=== PATIENT | female | born 1965 | race Hispanic/Latino ===

== ENCOUNTER 2019-09-24 08:25 | Observation (INO) | payer MEDICAID, SELFPAY ==
--- NOTE | ~2019-09-24 | US_ITS ---
US right upper quadrant INDICATION: Pancreatitis PROCEDURE: Realtime right upper abdominal ultrasound. COMPARISON: CT dated 09/24/2019 FINDINGS: The pancreas is normal without focal mass or pancreatic ductal dilation. There is hepatic steatosis. There is normal directional flow in the portal vein. The gallbladder is normal without stones, gallbladder wall thickening or pericholecystic fluid. Comm on bile duct measures 7.6 mm. Positive sonographic Bowser's sign. Spleen is normal. IMPRESSION: 1: Mildly dilated common bile duct with positive sonographic Bowser's sign. No evidence for cholelith iasis. Consider acalculous cholecystitis in the appropriate clinical setting. 2: Hepatic steatosis. Reviewed, dictated and finalized at location A. IMPRESSION: 1: Mildly dilated common bile duct with positive sonographic Bowser's sign. No evidence for cholelithiasis. Consider acalculous cholecystitis in the appropria te clinical setting. 2: Hepatic steatosis.
--- NOTE | ~2019-09-24 | CT_ITS ---
EXAMINATION: CT abdomen pelvis w con DATE: 09/24/2019 09:40 INDICATION: Left abdominal pain. Nausea. TECHNIQUE: Computed tomography (CT) of the abdomen and pelvis was performed with 100 mL Omnipaque 350 intravenous contrast. Automated exposure control and iterative reconstruction technique were employe d. The dose-length product was 573.58 mGy-cm. COMPARISON: CT abdomen and pelvis 08/06/2018 FINDINGS: The visualized portions of the lung bases demonstrate minimal atelectasis. No pleural effus ion. The heart size is normal. No pericardial effusion. The liver, gallbladder, spleen, pancreas, adr enal glands, and kidneys are normal. There are no dilated loops of bowel. The appendix is normal. The re are no pathologically enlarged lymph nodes. There is no free intraperitoneal fluid. There is mild thoracolumbar spondylosis. IMPRESSION: 1. No etiology for the patient's symptoms. Reviewed, dictated and finalized at location A.
--- NOTE | 2019-09-24 08:28 | ED.ABDPAIN ---
HPI - Abdominal Pain General Chief Complaint: Abdominal Pain Stated Complaint: ABD PAIN Time Seen by Provider: 09/24/19 08:28 Source: patient Mode of arrival: ambulatory Limitations: no limitations History of Present Illness HPI narrative: Patient is a 54-year-old female with a history of type 2 diabetes and hyperlipidemia who presents to the emergency department for evaluation of abdominal pain. Patient reports a four-day history of left upper quadrant abdominal pain with radiation to the back. Patient denies any fever, cough or shortness of breath. She reports nausea. Pain is been constant in nature since Saturday. No pelvic pain, no ripping or tearing sensation to the pain. No diarrhea or constipation. No dysuria or hematuria. No abdominal distention. Patient denies any chest pain or diaphoresis. Related Data Home Medications Medication Instructions Recorded Confirmed empagliflozin [Jardiance] 25 mg PO QAM 09/24/19 glimepiride mg BID 09/24/19 metformin 1,000 mg PO BID 09/24/19 simvastatin 10 mg PO HS 09/24/19 sitagliptin [Januvia] mg 09/24/19 Allergies Allergy/AdvReac Type Severity Reaction Status Date / Time No Known Allergies Allergy Unverified 06/18/19 08:55 Review of Systems Review of Systems: Narrative: CONSTITUTIONAL: Denies fever, chills, or sweats. EYES: Denies visual changes, redness, or discharge. ENT: Denies rhinorrhea, congestion, sore throat, or otalgia. CARDIOVASCULAR: Denies chest pain, palpitations, or edema. RESPIRATORY: Denies cough or dyspnea. GASTROINTESTINAL: Reports abdominal pain and nausea GENITOURINARY: Denies dysuria or hematuria. SKIN: Denies rash or itching. MUSCULOSKELETAL: Denies back pain, joint pain, or myalgia. NEUROLOGIC: Denies headache, numbness, or weakness. [facility] Past Medical History Medical History (Updated 09/24/19 @ 10:08 by Delicia Mederos MD) Diabetes Hyperlipidemia Surgical History Surgical History (Updated 09/24/19 @ 08:40 by Delicia Mederos MD) H/O dilation and curettage Social History Social History (Updated 09/24/19 @ 08:40 by Delicia Mederos MD) Smoking status: Never smoker Alcohol intake: never Substance use: never Living arrangements: with family Gender identity (if verbalized by the patient): Female Exam Narrative: Exam Narrative: GENERAL: Awake, alert, conversant HEAD: Normocephalic, atraumatic. EYES: PERRLA and EOMI. ENT: Nares clear, no rhinorrhea or epistaxis. Mucous membranes moist. NECK: Supple. CHEST: No respiratory distress, breathing even and non labored HEART: Regular rate, sinus rhythm ABDOMEN:Non distended, tender in the left upper quadrant, no guarding, no rebound, positive left flank tenderness EXTREMITIES: Normal range of motion. No edema. SKIN: Warm, dry, no rash. NEURO:No focal deficits. Alert and oriented x3 Course Vital Signs Vital signs: Vital Signs Temperature 36.9 C 09/24/19 08:31 Pulse Rate 76 09/24/19 08:31 Respiratory Rate 18 09/24/19 08:31 Blood Pressure 169/69 H 09/24/19 08:31 Pulse Oximetry 98 09/24/19 08:31 Temperature 36.9 C 09/24/19 08:31 Pulse Rate 71 09/24/19 09:48 Respiratory Rate 14 09/24/19 09:48 Blood Pressure 130/63 09/24/19 09:48 Pulse Oximetry 96 09/24/19 09:48 MDM - Abdominal Pain MDM Narrative Medical decision making narrative: Patient presenting for evaluation of abdominal pain, found to have no leukocytosis, no severe electrolyte derangement, very minimal transaminitis, and elevation in lipase is most consistent with pancreatitis. CT scan shows no evidence of infection or necrosis. No sign of obstructive process. No elevation in alkaline phosphatase or hyperbilirubinemia. Patient will be admitted for elevated lipase in setting of abdominal pain which is most likely consistent with pancreatitis. Patient was admitted in stable condition after speaking with hospitalist. Differential Diagnosis Differential diagnosis: Likely
[2019-09-24 08:31] VITALS: BP 169/69; PULSE 76; RESP 18; TEMP 36.9; O2SAT 98
--- NOTE | 2019-09-24 08:37 | ECG_ITS ---
Measurements Intervals [place] Rate: 77 P: 4 [place]: 156 QRS: 3 QRSD: 90 T: 7 QT: 379 QTc: 431 Interpretive Statements SINUS RHYTHM LOW QRS VOLTAGE IN PRECORDIAL LEADS BORDERLINE R WAVE PROGRESSION, ANTERIOR LEADS BORDERLINE ECG Electronically Signed On 09-24-2019 10:09:34 CDT by Magdy Robles D.O.
[2019-09-24 08:56] LABS: Glucose Point of Care 101 (65-105)
[2019-09-24 09:05] LABS: Basophils Percent Auto 0.5 % (0.2-1.2); Eosinophils Absolute Auto 0.1 K/mm3 (0-0.3); Eosinophils Percent Auto 1.9 % (0-4.4); Hematocrit 43.4 % (37.0-47.0); Hemoglobin 14.8 g/dL (12.0-15.0); Immature Granulocyte Absolute 0.02 K/mm3 (0.00-0.031); Immature Granulocyte Percent A 0.3 % (0-0.5); Lymphocytes Absolute Auto 1.67 K/mm3 (0.9-3.2); Lymphocytes Percent Auto 26.6 % (18.3-44.2); Mean Corpuscular HGB Conc 34.1 g/dl (32-36); Mean Corpuscular Hemoglobin 29.8 pg (26-34); Mean Corpuscular Volume 87.3 fl (80-100); Mean Platelet Volume 9.9 fl (7.4-10.4); Monocytes Absolute Auto 0.6 K/mm3 (0.1-0.6); Monocytes Percent Auto 9.6 % (2.6-8.5); Neutrophils Absolute Auto 3.8 K/mm3 (1.3-6.7); Neutrophils Percent Auto 61.1 % (45.5-73.1); Platelet Count Result 240 k/mm3 (150-375); Red Blood Count 4.97 M/mm3 (4.2-5.4); Red Cell Distribution Width 12.3 % (11.5-14.5); White Blood Count 6.3 K/mm3 (4.5-10.0)
[2019-09-24] MEDS: SODIUM CHLORIDE 0.9% IV 1,000 ML 999 ML IV CONT (09:07)
[2019-09-24] MEDS: MORPHINE SULFATE 4 MG/ML INJ IV PUSH ×3 (09:08→20:48)
[2019-09-24] MEDS: ONDANSETRON INJ 4 MG/2 ML VIAL IV PUSH ×2 (09:08→12:57)
[2019-09-24 09:16] LABS: Alanine Aminotransferase 43 U/L (4-35); Albumin Level 4.5 g/dL (3.5-5.1); Alkaline Phosphatase 84 U/L (38-126); Aspartate Amino Transferase 39 U/L (14-36); Bilirubin,Total 0.4 mg/dL (0.2-1.3); Blood Urea Nitrogen 9 mg/dL (7-17); Calcium 9.1 mg/dL (8.4-10.2); Carbon Dioxide 23 mmol/L (22-30); Chloride 108 mmol/L (98-107); Estimated CRCL calculation 97 ml/min; Estimated Glomerular Filt Rate > 60; Glucose 104 mg/dL (65-105); INR 0.9; Lipase 1040 U/L (23-300); Potassium 3.9 mmol/L (3.4-5.0); Prothrombin Time 12.1 Seconds (11.1-14.7); Sodium 139 mmol/L (137-145)
[2019-09-24 09:17] LABS: Add Urine Microscopic? YES; Appearance Urine Clear (Clear); Bacteria Urine 2+ /hpf; Bilirubin Urine Negative (Negative); Blood Urine Negative (Negative); Color Urine Straw (Yellow); Glucose Urine UA 2+ mg/dL (Negative); Ketones Urine Negative (Negative); Leukocyte Esterase Ur Negative LEU/UL (Negative); Mucus Urine Rare /lpf; Nitrate Urine Negative (Negative); Protein Urine Negative (Negative); RBC Urine 0-2 /hpf (0-2); Squamous Epithelial Cell Urine Occasional /hpf (Few); Urobilinogen Urine Negative mg/dL (<2.0)
[2019-09-24 09:17] LABS: Partial Thromboplastin Time 27.8 SECONDS (22.3-36.8)
[2019-09-24 09:28] LABS: Troponin I < 0.012 ng/mL (0.000-0.034)
[2019-09-24 09:33] LABS: D Dimer 0.27 ug/mL (<0.48)
[2019-09-24 09:48] VITALS: BP 130/63; PULSE 71; RESP 14; O2SAT 96
[2019-09-24 11:36] VITALS: BP 118/65; PULSE 67; RESP 18; O2SAT 98
--- NOTE | 2019-09-24 11:53 | ADMGEN ---
This patient, Maylin Lau, was admitted to Medical Room 348-01. Patient/family oriented to hospital policies and general routines including ID bracelet, bed and alarms, visiting hours, pain management, procedures, bathroom and other care routines, personal items, smoking policy, room service/diet, and visiting hours. Valuables list has been completed. Information on how to activate the Rapid Response Team has been discussed. Patient/Family are encouraged to report perceived risks to care and to ask questions if they do not understand what they are told or what they should do.
[2019-09-24] MEDS: SODIUM CHLORIDE 0.9% IV 1,000 ML 125 ML IV CONT ×2 (12:54→20:51)
[2019-09-24 13:15] VITALS: BMI 31.6
--- NOTE | 2019-09-24 13:49 | PC.NURSE ---
During admission questioning I asked patient if she had any thoughts of harming herself or others. I was using assistance with our [employer] machine. Patient had a long and detailed statement about how and why she wanted/would kill herself. However, when asked if she felt that if she had the means to do so right now would she and she stated NO. I do not feel that this patient is a threat to herself, just feeling depressed about her current medical health situation. Suicide risk evaluation done, and I have notified provider.
[2019-09-24 14:00] VITALS: BP 118/62; PULSE 62; RESP 16; TEMP 36.5; O2SAT 99
--- NOTE | 2019-09-24 16:28 | PM.IMHP ---
H&P: HPI History of Present Illness Chief complaint: pancreatitis Narrative: Maylin Lau is a 54 year old female patient is a 54-year-old female with history of diabetes hypertension patient states the last 4 days is having left upper abdominal pain with nausea but no vomit no fever or chills no radiation of the pain, denies any rash along the left upper quadrant and the back, patient bowel movements are fine she has a good appetite, she denies any history of alcohol abuse, patient had a CT scan of the abdomen there was no significant pathology, her lipase are elevated to 1000 there is slight increase in her AST and ALT, bridge engineer system was used to communicate with the patient Review of Systems Review of Systems: All systems reviewed & are unremarkable except as noted in HPI and below PMFSH Past Medical History Medical History (Updated 09/24/19 @ 16:38 by Claudio Ovalle MD) Diabetes Hyperlipidemia Surgical History Surgical History (Updated 09/24/19 @ 08:40 by Delicia Mederos MD) H/O dilation and curettage Family History Family History (Updated 09/24/19 @ 13:28 by Ada Fung RN) Mother Cancer Social History Social History (Updated 09/24/19 @ 08:40 by Delicia Mederos MD) Smoking status: Never smoker Alcohol intake: never Substance use: never Living arrangements: with family Gender identity (if verbalized by the patient): Female Spiritual care concerns: Yes Meds Home Medications and Allergies Home Medications Medication Instructions Recorded Confirmed Type empagliflozin [Jardiance] 25 mg PO QAM 09/24/19 09/24/19 History glimepiride 4 mg PO BID 09/24/19 09/24/19 History metformin 1,000 mg PO BID 09/24/19 09/24/19 History simvastatin 10 mg PO DAILY 09/24/19 09/24/19 History sitagliptin [Januvia] 100 mg PO DAILY 09/24/19 09/24/19 History Allergies Allergy/AdvReac Type Severity Reaction Status Date / Time No Known Allergies Allergy Verified 09/24/19 11:56 Vital Signs Vital Signs - 24 hr 09/24/19 08:31 09/24/19 09:48 09/24/19 11:36 Temperature 98.4 F Pulse Rate 76 71 67 Respiratory Rate 18 14 18 Blood Pressure 169/69 H 130/63 118/65 Pulse Oximetry 98 96 98 09/24/19 14:00 Temperature 97.7 F Pulse Rate 62 Respiratory Rate 16 Blood Pressure 118/62 Pulse Oximetry 99 Exam Narrative: Exam Narrative: Moderately obese Const: General: no acute distress and uncomfortable HENMT: General nose exam: Normal nares present Mouth: Yes moist mucous membranes Eyes: General: appearance normal, both eyes and all related structures Sclera: sclerae normal Neck: Neck: supple Resp: Effort & Inspection: normal respiratory effort Auscultation: clear to auscultation bilaterally Cardio: Rate: regular rate Rhythm: regular rhythm GI: GI Palp: Yes Soft to palpation Other: Patient is tender epigastric as well as left upper quadrant Skin: General skin exam: normal color Neuro: Speech: normal speech Sensory Exam: normal sensation Extrem: General: normal to inspection Psych: Affect: Anxious affect present H&P: Results Labs Labs: Short CBC 09/24/19 Range/Units 08:57 WBC 6.3 (4.5-10.0) K/mm3 Hgb 14.8 (12.0-15.0) g/dL Hct 43.4 (37.0-47.0) % Plt Count 240 (150-375) k/mm3 BMP 09/24/19 08:57 Sodium 139 Potassium 3.9 Chloride 108 H Carbon Dioxide 23 BUN 9 Creatinine 0.50 L Glucose 104 Calcium 9.1 Cardiac Enzymes 09/24/19 Range/Units 08:57 Troponin I < 0.012 (0.000-0.034) ng/mL Liver Function 09/24/19 Range/Units 08:57 Total Bilirubin 0.4 (0.2-1.3) mg/dL AST 39 H (14-36) U/L ALT 43 H (4-35) U/L Alkaline Phosphatase 84 (38-126) U/L Albumin 4.5 (3.5-5.1) g/dL Urine 09/24/19 Range/Units 09:00 Urine Color Straw (Yellow) Urine Appearance Clear (Clear) Urine pH 6.0 (5.0-9.0) Ur Specific [place] 1.010 (1.001-1.035) Urine Protein Negat
[2019-09-24 17:34] LABS: Hemoglobin A1C 7.2 % (<5.7)
[2019-09-24 21:47] VITALS: BP 120/65; PULSE 70; RESP 16; TEMP 36.4; O2SAT 95
[2019-09-25] MEDS: MORPHINE SULFATE 4 MG/ML INJ IV PUSH ×3 (00:49→09:30)
[2019-09-25 00:54] LABS: Glucose Point of Care 102 (65-105)
[2019-09-25] MEDS: SODIUM CHLORIDE 0.9% IV 1,000 ML 125 ML IV CONT ×3 (04:56→21:52)
[2019-09-25 05:05] VITALS: BP 120/60; PULSE 68; RESP 15; TEMP 36.2; O2SAT 95
[2019-09-25 05:09] LABS: Glucose Point of Care 105 (65-105)
[2019-09-25 05:27] LABS: Hematocrit 39.5 % (37.0-47.0); Hemoglobin 13.3 g/dL (12.0-15.0); Mean Corpuscular HGB Conc 33.7 g/dl (32-36); Mean Platelet Volume 9.8 fl (7.4-10.4); Platelet Count Result 212 k/mm3 (150-375); Red Blood Count 4.44 M/mm3 (4.2-5.4); Red Cell Distribution Width 12.6 % (11.5-14.5); White Blood Count 4.7 K/mm3 (4.5-10.0)
[2019-09-25 05:42] LABS: Alanine Aminotransferase 41 U/L (4-35); Albumin Level 3.7 g/dL (3.5-5.1); Alkaline Phosphatase 68 U/L (38-126); Aspartate Amino Transferase 39 U/L (14-36); Bilirubin,Total 0.5 mg/dL (0.2-1.3); Blood Urea Nitrogen 9 mg/dL (7-17); Calcium 8.6 mg/dL (8.4-10.2); Carbon Dioxide 24 mmol/L (22-30); Chloride 107 mmol/L (98-107); Cholesterol 149 mg/dL (0-200); Estimated CRCL calculation 97 ml/min; Estimated Glomerular Filt Rate > 60; Glucose 105 mg/dL (65-105); HDL Direct 34 mg/dL; Lipase 151 U/L (23-300); Potassium 3.9 mmol/L (3.4-5.0); Sodium 136 mmol/L (137-145); Triglycerides 176 mg/dL (<150)
[2019-09-25 05:46] LABS: Hemoglobin A1C 7.3 % (<5.7)
[2019-09-25 05:53] LABS: LDL Cholesterol Direct 89 mg/dL
[2019-09-25 06:48] LABS: Hepatitis B Surface Antigen Negative (Negative)
[2019-09-25 06:54] LABS: HAV RESULT Negative (Negative); Hepatitis B Core IgM Result Negative (Negative)
[2019-09-25 07:06] LABS: Hepatitis C Virus Antibody Negative (Negative)
[2019-09-25 11:33] LABS: Glucose Point of Care 145 (65-105)
[2019-09-25] MEDS: ONDANSETRON INJ 4 MG/2 ML VIAL IV PUSH (12:35)
[2019-09-25 14:00] VITALS: BP 115/59; PULSE 76; RESP 18; TEMP 36.4; O2SAT 97
--- NOTE | 2019-09-25 15:19 | PM.IMPN ---
Progress Note: A&P Assessment and Plan (1) Acute pancreatitis: Qualifiers: Acute pancreatitis complication: unspecified Pancreatitis type: other Qualified Code(s): K85.80 - Other acute pancreatitis without necrosis or infection Code(s): K85.90 - Acute pancreatitis without necrosis or infection, unspecified Status: Acute Assessment and Plan: 09/25/19 15:19 Maylin Lau is a 54 year old female patient is a 54-year-old female with history of diabetes hypertension patient states the last 4 days is having left upper abdominal pain with nausea but no vomit no fever or chills no radiation of the pain, denies any rash along the left upper quadrant and the back, patient bowel movements are fine she has a good appetite, she denies any history of alcohol abuse, patient had a CT scan of the abdomen there was no significant pathology, her lipase are elevated to 1000 there is slight increase in her AST and ALT, service plumber system was used to communicate with the patient will keep patient NPO will hydrate the patient monitor lipase, further evaluate will do abdominal ultrasound Today patient still complains of left upper quadrant pain, ultrasound abdomen essentially normal as well as CT scan of abdomen did not show any pathology patient lipase are now back to no AST and ALT slightly elevated however acute hepatitis panel is negative, patient is quite tender in left upper quadrant will continue monitor 1 more day and reassess tomorrow possibly discharge. (2) Elevated liver enzymes: Code(s): R74.8 - Abnormal levels of other serum enzymes Status: Acute Assessment and Plan: Most likely secondary to inflammation with hepatitis panel will follow-up on liver ultrasound, liver ultrasound essentially normal except fatty liver acute hepatitis panel is negative (3) Diabetes: Code(s): E11.9 - Type 2 diabetes mellitus without complications Status: Acute Assessment and Plan: Will continue home regimen and monitor, patient's hemoglobin A1c is 7.3 Subjective Date/time seen: 09/25/19 15:19 Maylin Lau is a 54 year old female patient is a 54-year-old female with history of diabetes hypertension patient states the last 4 days is having left upper abdominal pain with nausea but no vomit no fever or chills no radiation of the pain, denies any rash along the left upper quadrant and the back, patient bowel movements are fine she has a good appetite, she denies any history of alcohol abuse, patient had a CT scan of the abdomen there was no significant pathology, her lipase are elevated to 1000 there is slight increase in her AST and ALT, service plumber system was used to communicate with the patient will keep patient NPO will hydrate the patient monitor lipase, further evaluate will do abdominal ultrasound Today patient still complains of left upper quadrant pain, ultrasound abdomen essentially normal as well as CT scan of abdomen did not show any pathology patient lipase are now back to no AST and ALT slightly elevated however acute hepatitis panel is negative, patient is quite tender in left upper quadrant will continue monitor 1 more day and reassess tomorrow possibly discharge. Review of Systems Review of Systems: All systems reviewed & are unremarkable except as noted in HPI and below Exam Narrative: Exam Narrative: Moderately obese Const: General: no acute distress and uncomfortable HENMT: General nose exam: Normal nares present Mouth: Yes moist mucous membranes Eyes: General: appearance normal, both eyes and all related structures Sclera: sclerae normal Neck: Neck: supple Resp: Effort & Inspection: normal respiratory effort Auscultation: clear to auscultation bilaterally Cardio: Rate: regular rate Rhythm: regular rhythm GI: Other: Patient is tender epigastric as well as left upper quadrant Skin: General skin exam: normal color Neuro: Speech: n
[2019-09-25 16:39] LABS: Glucose Point of Care 152 (65-105)
[2019-09-25 20:34] VITALS: BP 133/63; PULSE 77; RESP 20; TEMP 37.6; O2SAT 96
[2019-09-25 21:50] VITALS: PULSE 77; RESP 20; O2SAT 96
[2019-09-26 00:30] LABS: Glucose Point of Care 139 (65-105)
[2019-09-26 05:53] VITALS: BP 120/65; PULSE 76; RESP 16; TEMP 36.5; O2SAT 95
[2019-09-26] MEDS: SODIUM CHLORIDE 0.9% IV 1,000 ML 125 ML IV CONT (06:05)
[2019-09-26 07:24] LABS: Alanine Aminotransferase 37 U/L (4-35); Albumin Level 3.8 g/dL (3.5-5.1); Alkaline Phosphatase 69 U/L (38-126); Aspartate Amino Transferase 32 U/L (14-36); Bilirubin,Total 0.5 mg/dL (0.2-1.3); Blood Urea Nitrogen 6 mg/dL (7-17); Calcium 8.8 mg/dL (8.4-10.2); Carbon Dioxide 28 mmol/L (22-30); Chloride 105 mmol/L (98-107); Estimated CRCL calculation 97 ml/min; Estimated Glomerular Filt Rate > 60; Glucose 116 mg/dL (65-105); Lipase 196 U/L (23-300); Potassium 3.4 mmol/L (3.4-5.0); Sodium 136 mmol/L (137-145)
[2019-09-26 07:43] LABS: Hematocrit 40.3 % (37.0-47.0); Hemoglobin 13.7 g/dL (12.0-15.0); Mean Corpuscular Hemoglobin 29.7 pg (26-34); Mean Corpuscular Volume 87.4 fl (80-100); Platelet Count Result 210 k/mm3 (150-375); Red Blood Count 4.61 M/mm3 (4.2-5.4); Red Cell Distribution Width 12.2 % (11.5-14.5); White Blood Count 3.7 K/mm3 (4.5-10.0)
[2019-09-26 07:58] LABS: Glucose Point of Care 122 (65-105)
[2019-09-26 08:36] VITALS: PULSE 76; RESP 16; O2SAT 94
[2019-09-26 11:47] LABS: Glucose Point of Care 133 (65-105)
[2019-09-26 14:00] VITALS: BP 126/62; PULSE 94; RESP 16; TEMP 36.7; O2SAT 97
--- NOTE | 2019-09-26 14:49 | PM.DS ---
DS: Admitting Diagnosis Admitting Diagnosis Admitting Diagnosis: Other acute pancreatitis without necrosis or infection DS: Discharge Diagnosis Discharge Diagnosis (1) Acute pancreatitis: Qualifiers: Acute pancreatitis complication: unspecified Pancreatitis type: other Qualified Code(s): K85.80 - Other acute pancreatitis without necrosis or infection Code(s): K85.90 - Acute pancreatitis without necrosis or infection, unspecified Status: Acute Assessment and Plan: 09/25/19 15:19 Maylin Lau is a 54 year old female patient is a 54-year-old female with history of diabetes hypertension patient states the last 4 days is having left upper abdominal pain with nausea but no vomit no fever or chills no radiation of the pain, denies any rash along the left upper quadrant and the back, patient bowel movements are fine she has a good appetite, she denies any history of alcohol abuse, patient had a CT scan of the abdomen there was no significant pathology, her lipase are elevated to 1000 there is slight increase in her AST and ALT, transcription system was used to communicate with the patient will keep patient NPO will hydrate the patient monitor lipase, further evaluate will do abdominal ultrasound Today patient still complains of left upper quadrant pain, ultrasound abdomen essentially normal as well as CT scan of abdomen did not show any pathology patient lipase are now back to no AST and ALT slightly elevated however acute hepatitis panel is negative, patient is quite tender in left upper quadrant will continue monitor 1 more day and reassess tomorrow possibly discharge. (2) Elevated liver enzymes: Code(s): R74.8 - Abnormal levels of other serum enzymes Status: Acute Assessment and Plan: Most likely secondary to inflammation with hepatitis panel will follow-up on liver ultrasound, liver ultrasound essentially normal except fatty liver acute hepatitis panel is negative (3) Diabetes: Code(s): E11.9 - Type 2 diabetes mellitus without complications Status: Acute Assessment and Plan: Will continue home regimen and monitor, patient's hemoglobin A1c is 7.3 DS: Summary Hospital Course Reason for hospitalization: Maylin Lau is a 54 year old female patient is a 54-year-old female with history of diabetes hypertension patient states the last 4 days is having left upper abdominal pain with nausea but no vomit no fever or chills no radiation of the pain, denies any rash along the left upper quadrant and the back, patient bowel movements are fine she has a good appetite, she denies any history of alcohol abuse, patient had a CT scan of the abdomen there was no significant pathology, her lipase are elevated to 1000 there is slight increase in her AST and ALT, transcription system was used to communicate with the patient Hospital Course: 09/25/19 15:19 Maylin Lau is a 54 year old female patient is a 54-year-old female with history of diabetes hypertension patient states the last 4 days is having left upper abdominal pain with nausea but no vomit no fever or chills no radiation of the pain, denies any rash along the left upper quadrant and the back, patient bowel movements are fine she has a good appetite, she denies any history of alcohol abuse, patient had a CT scan of the abdomen there was no significant pathology, her lipase are elevated to 1000 there is slight increase in her AST and ALT, transcription system was used to communicate with the patient will keep patient NPO will hydrate the patient monitor lipase, further evaluate will do abdominal ultrasound Today patient still complains of left upper quadrant pain, ultrasound abdomen essentially normal as well as CT scan of abdomen did not show any pathology patient lipase are now back to normal, AST and ALT slightly elevated however acute hepatitis panel is negative, patient is quite tende
== END 2019-09-26 16:00 | disposition home or self-care (01) ==
LOC: ANHED 10:39 → ANH3MED 10:53
PROVIDERS: Admitting Provider Family Medicine; Emergency Provider Emergency Medicine; Visit Provider Family Medicine
DX: K85.80 Other acute pancreatitis without necrosis or infection (principal); R74.8 Abnormal levels of other serum enzymes; E11.9 Type 2 diabetes mellitus without complications; I10 Essential (primary) hypertension; E78.5 Hyperlipidemia, unspecified; Z79.84 Long term (current) use of oral hypoglycemic drugs; Z79.899 Other long term (current) drug therapy
CPT/HCPCS: 36415; 74177; 76705; 80053; 80061; 80074; 81001; 82948; 83036; 83690; 84484; 85025; 85027; 85380; 85610; 85730; 93005; 96360; 96361; 96365; 96374; 96375; 96376; 99285; A9270; G0378; G0379; J0131; J2270; J2405; J7030; Q9967

== ENCOUNTER → 2020-08-23 06:49 | Outpatient (CLI) | payer OTHER, SELFPAY ==
[2020-08-23 20:46] LABS: SARS-CoV-2 RNA PCR Negative
== END ==
PROVIDERS: Visit Provider Obstetrics & Gynecology
DX: Z01.812 Encounter for preprocedural laboratory examination (principal); Z20.822 Contact with and (suspected) exposure to COVID-19
CPT/HCPCS: C9803; U0003; U0005

== ENCOUNTER 2020-08-23 08:27 | Outpatient (CLI) | payer OTHER, SELFPAY ==
--- NOTE | 2020-08-23 12:34 | ECG_ITS ---
Measurements Intervals [place] Rate: 73 P: 55 [place]: 159 QRS: -23 QRSD: 87 T: 39 QT: 358 QTc: 396 Interpretive Statements SINUS RHYTHM BORDERLINE R WAVE PROGRESSION, ANTERIOR LEADS BASELINE ARTIFACT- III, AVF BORDERLINE ECG Electronically Signed On 08-23-2020 14:53:32 CDT by Magdy Robles D.O.
[2020-08-23 13:09] LABS: Anion Gap 8 mmol/L (8-16); Blood Urea Nitrogen 11 mg/dL (7-17); Calcium 9.2 mg/dL (8.4-10.2); Carbon Dioxide 26 mmol/L (22-30); Chloride 102 mmol/L (98-107); Estimated Glomerular Filt Rate > 60; Glucose 341 mg/dL (65-105); Potassium 4.1 mmol/L (3.4-5.0); Sodium 136 mmol/L (137-145)
== END 2020-08-23 08:28 | disposition home or self-care (01) ==
PROVIDERS: Anesthesiology; Visit Provider Obstetrics & Gynecology
DX: E11.9 Type 2 diabetes mellitus without complications (principal); Z01.818 Encounter for other preprocedural examination; R94.31 Abnormal electrocardiogram [ECG] [EKG]
CPT/HCPCS: 36415; 80048; 93005; C9803; U0003; U0005

== ENCOUNTER 2020-08-26 01:09 | Day surgery (SDC) | payer OTHER, SELFPAY ==
[2020-08-23 12:00] VITALS: BP 120/64; PULSE 88; RESP 18; TEMP 36.3; O2SAT 97; BMI 31.4
--- NOTE | 2020-08-25 12:09 | WPDANESEPPF ---
Anes - Initial Pre Proc Eval Procedure: Operation Date: 08/26/20 10:30 Proposed Procedures p Loop Electrical Excision Procedure - Shade Garcia MD Date/Time: 08/25/20 12:09 Surgeon: Shade Garcia MD Pre Op Diagnosis: carcinoma of the cervix D06.9 Patient Data Age: 54 Gender: F Height: 1.57 m Weight: 78 kg Last Vital Signs Temp 36.3 C L 08/23/20 12:00 Pulse 88 08/23/20 12:00 Resp 18 08/23/20 12:00 BP 120/64 08/23/20 12:00 Pulse Ox 97 08/23/20 12:00 Allergies Allergy/AdvReac Type Severity Reaction Status Date / Time No Known Allergies Allergy Verified 08/26/20 09:28 Home Medications Medication Instructions Recorded Confirmed Type Januvia 100 mg PO DAILY 09/24/19 08/23/20 History Jardiance 25 mg PO QAM 09/24/19 08/23/20 History metformin 1,000 mg PO BID 09/24/19 08/23/20 History simvastatin 10 mg PO DAILY 09/24/19 08/23/20 History albuterol sulfate 2 puff INHALATION PRN PRN 08/23/20 08/23/20 History multivitamin [Multi-Vitamin] 1 tablet PO DAILY 08/23/20 08/23/20 History phenazopyridine [Pyridium] See Rx Instructions .ROUTE .COMPLEX 08/23/20 08/23/20 History Patient hx anesthesia problems: none Family hx anesthesia problems: none PMFSH Past Medical History Medical History (Updated 08/26/20 @ 06:31 by Shade Garcia MD) Asthma Cervical cancer cin3 EVAN III with severe dysplasia Diabetes Fibromyalgia KARLY (generalized anxiety disorder) History of female sterilization Hyperlipidemia Menopausal disorder Surgical History Surgical History (Updated 08/26/20 @ 06:31 by Shade Garcia MD) Delivery by section H/O dilation and curettage Tubal ligation status Family History Family History Mother Cancer Social History Social History (Updated 08/26/20 @ 06:40 by Shade Garcia MD) Smoking status: Never smoker Second hand tobacco smoke exposure: No Alcohol intake: never Substance use: never Substance use type: does not use Living arrangements: alone Occupation/Education: unemployed Gender identity (if verbalized by the patient): Female Sexual Orientation (if Verbalized by the Patient): Straight or Heterosexual Spiritual care concerns: No Agree to blood products: Yes Anes - Eval Final PreProcedure Day of Procedure 08/25/20 12:09 Patient weight: obese Heart: regular rate and rhythm Lungs: clear to auscultation and normal air movement Airway: Mallampati scale class III Neurological: alert and oriented Last oral intake: >/= 8 hours ASA classification: III Emergent: no Anesthetic plan: proceed Anesthesia type and monitoring: general GIVS and standard monitoring Informed Consent: The patient's anesthetic plan and its attendant risks and benefits were discussed with the patient/family/POA. Questions were solicited and answers provided to the satisfaction of the patient/family/POA.
--- NOTE | 2020-08-26 06:10 | PM.IMHP ---
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 She confirmed history of vaginal bleeding after intercourse approximately 2 months prior. She denied fevers, abdominal pain, new sexual partners. colposcopy performed with cx bx and ecc on 07/26/20 revealed--- Cervical intraepithelial neoplasia grade III with severe dysplasia - Colposcopy biopsy results: A. CERVIX BIOPSY: HIGH-GRADE (SEVERE) SQUAMOUS DYSPLASIA (EVAN III). ACUTE AND CHRONIC CERVICITIS. B. ENDOCERVICAL BIOPSY: SMALL DETACHED FRAGMENTS OF HIGH-GRADE DYSPLASTIC SQUAMOUS MUCOSA. Discussed results with patient and need for LEEP. Will have at [facility] with Dr. Garcia I explained her condition procedure and risks including but not limited to bleeding infection injury to cervix risk of anesthesia she understands accepts and agrees to proceed Chief Complaint: EVAN 3 Review of Systems Review of Systems: All systems reviewed & are unremarkable except as noted in HPI and below Constitutional: Constitutional: Reports no additional constitutional complaints Eyes: Eyes: Reports no additional eye complaints ENT: Reports system reviewed and no additional complaints, except as documented Cardiovascular: Cardiovascular: Reports no additional cardiovascular complaints Respiratory: Respiratory: Reports no additional respiratory complaints Gastrointestinal: Gastrointestinal: Reports no additional gastrointestinal complaints Genitourinary: Genitourinary: Reports no additional female genitourinary complaints Musculoskeletal: Musculoskeletal: Reports no additional musculoskeletal complaints Integumentary/Breasts: Skin/Breast: Reports system reviewed and no additional complaints, except as docu Neurologic: Reports system reviewed and no additional complaints, except as documented Psychiatric: Psychiatric: Reports no additional psychiatric complaints Endocrine: Endocrine: Reports no additional endocrine complaints Hematologic/Lymphatic: Hematologic/Lymphatic: Reports no additional hematologic/lymphatic complaints Allergic/Immunologic: Allergic/Immunologic: Reports no additional allergic/immunologic complaints FOR[facility]LY [facility], [facility] Past Medical History Medical History (Updated 08/26/20 @ 06:31 by Shade Garcia MD) Asthma Cervical cancer cin3 EVAN III with severe dysplasia Diabetes Fibromyalgia KARLY (generalized anxiety disorder) History of female sterilization Hyperlipidemia Menopausal disorder Surgical History Surgical History (Updated 08/26/20 @ 06:31 by Shade Garcia MD) Delivery by section H/O dilation and curettage Tubal ligation status Family History Family History Mother Cancer Social History Social History (Updated 08/26/20 @ 06:40 by Shade Garcia MD) Smoking status: Never smoker Second hand tobacco smoke exposure: No Alcohol intake: never Substance use: never Substance use type: does not use Living arrangements: alone Occupation/Education: unemployed Gender identity (if verbalized by the patient): Female Sexual Orientation (if Verbalized by the Patient): Straight or Heterosexual Spiritual care concerns: No Agree to blood products: Yes Meds Home Medications and Allergies Home Medications Medication Instructions Recorded Confirmed Type Januvia 100 mg PO DAILY 09/24/19 08/23/20 History Jardiance 25 mg PO QAM 09/24/19 08/23/20 History metformin 1,000 mg PO BID 09/24/19 08/23/20 History simvastatin 10 mg PO DAILY 09/24/19 08/23/20 History albuterol sulfate 2 puff INHALATION PRN PRN 08/23/20 08/23/20 History multivitamin [Multi-Vitamin] 1 tablet PO DAILY 08/23/20 08/23/20 History phenazopyridine [Pyridium] See Rx Instructions .ROUTE .COMPLEX 08/23/20 08/23/20 History Allergies Allergy/AdvReac Type Severity Re
--- NOTE | 2020-08-26 06:23 | P.HPUP_ITS ---
History and Physical Update Update Date/Time: 08/26/20 06:23 History and Physical has been reviewed, including an updated exam of the patient. There are NO changes in the patient's condition. Risks, benefits, and alternatives have been discussed and questions answered. Patient agrees to proceed with procedure. 08/26/20 06:10 56yo HF with SEVERE DYSPLASIA OF CERVIX CIN3; here for LEEP She had abnormal Pap 07/08/20 with HSIL and HPV. She confirmed history of vaginal bleeding after intercourse approximately 2 months prior. She denied fevers, abdominal pain, new sexual partners. colposcopy performed with cx bx and ecc on 07/26/20 revealed--- Cervical intraepithelial neoplasia grade III with severe dysplasia - Colposcopy biopsy results: A. CERVIX BIOPSY: HIGH-GRADE (SEVERE) SQUAMOUS DYSPLASIA (EVAN III). ACUTE AND CHRONIC CERVICITIS. B. ENDOCERVICAL BIOPSY: SMALL DETACHED FRAGMENTS OF HIGH-GRADE DYSPLASTIC SQUAMOUS MUCOSA. Discussed results with patient and need for LEEP. Will have at [facility] with Dr. Garcia I explained her condition procedure and risks including but not limited to bleeding infection injury to cervix risk of anesthesia she understands accepts and agrees to proceed
[2020-08-26] MEDS: ACETAMINOPHEN 500 MG TABLET 1000 MG PO (09:55)
[2020-08-26] MEDS: LACTATED RINGERS 1,000 ML 30 ML IV CONT (10:06)
[2020-08-26 10:09] VITALS: BP 103/56; PULSE 69; RESP 18; TEMP 36.3; O2SAT 97; BMI 31.1
--- NOTE | 2020-08-26 10:12 | SUR.PREOP ---
4148; USED [facility] FOR AMHARIC SPEAKING. FORMERLY [facility] #[id number]. ASKED ALL QUESTIONS FOR PREOP, COMFIRMED NPO STATUS, MEDICATIONS, PHARMACY, DR VALENCIA DISCUSSED ANESTHESIA USING [facility] ALSO. EXPLAINED PREOP PROCESS
[2020-08-26 10:19] LABS: Glucose Point of Care 218 (65-105)
[2020-08-26] MEDS: ceFAZolin SODIUM 1 GM VIAL 2 GM IV PUSH (11:55)
--- NOTE | 2020-08-26 12:25 | P.OP_ITS ---
Procedure Note - Detailed Date of procedure: 08/26/20 Pre-op diagnosis: carcinoma of the cervix D06.9 CIN3 Post-op diagnosis: same Procedure performed: LEEP Loop electrosurgical excision procedure ectocervical and endocervical Description of procedure: Informed consent obtained the patient was taken to the operating room given IV general anesthesia placed in the dorsal lithotomy position prepped and draped use sterile fashion a time-out was performed. Speculum was placed into the vagina vinegar wash of the cervix was followed by iodine staining of the cervix in the nonstaining areas weight lesions of the ectocervix was identified. Sutures were placed at 3 and 9:00 a.m. on the cervix. Using a medium loop the ectocervical disease was removed. Following this a small loop was used to remove the endocervical disease. Specimens were sent separately. A ball electrode was then used to and a coagulate the base of the cervix. And then Monsel's solution was applied to the cervix. Patient tolerated procedure well the speculum was removed patient was taken to the recovery stable condition Implants: None Anesthesia: GETA Surgeon: Shade Garcia MD Surveillance Technician: delivery driver assistant x1 Estimated blood loss (mL): 10 IV fluids (mL): 1,000 Urine output (mL): 100 Drains: No Packing: No Pathology: yes (LEEP-endocervical and ectocervical) Complications: None Condition: stable Disposition: same day Findings: Nonstaining areas of the ectocervix medium loop for the ectocervix small loop for the endocervix sutures at 3 and 9:00 a.m. Monsel's solution hemostasis Counts correct Complications none Antibiotic prophylaxis Ancef 2 g Taken to recovery room stable condition
[2020-08-26 12:26] VITALS: BP 108/65; PULSE 74; RESP 10; O2SAT 92
--- NOTE | 2020-08-26 12:27 | SUR.PREOP ---
1015; LATE NOTE, DR VALENCIA NOTIFIED OF ACCUCHECK OF 218. NO NEW ORDERS
[2020-08-26 12:55] VITALS: BP 109/66; PULSE 72; RESP 16; O2SAT 94
[2020-08-26 13:25] VITALS: BP 127/71; PULSE 70; RESP 16
[2020-08-26 13:37] LABS: Glucose Point of Care 221 (65-105)
[2020-08-26 13:37] LABS: Glucose Point of Care 168 (65-105)
== END 2020-08-26 13:30 | disposition home or self-care (01) ==
PROVIDERS: Visit Provider Obstetrics & Gynecology
PROC: 0UBC7ZZ Excision of Cervix, Via Natural or Artificial Opening (ICD-10-PCS; CPT 57522; principal; 2020-08-26 10:30)
DX: D06.9 Carcinoma in situ of cervix, unspecified (principal); Z79.84 Long term (current) use of oral hypoglycemic drugs; Z79.51 Long term (current) use of inhaled steroids; J45.909 Unspecified asthma, uncomplicated; E66.9 Obesity, unspecified; Z68.31 Body mass index [BMI] 31.0-31.9, adult
CPT/HCPCS: 57522; 82948; 88305; A9270; J0690; J2250; J2704; J3010; J7120

== ENCOUNTER 2020-12-30 13:00 | Emergency (ER) | payer OTHER, SELFPAY ==
[2020-12-30] VITALS (31 sets, daily range): BP systolic 106–129; BP diastolic 57–90; PULSE 74–108; RESP 13–31; TEMP 36.8–39; O2SAT 94–98
--- NOTE | ~2020-12-30 | CT_ITS ---
EXAMINATION: CT abdomen pelvis w con INDICATION: Left lower quadrant abdominal pain and fever TECHNIQUE: Computed tomographic images of the abdomen and pelvis were obtained after the administrati on of 100 cc of Omnipaque 350 intravenous contrast. The dose-length product (DLP) was 1100.54 mGy-cm. Automated exposure control and iterative reconstruction technique were employed. COMPARISON: None available FINDINGS: Minimal dependent atelectasis is present in the lung bases. The heart size is normal. The l iver, spleen, pancreas, gallbladder, and adrenal glands are normal. The kidneys are unremarkable. The re is mild urothelial enhancement of the ureters. No pathologically enlarged abdominal or pelvic lymp h nodes are identified. There is no free intraperitoneal gas or evidence of bowel obstruction. The ap pendix is normal. There is mild lumbar spondylosis. IMPRESSION: 1. Mild urothelial enhancement of the ureters which, when considered in conjunction with urinalysis, is consistent with urinary tract infection. Reviewed, dictated and finalized at location A. IMPRESSION: 1. Mild urothelial enhancement of the ureters which, when considered in conjunc tion with urinalysis, is consistent with urinary tract infection.
[2020-12-30 13:51] LABS: Basophils Percent Auto 0.3 % (0.2-1.2); Eosinophils Absolute Auto 0.1 K/mm3 (0-0.3); Eosinophils Percent Auto 0.9 % (0-4.4); Hematocrit 42.5 % (37.0-47.0); Hemoglobin 14.3 g/dL (12.0-15.0); Immature Granulocyte Absolute 0.03 K/mm3 (0.00-0.031); Immature Granulocyte Percent A 0.3 % (0-0.5); Lymphocytes Absolute Auto 2.03 K/mm3 (0.9-3.2); Lymphocytes Percent Auto 21.7 % (18.3-44.2); Mean Corpuscular HGB Conc 33.6 g/dl (32-36); Mean Corpuscular Hemoglobin 29.2 pg (26-34); Mean Corpuscular Volume 86.9 fl (80-100); Monocytes Percent Auto 10.3 % (2.6-8.5); Neutrophils Absolute Auto 6.2 K/mm3 (1.3-6.7); Neutrophils Percent Auto 66.5 % (45.5-73.1); Platelet Count Result 233 k/mm3 (150-375); Red Blood Count 4.89 M/mm3 (4.2-5.4); Red Cell Distribution Width 12.3 % (11.5-14.5); White Blood Count 9.4 K/mm3 (4.5-10.0)
[2020-12-30 14:09] LABS: Add Urine Microscopic? YES; Appearance Urine Clear (Clear); Bacteria Urine Trace /hpf; Bilirubin Urine Negative (Negative); Blood Urine Negative (Negative); Color Urine Straw (Yellow); Glucose Urine UA Negative (Negative); Ketones Urine Negative (Negative); Leukocyte Esterase Ur 2+ LEU/UL (Negative); Mucus Urine Rare /lpf; Nitrate Urine Negative (Negative); Protein Urine Negative (Negative); RBC Urine 0-2 /hpf (0-2); Urobilinogen Urine Negative mg/dL (<2.0); WBC Urine 31-50 /hpf
[2020-12-30 14:14] LABS: Anion Gap 11 mmol/L (8-16); Blood Urea Nitrogen 8 mg/dL (7-17); Calcium 9.6 mg/dL (8.4-10.2); Carbon Dioxide 22 mmol/L (22-30); Chloride 101 mmol/L (98-107); Estimated Glomerular Filt Rate > 60; Glucose 192 mg/dL (65-110); Potassium 4.1 mmol/L (3.4-5.0); Sodium 134 mmol/L (137-145)
[2020-12-30 14:23] LABS: Specific Grav Ur 1.002 (1.001-1.035)
[2020-12-30 14:48] LABS: Lactic Acid Reflex 1.7 mmol/L (0.7-2.1)
[2020-12-30 15:31] LABS: Alanine Aminotransferase 36 U/L (4-35); Albumin Level 4.5 g/dL (3.5-5.1); Alkaline Phosphatase 80 U/L (38-126); Aspartate Amino Transferase 42 U/L (14-36); Bilirubin,Total 0.5 mg/dL (0.2-1.3); Lipase 249 U/L (23-300)
[2020-12-30] MEDS: SODIUM CHLORIDE 0.9% IV 1,000 ML 999 ML IV CONT (16:58)
[2020-12-30] MEDS: MORPHINE SULFATE (*CRX) 2 MG/ML INJ IV PUSH (17:32)
[2020-12-30] MEDS: KETOROLAC 30 MG/ML VIAL (*BKC) IV PUSH (19:35)
--- NOTE | 2020-12-30 20:06 | PC.NURSE ---
Pelvic exam done with this RN as mineral wool insulation supervisor.
--- NOTE | 2020-12-30 20:48 | ED.FEVER ---
HPI - Fever General Chief Complaint: Fever Stated Complaint: Body Aches, Fever Time Seen by Provider: 12/30/20 13:30 Source: RN notes reviewed History of Present Illness HPI Narrative: Patient presents emergency department from home for fever. Patient states symptoms again 3 days ago states she has had a fever as well as pain in the bilateral lower back worse on the left and left lower quadrant abdominal pain pain is described as aching in nature she denies any chest pain shortness of breath cough nausea vomiting diarrhea or any other symptoms or concerns states she last took Tylenol at 7 AM this morning Related Data Allergies Allergy/AdvReac Type Severity Reaction Status Date / Time No Known Allergies Allergy Verified 12/30/20 13:24 Review of Systems Review of Systems: Gen.: Denies fevers or chills ENT: Denies congestion Respiratory: Denies shortness of breath or cough CV: Denies chest pain or palpitations GI: Reports lower abdominal pain denies nausea, emesis or diarrhea denies burning, urgency, frequency or hematuria Musculoskeletal: Reports bilateral lower back pain Neuro: Denies numbness, tingling, weakness or focal weakness Skin: Denies rash Except as documented, all other systems reviewed and negative [facility] Past Medical History Medical History (Updated 12/30/20 @ 20:52 by Jacob Brown DO) Patient denies significant medical history Social History Social History (Updated 12/30/20 @ 20:49 by Jacob Brown DO) Smoking status: Never smoker Exam Narrative: APPEARANCE: No acute distress, nontoxic, resting in bed EYES: EOMI HEENT: Normocephalic, atraumatic, OMM RESPIRATORY: No respiratory distress Clear to auscultation bilaterally with no rhonchi wheezing or rales. CARDIOVASCULAR: Regular rate and rhythm without murmurs rubs or gallops. ABDOMINAL: Soft, nondistended tender palpation left lower quadrant no tenderness left upper quadrant, right upper quadrant right lower quadrant no rebound or guarding : Normal external exam small amount of white discharge in cervical canal no vaginal bleeding cervix closed, left adnexal tenderness, no right adnexal tenderness no cervical motion tenderness MUSCULOSKELETAl: Moves all extremities. No clubbing, cyanosis or edema. NEURO: Awake and alert. Following commands, speech normal, no focal deficits SKIN:: Warm, dry. No rashes lesions or abrasions PSYCHIATRIC: Normal affect/mood, Course Course Emergency Course: Patient states that they are feeling much better at this time. States abdominal pain has resolved. Repeat abdominal exam shows the patient's abdomen to be soft and nontender. Discussed with patient results of workup and diagnosis. Discussed need for follow-up with primary care physician, reasons to return to the emergency department in proper use of medication. Patient understands and agrees to current treatment plan Vital Signs Vital signs: Vital Signs Temperature 100.1 F H 12/30/20 13:19 Pulse Rate 108 H 12/30/20 13:19 Respiratory Rate 18 12/30/20 13:19 Blood Pressure 129/86 12/30/20 13:19 Pulse Oximetry 98 12/30/20 13:19 Temperature 98.3 F 12/30/20 20:28 Pulse Rate 74 12/30/20 19:45 Respiratory Rate 16 12/30/20 19:45 Blood Pressure 113/58 L 12/30/20 19:31 Pulse Oximetry 96 12/30/20 19:45 MDM - Fever MDM Narrative Medical decision making narrative: Patient's abdomen is soft without significant pain or signs of surgical abdomen on serial exams. Lab and x-ray evaluations are reviewed and patient is felt to be a reasonable candidate for outpatient management. Patient was instructed as to limitations of x-ray and laboratory evaluation and encouraged to return to ED or primary physician for repeat exam in 12 hours if continued or worsening pain Lab Data Result diagrams: 12/30/20 13:29 12/30/20 13:29 Labs: Lab Results 12/30/20 12/30/20 12/30/20 Range/Units 13:29 13:29 13:29 WBC 9.4
== END 2020-12-30 21:24 | disposition home or self-care (01) ==
PROVIDERS: Emergency Medicine; Emergency Provider Emergency Medicine; PCP Physician Assistant
DX: N39.0 Urinary tract infection, site not specified (principal); R10.32 Left lower quadrant pain
CPT/HCPCS: 36415; 74177; 80048; 80076; 81001; 81025; 83605; 83690; 85025; 87040; 87070; 87077; 87086; 87088; 87186; 87491; 87591; 87808; 96361; 96365; 96375; 99284; J0131; J0696; J1885; J2270; J7030; Q9967

== ENCOUNTER 2021-01-05 05:33 | Inpatient (IN) | payer OTHER, SELFPAY ==
[2021-01-05] VITALS (14 sets, daily range): BP systolic 109–132; BP diastolic 49–110; PULSE 81–102; RESP 16–33; TEMP 36.4–39.6; O2SAT 93–100
--- NOTE | ~2021-01-05 | CT_ITS ---
EXAMINATION: CT abdomen pelvis w con DATE: 01/05/2021 07:20 INDICATION: Left lower quadrant abdominal pain. Vomiting. TECHNIQUE: Computed tomography (CT) of the abdomen and pelvis was performed with 100 mL Omnipaque 350 intravenous contrast. Automated exposure control and iterative reconstruction technique were employe d. The dose-length product was 517.13 mGy-cm. COMPARISON: CT abdomen and pelvis 12/30/2020 FINDINGS: The visualized portions of the lung bases demonstrate mild atelectasis. No pleural effusion . The heart size is normal. No pericardial effusion. The liver, gallbladder, spleen, pancreas, adrena l glands, and right kidney are normal. There are areas of hypoenhancement in left kidney, consistent with pyelonephritis. There is an 8 mm perihilar abscess in the kidney. There is urothelial hyperemia in the left kidney and ureter. There are no dilated loops of bowel. The appendix is normal. There are no pathologically enlarged lymph nodes. There is no free intraperitoneal fluid. There is mild thorac olumbar spondylosis. IMPRESSION: 1. Left-sided pyelonephritis with 8 mm perihilar renal abscess. Reviewed, dictated and finalized at location A.
--- NOTE | ~2021-01-05 | US_ITS ---
EXAMINATION: US venous doppler UE RT DATE: 01/12/2021 12:48 INDICATION: Right upper limb pain and erythema TECHNIQUE: Grayscale images without and with compression and Doppler images of the right upper extrem ity veins were obtained. COMPARISON: None. FINDINGS: The right internal jugular vein, subclavian vein, axillary vein, brachial vein, basilic vein, cephali c vein, radial vein, and ulnar vein are patent. IMPRESSION: 1. Patent bilateral upper extremity veins. No evidence of venous thrombosis. Reviewed, dictated and finalized at location A.
--- NOTE | ~2021-01-05 | CT_ITS ---
EXAMINATION: CT abdomen pelvis w con DATE: 01/06/2021 13:49 INDICATION: Renal abscess. Fever. TECHNIQUE: Computed tomography (CT) of the abdomen and pelvis was performed with 100 mm Omnipaque 350 intravenous contrast. Automated exposure control and iterative reconstruction technique were employe d. The dose-length product was 649.35 mGy-cm. COMPARISON: CT abdomen and pelvis 01/05/2021 FINDINGS: The visualized portions of the lung bases demonstrate mild atelectasis. There are trace ple ural effusions. The heart size is normal. No pericardial effusion. The liver, gallbladder, spleen, pa ncreas, adrenal glands, and right kidney are normal. There are areas of hypoenhancement in left kidne y with mildly worsened distribution, consistent with pyelonephritis. A 2.2 x 1.9 cm hypoattenuated ma ss in the perihilar region is consistent with phlegmon versus early abscess, but there is no signific ant drainable component. There are no dilated loops of bowel. The appendix is normal. There is trace pelvic ascites. There are no pathologically enlarged lymph nodes. There is mild thoracal lumbar spond ylosis. IMPRESSION: 1. Left-sided pyelonephritis with mildly worsened distribution, worst in the perihilar region where t here is a 2.2 x 1.9 cm phlegmon versus early abscess. No significant drainable fluid component. Reviewed, dictated and finalized at location A. IMPRESSION: 1. Left-sided pyelonephritis with mildly worsened distribution, worst in the pe rihilar region where there is a 2.2 x 1.9 cm phlegmon versus early abscess. No significant drainable fluid component.
--- NOTE | ~2021-01-05 | CT_ITS ---
EXAMINATION: CT abdomen pelvis w con INDICATION: Renal abscess TECHNIQUE: Computed tomographic images of the abdomen and pelvis were obtained after the administrati on of 100 cc of Omnipaque 350 intravenous contrast. The dose-length product (DLP) was 537.30 mGy-cm. Automated exposure control and iterative reconstruction technique were employed. COMPARISON: 01/06/2021 FINDINGS: The lung bases are clear. The heart size is normal. A 10 mm enhancing lesion liver segment VIII is consistent with hemangioma versus focal nodular hyperplasia. The spleen, pancreas, gallbladde r, and adrenal glands are normal. The right kidney is unremarkable. There is an approximately 1.8 x 1 .7 cm abscess in the left kidney lower pole which has slightly decreased in size. Pyelonephritis in t he upper pole of the left kidney and surrounding the abscess has also slightly improved. No pathologi harsh enlarged abdominal or pelvic lymph nodes are identified. There is no free intraperitoneal gas o r evidence of bowel obstruction. There is mild thoracolumbar spondylosis. IMPRESSION: 1. Left pyelonephritis and left kidney abscess both with slight interval improvement. Reviewed, dictated and finalized at location A. IMPRESSION: 1. Left pyelonephritis and left kidney abscess both with slight interval improv ement.
[2021-01-05] MEDS: SODIUM CHLORIDE 0.9% IV 1,000 ML 999 ML IV CONT ×2 (06:10→07:03)
[2021-01-05] MEDS: ERTAPENEM 1 GM/NS 50 ML 1 GM/50 ML BAG IVPB (06:10)
--- NOTE | 2021-01-05 06:26 | ED.ABDPAIN ---
HPI - Abdominal Pain General Chief Complaint: Abdominal Pain Stated Complaint: abd pain Time Seen by Provider: 01/05/21 05:53 Source: patient History of Present Illness HPI narrative: Patient presents with left flank pain and back pain. Patient ports she seen about a week ago diagnosed with a UTI for which she has been taking antibiotics however symptoms are worsening. Her pain is achy, constant, worse with moving around, radiates to her back. She also reports fevers nausea and vomiting reports continued pain with urination increased urinary frequency. Related Data Allergies Allergy/AdvReac Type Severity Reaction Status Date / Time No Known Allergies Allergy Verified 01/05/21 05:59 Review of Systems Review of Systems: CONSTITUTIONAL: Denies fever, chills, or sweats. EYES: Denies visual changes, redness, or discharge. ENT: Denies rhinorrhea, congestion, sore throat, or otalgia. CARDIOVASCULAR: Denies chest pain, palpitations, or edema. RESPIRATORY: Denies cough or dyspnea. GASTROINTESTINAL: Reports abdominal pain nausea and vomiting GENITOURINARY: Denies dysuria or hematuria. SKIN: Denies rash or itching. MUSCULOSKELETAL: Denies joint pain, or myalgia. NEUROLOGIC: Denies headache, numbness, dizziness, or weakness. PSYCHIATRIC: Denies anxiety or depression. All systems reviewed & are unremarkable except as noted in HPI and below PMFSH Past Medical History Medical History Patient denies significant medical history Social History Social History Smoking status: Never smoker Exam Narrative: GENERAL: Well-appearing, well-nourished, and in no acute distress. HEAD: Normocephalic, atraumatic. EYES: PERRLA and EOMI. ENT: Nares clear, no rhinorrhea or epistaxis. Mucous membranes moist. NECK: Supple. No masses. No JVD ABDOMEN: Moderate tenderness on the left abdomen soft, nondistended, normal active bowel sounds. BACK: CVA tenderness on the left EXTREMITIES: Normal range of motion. No edema. SKIN: Warm, dry, no rash. NEURO: No focal deficits. Alert and oriented x3. PSYCH: Normal mood and affect. Course Vital Signs Vital signs: Vital Signs Temperature 36.6 C 01/05/21 05:50 Pulse Rate 97 01/05/21 05:50 Respiratory Rate 18 01/05/21 05:50 Blood Pressure 132/110 H 01/05/21 05:50 Pulse Oximetry 97 01/05/21 05:50 Temperature 36.6 C 01/05/21 05:50 Pulse Rate 97 01/05/21 05:50 Respiratory Rate 18 01/05/21 05:50 Blood Pressure 132/110 H 01/05/21 05:50 Pulse Oximetry 97 01/05/21 05:50 MDM - Abdominal Pain MDM Narrative Medical decision making narrative: Patient presenting for worsening abdominal pain. Patient overall looks clinically well vital signs are reassuring labs notable for leukocytosis imaging showing small perihilar abscess. Prior culture result reviewed and patient is resistant to oral therapies that would treat pyelonephritis. Given culture results and imaging findings patient was admitted to the hospitalist team for IV antibiotics. Urology also consulted recommend trial of IV antibiotics likely reimage as abscess appears small may respond to antibiotics alone. Lab Data Result diagrams: 01/05/21 06:18 01/05/21 06:18 Labs: Lab Results 01/05/21 01/05/21 01/05/21 Range/Units 06:18 06:18 06:18 WBC 17.2 H (4.5-10.0) K/mm3 RBC 4.69 (4.2-5.4) M/mm3 Hgb 13.9 (12.0-15.0) g/dL Hct 40.7 (37.0-47.0) % MCV 86.8 (80-100) fl MCH 29.6 (26-34) pg MCHC 34.2 (32-36) g/dl RDW 12.2 (11.5-14.5) % Plt Count 288 (150-375) k/mm3 MPV 9.6 (7.4-10.4) fl Immature Gran % (Auto) Not Reportable Neut % (Auto) Not Reportable Lymph % (Auto) Not Reportable [place] % (Auto) Not Reportable Eos % (Auto) Not Reportable Baso % (Auto) Not Reportable Lymph # (Auto) Not Reportable [place] # (
[2021-01-05 06:31] LABS: Hematocrit 40.7 % (37.0-47.0); Hemoglobin 13.9 g/dL (12.0-15.0); Mean Corpuscular HGB Conc 34.2 g/dl (32-36); Mean Corpuscular Hemoglobin 29.6 pg (26-34); Mean Corpuscular Volume 86.8 fl (80-100); Mean Platelet Volume 9.6 fl (7.4-10.4); Platelet Count Result 288 k/mm3 (150-375); Red Blood Count 4.69 M/mm3 (4.2-5.4); Red Cell Distribution Width 12.2 % (11.5-14.5); White Blood Count 17.2 K/mm3 (4.5-10.0)
[2021-01-05] MEDS: ONDANSETRON INJ 4 MG/2 ML VIAL IV PUSH (06:33)
[2021-01-05 06:48] LABS: Alanine Aminotransferase 39 U/L (4-35); Albumin Level 4.3 g/dL (3.5-5.1); Alkaline Phosphatase 104 U/L (38-126); Anion Gap 9 mmol/L (8-16); Aspartate Amino Transferase 60 U/L (14-36); Bilirubin,Total 0.8 mg/dL (0.2-1.3); Blood Urea Nitrogen 11 mg/dL (7-17); Calcium 9.1 mg/dL (8.4-10.2); Carbon Dioxide 24 mmol/L (22-30); Chloride 101 mmol/L (98-107); Estimated CRCL calculation 97 ml/min; Estimated Glomerular Filt Rate > 60; Glucose 337 mg/dL (65-110); Lipase 95 U/L (23-300); Potassium 3.9 mmol/L (3.4-5.0); Sodium 134 mmol/L (137-145)
[2021-01-05 06:51] LABS: Add Urine Microscopic? YES; Appearance Urine Clear (Clear); Bilirubin Urine Negative (Negative); Blood Urine Negative (Negative); Color Urine Yellow (Yellow); Glucose Urine UA 3+ mg/dL (Negative); Ketones Urine Negative (Negative); Leukocyte Esterase Ur 1+ LEU/UL (Negative); Nitrate Urine Positive (Negative); Protein Urine 1+ mg/dL (Negative); Specific Grav Ur 1.021 (1.001-1.035); Squamous Epithelial Cell Urine Few /hpf (Few); Urobilinogen Urine Negative mg/dL (<2.0); WBC Urine 51-75 /hpf
[2021-01-05 06:59] LABS: Lactic Acid Reflex 1.3 mmol/L (0.7-2.1)
[2021-01-05 08:21] LABS: Atypical Lymphocytes Present; Band Neutrophils Percent 4 % (0-6); Lymphocytes Absolute Manual 0.34 K/mm3 (1.1-4.5); Monocytes Percent Manual 7 % (3-9); Neutrophils Absolute Manual 15.65 K/mm3 (1.7-7.2); Neutrophils Percent Manual 87 % (46-73); Platelet Estimate Adequate (Adequate); Total Cells Counted 100
--- NOTE | 2021-01-05 08:47 | WPDURCON ---
Assessment and Plan Assessment and plan (1) Pyelonephritis: Code(s): N12 - Tubulo-interstitial nephritis, not specified as acute or chronic Status: Acute Assessment and Plan: Continue culture sensitive Invanz, monitor WBC and fevers. (2) Abscess, renal/perirenal: Code(s): N15.1 - Renal and perinephric abscess Status: Acute Assessment and Plan: Dr. Brandt and I have discussed her imaging and we will plan to hold off on draining the abscess at this time as it is likely to small, continuing culture appropriate antibiotics and monitoring her WBC and fever for now will be in her best interest. If she worsens we can consider draining it, however we will just plan to re-image her in 1-2 days to see if the abscess is decreasing. Urology Consult Note HPI Date Seen: 01/05/21 Requesting Physician: Columba Mireles MD Primary Care Provider: Maylin Benavides, PA Consult Narrative Narrative: Maylin Lau is a 55 year old female who initially presented to the ER on 12/30/2020 for LLQ pain and fever, she was diagnosed with left pyelonephritis via CT scan which showed mild urothelial enhancement of the urters. She was discharged home with Bactrim. Her culture from 12/30/2020 grew E-Coli and was resistant to Bactrim. She is now back in the ER this morning with c/o worsening symptoms nausea, vomiting, LLQ pain, flank pain, fever, chikks and frequency of urination. Her repeat CT scan shows left pyelonephritis with an 8mm perihilar renal abscess. She was re-cultured for blood and urine and was started on culture sensitive Invanz. Her WBC is 17.2, creatinine is 0.50 and UA suggests continued infection. She is afebrile at this time. Review of Systems Cardiovascular: Cardiovascular: Denies chest pain Respiratory: Respiratory: Reports no additional respiratory complaints Gastrointestinal: Gastrointestinal: Reports abdominal pain, Reports nausea and Reports vomiting Genitourinary: Genitourinary: Denies hematuria, Reports nocturia, Reports dysuria, Reports flank pain, Denies urinary incontinence and Reports urinary urgency PMF Past Medical History Medical History Patient denies significant medical history Social History Social History Smoking status: Never smoker Second hand tobacco smoke exposure: No Alcohol intake: never Substance use: never Spiritual care concerns: No Meds Home Medications and Allergies Home Medications Medication Instructions Recorded Confirmed Type ibuprofen [IBU] 600 mg PO Q6H PRN #20 tablet 12/30/20 Rx sulfamethoxazole-trimethoprim 1 tablet PO Q12H #14 tablet 12/30/20 Rx [Bactrim DS] Allergies Allergy/AdvReac Type Severity Reaction Status Date / Time No Known Allergies Allergy Verified 01/05/21 05:59 Vital Signs Vital Signs - 24 hr 01/05/21 05:50 Temperature 97.8 F Pulse Rate 97 Respiratory Rate 18 Blood Pressure 132/110 H Pulse Oximetry 97 Exam Resp: Effort & Inspection: normal respiratory effort Cardio: Rate: regular rate GI: GI Palp: Yes Soft to palpation and Yes Tenderness to palpation present (GI) (LLQ) : General: Yes CVA tenderness on the left Extrem: General: no edema Results Labs CBC & Chem 7: 01/05/21 06:18 01/05/21 06:18 Labs: Short CBC 01/05/21 Range/Units 06:18 WBC 17.2 H (4.5-10.0) K/mm3 Hgb 13.9 (12.0-15.0) g/dL Hct 40.7 (37.0-47.0) % Plt Count 288 (150-375) k/mm3 BMP 01/05/21 06:18 Sodium 134 L Potassium 3.9 Chloride 101 Carbon Dioxide 24 BUN 11 Creatinine 0.50 L Glucose 337 H Calcium 9.1 Liver Function 01/05/21 Range/Units 06:18 Total Bilirubin 0.8 (0.2-1.3) mg/dL AST 60 H (14-36) U/L ALT 39 H (4-35) U/L Alkaline Phosphatase 104 (38-126) U/L Albumin 4.3 (3.5-5.1) g/dL Urine
[2021-01-05] MEDS: HYDROmorphone HCL INJ (*CRX) 1 MG/ML SYR 0.5 MG IV PUSH (09:14)
--- NOTE | 2021-01-05 09:52 | PM.IMHP ---
H&P: HPI History of Present Illness Date/Time: 01/05/21 11:50 55-year-old female with diabetes and morbid obesity and hyperlipidemia presents to the emergency room for the 2nd time this week with complaint of abdominal pain and left-sided flank pain. She was recently seen in the ER and discharged home with UTI on oral antibiotics. Today when she returns it is revealed that she has is be coli that was resistant to antibiotic with which she was discharged. History per patient is that she came to the ER with abdominal pain and sweating chills. She was given antibiotics discharged home upon returning home she began continued to feel unwell reporting worsening chills and diaphoresis and felt that her hands and feet were painful along with headache. Patient states that she had pain from her left shoulder to her left hip down the left side of her back. Pain began to intensify and was unbearable therefore she sought medical attention. Associated symptom of vomiting x2, generalized weakness and fatigue, decreased appetite. She denies any arthralgias shortness of breath palpitations sensory or motor deficits chest pain or other complaints Imaging in the ER she demonstrates small abscess collection within the kidney. Admission for further evaluation and workup recommended. Chief Complaint: Flank pain Review of Systems Review of Systems: All systems reviewed & are unremarkable except as noted in HPI and below PMFSH Past Medical History Medical History (Updated 01/05/21 @ 19:59 by Columba Mireles MD) History of miscarriage Family History Family History (Updated 01/05/21 @ 19:59 by Columba Mireles MD) Other Cancer Social History Social History Smoking status: Never smoker Second hand tobacco smoke exposure: No Alcohol intake: never Substance use: never Spiritual care concerns: No Meds Home Medications and Allergies Home Medications Medication Instructions Recorded Confirmed Type glimepiride 4 mg PO BID 01/05/21 01/05/21 History insulin detemir U-100 [Levemir 15 unit SUBCUT HS 01/05/21 01/05/21 History FlexTouch U-100 Insuln] metformin 1,000 mg PO BID 01/05/21 01/05/21 History simvastatin 20 mg PO DAILY 01/05/21 01/05/21 History sitagliptin [Januvia] 100 mg PO DAILY 01/05/21 01/05/21 History Allergies Allergy/AdvReac Type Severity Reaction Status Date / Time No Known Allergies Allergy Verified 01/05/21 10:42 Vital Signs Vital Signs - 24 hr 01/05/21 05:50 01/05/21 09:45 01/05/21 10:17 Temperature 97.8 F 99.0 F 99.1 F Pulse Rate 97 87 89 Respiratory Rate 18 16 33 H Blood Pressure 132/110 H 124/54 L 109/72 Pulse Oximetry 97 97 100 01/05/21 11:35 01/05/21 11:37 01/05/21 12:00 Temperature 103.1 F H 103.1 F H 103.2 F H Pulse Rate 102 H Respiratory Rate 27 H Blood Pressure 124/51 L Pulse Oximetry 96 01/05/21 13:00 01/05/21 14:22 01/05/21 14:26 Temperature 103 F H 99.1 F 99.1 F Pulse Rate Respiratory Rate Blood Pressure Pulse Oximetry 01/05/21 15:20 01/05/21 16:09 01/05/21 17:19 Temperature 98.8 F 100.9 F H Pulse Rate 94 Respiratory Rate 19 Blood Pressure 109/49 L Pulse Oximetry 93 96 01/05/21 19:40 Temperature 97.6 F Pulse Rate 81 Respiratory Rate 16 Blood Pressure 112/50 L Pulse Oximetry 98 Exam Const: General: no acute distress and uncomfortable HENMT: General nose exam: Normal nares present and no epistaxis Mouth: Yes moist mucous membranes Eyes: General: appearance normal, both eyes and all related structures Sclera: sclerae normal EOM: EOMs intact bilaterally Neck: Neck: supple and no JVD Lymphatic: lymphadenopathy not noted Resp: Effort & Inspection: normal respiratory effort Auscultation: clear to auscultation bilaterally, no crackles, no rales and no rhonchi Cardio: Rate: regular rate Rhythm: regular rhythm GI: Inspection: non-distended G
[2021-01-05] MEDS: SODIUM CHLORIDE 0.9% IV 1,000 ML 125 ML IV CONT ×2 (10:18→18:04)
--- NOTE | 2021-01-05 10:21 | ADMGEN ---
This patient, Maylin Lau, was admitted to Medical Room 341-01. Patient/family oriented to hospital policies and general routines including ID bracelet, bed and alarms, visiting hours, pain management, procedures, bathroom and other care routines, personal items, smoking policy, room service/diet, and visiting hours. Information on how to activate the Rapid Response Team has been discussed. Patient/Family are encouraged to report perceived risks to care and to ask questions if they do not understand what they are told or what they should do.
--- NOTE | 2021-01-05 11:30 | PC.NURSE ---
[employer] used for admission questions/assessment. [employer] #[id number], Hiral
[2021-01-05] MEDS: MORPHINE SULFATE (*CRX) 2 MG/ML INJ IV PUSH (11:33)
[2021-01-05] MEDS: ACETAMINOPHEN 325 MG TABLET 650 MG PO (11:37)
[2021-01-05 11:52] LABS: Glucose Point of Care 261 mg/dl (65-105)
--- NOTE | 2021-01-05 12:13 | PC.NURSE ---
Spoke to Dr. Mireles regarding order clarification. Per Dr. Mireles, she will call and speak to pharmacist.
[2021-01-05 12:16] LABS: Glucose Point of Care 248 mg/dl (65-105)
[2021-01-05 12:59] LABS: Hemoglobin A1C 9.3 % (<5.7)
--- NOTE | 2021-01-05 13:16 | PM.DS ---
DS: Summary Time Spent with Patient Time attestation: Total time spent providing and/or coordinating discharge services: DS: Data Data Completed and Pending Labs on day of discharge: Labs from last 24 hours 01/05/21 01/05/21 01/05/21 12:02 11:10 10:28 WBC RBC Hgb Hct MCV MCH MCHC RDW Plt Count MPV Immature Gran % (Auto) Neut % (Auto) Lymph % (Auto) Motley % (Auto) Eos % (Auto) Baso % (Auto) Lymph # (Auto) Motley # (Auto) Eos # (Auto) Baso # (Auto) Abs Immat Gran (auto) Absolute Neuts (auto) Absolute Nucleated RBC Total Counted Neutrophils % (Manual) Band Neutrophils % Lymphocytes % (Manual) Monocytes % (Manual) Nucleated RBC % Abs Neuts (Manual) Abs Lymphs (Manual) Abs Monocytes (Manual) Atypical Lymphocytes Platelet Estimate Sodium Potassium Chloride Carbon Dioxide Anion Gap BUN Creatinine Estim Creat Clear Calc Estimated GFR Glucose POC Capillary Glucose 248 H 261 H Hemoglobin A1c 9.3 H Lactic Acid Calcium Total Bilirubin AST ALT Alkaline Phosphatase Total Protein Albumin Lipase Urine Color Urine Appearance Urine pH Ur Specific [place] Urine Protein Urine Glucose (UA) Urine Ketones Ur Blood (Man) Urine Nitrate Urine Bilirubin Urine Urobilinogen Leukocyte Esterase Rfl Urine RBC Urine WBC Ur Squamous Epith Cells 01/05/21 01/05/21 01/05/21 06:18 06:18 06:18 WBC 17.2 H RBC 4.69 Hgb 13.9 Hct 40.7 MCV 86.8 MCH 29.6 MCHC 34.2 RDW 12.2 Plt Count 288 MPV 9.6 Immature Gran % (Auto) Not Reportable Neut % (Auto) Not Reportable Lymph % (Auto) Not Reportable Motley % (Auto) Not Reportable Eos % (Auto) Not Reportable Baso % (Auto) Not Reportable Lymph # (Auto) Not Reportable Motley # (Auto) Not Reportable Eos # (Auto) Not Reportable Baso # (Auto) Not Reportable Abs Immat Gran (auto) Not Reportable Absolute Neuts (auto) Not Reportable Absolute Nucleated RBC Not Reportable Total Counted 100 Neutrophils % (Manual) 87 H Band Neutrophils % 4 Lymphocytes % (Manual) 2.0 L Monocytes % (Manual) 7 Nucleated RBC % Not Reportable Abs Neuts (Manual) 15.65 H Abs Lymphs (Manual) 0.34 L Abs Monocytes (Manual) 1.20 H Atypical Lymphocytes Present Platelet Estimate Adequate Sodium 134 L Potassium 3.9 Chloride 101 Carbon Dioxide 24 Anion Gap 9 BUN 11 Creatinine 0.50 L Estim Creat Clear Calc 97 Estimated GFR > 60 Glucose 337 H POC Capillary Glucose Hemoglobin A1c Lactic Acid 1.3 Calcium 9.1 Total Bilirubin 0.8 AST 60 H ALT 39 H Alkaline Phosphatase 104 Total Protein 8.0 Albumin 4.3 Lipase 95 Urine Color Urine Appearance Urine pH Ur Specific [place] Urine Protein Urine Glucose (UA) Urine Ketones Ur Blood (Man) Urine Nitrate Urine Bilirubin Urine Urobilinogen Leukocyte Esterase Rfl Urine RBC Urine WBC Ur Squamous Epith Cells 01/05/21 06:18 WBC RBC Hgb Hct MCV MCH MCHC RDW Plt Count MPV Immature Gran % (Auto) Neut % (Auto) Lymph % (Auto) Motley % (Auto) Eos % (Auto) Baso % (Auto) Lymph # (Auto) Motley # (Auto) Eos # (Auto) Baso # (Auto) Abs Immat Gran (auto) Absolute Neuts (auto) Absolute Nucleated RBC Total Counted Neutrophils % (Manual) Band Neutrophils % Lymphocytes % (Manual) Monocytes % (Manual) Nucleated RBC % Abs Neuts (Manual) Abs Lymphs (Manual) Abs Monocytes (Manual) Atypical Lymphocytes Platelet Estimate Sodium Potassium Chloride Carbon Dioxide Anion Gap BUN Creatinine Estim Creat Clear Calc Estimated GFR Glucose POC Capillary Glucose Hemoglobin A1c Lactic Acid Calcium Total Bilirubin
[2021-01-05 14:11] LABS: Glucose Point of Care 268 mg/dl (65-105)
[2021-01-05] MEDS: INSULIN ASPART (*BKC) 100 UNITS/ML SUB-Q ×2 (14:14→17:03)
[2021-01-05] MEDS: IBUPROFEN 600 MG TABLET PO (14:22)
[2021-01-05 17:00] LABS: Glucose Point of Care 234 mg/dl (65-105)
[2021-01-05] MEDS: FAMOTIDINE 10 MG TABLET PO (20:45)
[2021-01-05] MEDS: INSULIN GLARGINE (*BKC) 100 UNITS/ML 10 UNITS SUB-Q (20:47)
[2021-01-05 21:11] LABS: Glucose Point of Care 234 mg/dl (65-105)
[2021-01-06] VITALS: BP 117/52; PULSE 93; RESP 16; TEMP 36.6; O2SAT 96
[2021-01-06] MEDS: oxyCODONE/ACETAMINOPHEN (*CRX) 5-325 MG TABLET 2 TABLET PO (01:33)
[2021-01-06 04:54] VITALS: BP 116/55; PULSE 86; RESP 17; TEMP 36.6; O2SAT 94
[2021-01-06] MEDS: ERTAPENEM 1 GM/NS 50 ML 1 GM/50 ML BAG IVPB (05:21)
[2021-01-06 06:10] LABS: Basophils Percent Auto 0.3 % (0.2-1.2); Hematocrit 33.6 % (37.0-47.0); Hemoglobin 11.2 g/dL (12.0-15.0); Immature Granulocyte Absolute 0.07 K/mm3 (0.00-0.031); Immature Granulocyte Percent A 0.7 % (0-0.5); Lymphocytes Absolute Auto 1.12 K/mm3 (0.9-3.2); Lymphocytes Percent Auto 11.5 % (18.3-44.2); Mean Corpuscular HGB Conc 33.3 g/dl (32-36); Mean Corpuscular Hemoglobin 29.9 pg (26-34); Mean Corpuscular Volume 89.6 fl (80-100); Mean Platelet Volume 9.5 fl (7.4-10.4); Monocytes Absolute Auto 0.8 K/mm3 (0.1-0.6); Monocytes Percent Auto 7.9 % (2.6-8.5); Neutrophils Absolute Auto 7.8 K/mm3 (1.3-6.7); Neutrophils Percent Auto 79.6 % (45.5-73.1); Platelet Count Result 209 k/mm3 (150-375); Red Blood Count 3.75 M/mm3 (4.2-5.4); Red Cell Distribution Width 12.6 % (11.5-14.5); White Blood Count 9.8 K/mm3 (4.5-10.0)
[2021-01-06 06:28] LABS: Alanine Aminotransferase 33 U/L (4-35); Albumin Level 3.3 g/dL (3.5-5.1); Alkaline Phosphatase 73 U/L (38-126); Anion Gap 5 mmol/L (8-16); Aspartate Amino Transferase 26 U/L (14-36); Bilirubin,Total 0.6 mg/dL (0.2-1.3); Blood Urea Nitrogen 6 mg/dL (7-17); Carbon Dioxide 24 mmol/L (22-30); Chloride 103 mmol/L (98-107); Cholesterol 134 mg/dL (0-200); Estimated CRCL calculation 97 ml/min; Estimated Glomerular Filt Rate > 60; Glucose 233 mg/dL (65-110); HDL Direct 29 mg/dL; Magnesium 1.8 mg/dL (1.6-2.3); Potassium 3.7 mmol/L (3.4-5.0); Sodium 132 mmol/L (137-145); Triglycerides 114 mg/dL (<150)
[2021-01-06 06:30] LABS: LDL Cholesterol Direct 66 mg/dL
[2021-01-06 06:33] LABS: CRP 21.4 mg/dL (<1.0)
[2021-01-06 07:36] LABS: Glucose Point of Care 193 mg/dl (65-105)
[2021-01-06] MEDS: ENOXAPARIN 40 MG/0.4 ML SYRINGE SUB-Q (08:18)
[2021-01-06] MEDS: FAMOTIDINE 10 MG TABLET PO ×2 (08:19→20:35)
[2021-01-06] MEDS: SIMVASTATIN 20 MG TABLET PO (08:19)
[2021-01-06] MEDS: INSULIN GLARGINE (*BKC) 100 UNITS/ML 10 UNITS SUB-Q ×2 (08:40→17:49)
--- NOTE | 2021-01-06 09:09 | PCPTNOTE ---
Attempted to see patient this AM for PT evaluation, not feeling well will try back later.
--- NOTE | 2021-01-06 09:31 | PCOTNOTE ---
Attempted OT evaluation, patient reports feeling to bad to participate with OT at this time, will follow and attempt at later time.
[2021-01-06] MEDS: MORPHINE SULFATE (*CRX) 2 MG/ML INJ IV PUSH (11:23)
[2021-01-06] MEDS: INSULIN ASPART (*BKC) 100 UNITS/ML SUB-Q ×2 (12:17→17:50)
[2021-01-06 12:25] LABS: Glucose Point of Care 204 mg/dl (65-105)
[2021-01-06 12:30] VITALS: BP 126/61; PULSE 105; RESP 18; TEMP 39.5; O2SAT 95
[2021-01-06] MEDS: ACETAMINOPHEN 325 MG TABLET 650 MG PO (12:51)
--- NOTE | 2021-01-06 13:16 | WPDUROPN2 ---
Progress Note: A&P Assessment and Plan (1) Pyelonephritis: Code(s): N12 - Tubulo-interstitial nephritis, not specified as acute or chronic Status: Acute Assessment and Plan: Continue IV antibiotics, blood cultures growing E-Coli, urine culture still pending. Polo was culture sensitive a week ago and appears to be helping, as her WBC is improved, but she is still febrile of 103. (2) Abscess, renal/perirenal: Code(s): N15.1 - Renal and perinephric abscess Status: Acute Assessment and Plan: Will plan to re-scan her to re-evaluate the abscess. (3) Leukocytosis: Qualifiers: Leukocytosis type: unspecified Qualified Code(s): D72.829 - Elevated white blood cell count, unspecified Code(s): D72.829 - Elevated white blood cell count, unspecified Status: Acute Assessment and Plan: Improved. Subjective Subjective Date/Time Seen: 01/06/21 13:16 Patient is slightly improved today as far as her WBC and pain. She continues to run fevers of 103 intermittently when Tylenol wares off. She is also tachycardic. She is sitting up in bed today and seems much more comfortable. Review of Systems Cardiovascular: Cardiovascular: Denies chest pain Respiratory: Respiratory: Reports no additional respiratory complaints Gastrointestinal: Gastrointestinal: Reports abdominal pain, Denies nausea and Denies vomiting Genitourinary: Genitourinary: Denies hematuria, Denies dysuria and Reports flank pain Exam Resp: Effort & Inspection: normal respiratory effort Cardio: Rate: tachycardic GI: GI Palp: Yes Soft to palpation and Yes Tenderness to palpation present (GI) (LLQ) : General: Yes CVA tenderness on the left Extrem: General: no edema Objective Data Vital Signs Vital Signs: Vital Signs - 24 hr 01/05/21 14:22 01/05/21 14:26 01/05/21 15:20 Temperature 99.1 F 99.1 F 98.8 F Pulse Rate Respiratory Rate Blood Pressure Pulse Oximetry 01/05/21 16:09 01/05/21 17:19 01/05/21 19:40 Temperature 100.9 F H 97.6 F Pulse Rate 94 81 Respiratory Rate 19 16 Blood Pressure 109/49 L 112/50 L Pulse Oximetry 93 96 98 01/05/21 20:00 01/06/21 00:00 01/06/21 04:54 Temperature 98 F 97.8 F Pulse Rate 81 93 86 Respiratory Rate 16 16 17 Blood Pressure 117/52 L 116/55 L Pulse Oximetry 98 96 94 01/06/21 12:30 Temperature 103.1 F H Pulse Rate 105 H Respiratory Rate 18 Blood Pressure 126/61 Pulse Oximetry 95 Intake/Output Intake/Output: Intake & Output 01/03/21 01/04/21 01/05/21 01/06/21 23:59 23:59 23:59 23:59 Intake Total 4870 1160 Output Total 800 1200 Balance 4070 -40 Meds/Results Medications: Active Medications Generic Name Dose Route Start Last Admin Trade Name Freq PRN Reason Stop Dose Admin Acetaminophen 650 mg 01/05/21 11:00 01/06/21 12:51 Acetaminophen 325 Mg Tablet PO 650 mg Q6H PRN Administration Mild Pain (1-3) or Fever Dextrose 12.5 gm 01/05/21 11:01 Dextrose 50% 25 Gm/50 Ml Syringe IV PUSH PRN PRN Hypoglycemia Protocol Enoxaparin Sodium 40 mg 01/06/21 09:00 01/06/21 08:18 Enoxaparin 40 Mg/0.4 Ml Syringe SUB-Q 40 mg DAILY MANASA Administration Famotidine 10 mg 01/05/21 21:00 01/06/21 08:19 Famotidine 10 Mg Tablet PO 10 mg Q12HR MANASA Administration Glucagon 1 mg 01/05/21 11:01 Glucagon For Inj 1 Mg Vial IM PRN PRN Hypoglycemia Protocol Glucose 15 gm 01/05/21 11:01 Glucose Oral Gel 15 Gm Of Glucse In 37.5 Gm Tube PO PRN PRN Hypoglycemia Protocol Hydromorphone HCl 0.5 mg 01/05/21 07:56 01/05/21 09:14 Hydromorphone Hcl Inj (*Crx) 1 Mg/Ml Syr IV PUSH 0.5 mg Q4H PRN Administration Pain Rated 7-10 Ertapenem 1 gm in 50 mls @ 100 mls/hr 01/06/21 06:00 01/06/21 06:08 Invanz 1 Gm/Ns 50 Ml IVPB Infused Q24H MANASA Infusion Dextrose 1,000 mls @ 100 mls/hr 01/05/21 11:01 Dextrose 5%
[2021-01-06 14:38] VITALS: TEMP 37.8
[2021-01-06 15:48] VITALS: BP 110/48; PULSE 88; RESP 16; TEMP 37.1; O2SAT 95
--- NOTE | 2021-01-06 16:08 | PM.IMPN ---
Progress Note: A&P Assessment and Plan (1) Diabetes mellitus: Code(s): E11.9 - Type 2 diabetes mellitus without complications Status: Acute (2) Abscess, renal/perirenal: Code(s): N15.1 - Renal and perinephric abscess Status: Acute (3) Obesity: Code(s): E66.9 - Obesity, unspecified Status: Acute (4) Pyelonephritis: Code(s): N12 - Tubulo-interstitial nephritis, not specified as acute or chronic Status: Acute (5) Hyperlipidemia: Code(s): E78.5 - Hyperlipidemia, unspecified Status: Acute (6) Leukocytosis: Qualifiers: Leukocytosis type: unspecified Qualified Code(s): D72.829 - Elevated white blood cell count, unspecified Code(s): D72.829 - Elevated white blood cell count, unspecified Status: Acute Additional Plan Acute pyelonephritis Sepsis UTI secondary to ESBL E coli Hyperglycemia with history of diabetes Admit to inpatient Ertapenem 1 g q.day Tylenol and Advil p.r.n. for fever Cooling measures with ice packs to axilla and inguinal areas Zofran Clear liquid diet advance as tolerated to Diabetic diet Insulin sliding scale Lantus 10 units q.h.s. Normal saline Pain medication regimen p.r.n. PT OT consult Urology consult in the ER and recommends conservative measures with IV antibiotic therapy at this time. Hemoglobin A1c and lipid panel ordered to assess chronic diseases VTEP heparin SCDs Anticipated length of stay greater than 48 hours should be admitted as inpatient High risk for decompensation high suspicion for Gram-negative bacteremia 01/06/21 WBCs down trending with ertapenem Continues to have intermittent fevers Continue supportive care Blood glucose Near goal Patient 1.5 L fluid balance IV fluids slow to 75 cc/hour Urology following recommendations appreciated Subjective Date/time seen: 01/06/21 12:08 Patient reports ongoing pain she is advised that she can ask for IV morphine if her 2 tablets of Percocet are not sufficient to help with the pain. Review medical records shows that she has been afebrile far most of the night however this afternoon she is with fever again. Exam Narrative: GEN: NAD, AAOx3, cooperative, obese HEENT: NCAT, MMM, EOMI Neck: no JVD Heart: S1S2 RRR Lungs: CTA B/l Abd: soft, mild tender to palpation, ND, bowel sounds normoactive Ext: moves all, no cyanosis, no clubbing, no edema Neuro: No focal neurological deficits, cranial nerves intact Psych: Mood and affect congruent, patient is anxious about her health Objective Data Vital Signs Vital Signs: Vital Signs - 24 hr 01/05/21 16:09 01/05/21 17:19 01/05/21 19:40 Temperature 100.9 F H 97.6 F Pulse Rate 94 81 Respiratory Rate 19 16 Blood Pressure 109/49 L 112/50 L Pulse Oximetry 93 96 98 01/05/21 20:00 01/06/21 00:00 01/06/21 04:54 Temperature 98 F 97.8 F Pulse Rate 81 93 86 Respiratory Rate 16 16 17 Blood Pressure 117/52 L 116/55 L Pulse Oximetry 98 96 94 01/06/21 12:30 01/06/21 14:38 01/06/21 15:48 Temperature 103.1 F H 100.1 F H 98.8 F Pulse Rate 105 H 88 Respiratory Rate 18 16 Blood Pressure 126/61 110/48 L Pulse Oximetry 95 95 Intake/Output Intake/Output: Intake & Output 01/03/21 01/04/21 01/05/21 01/06/21 23:59 23:59 23:59 23:59 Intake Total 4870 1160 Output Total 800 1200 Balance 4070 -40 Meds/Results Medications: Active Medications Generic Name Dose Route Start Last Admin Trade Name Freq PRN Reason Stop Dose Admin Acetaminophen 650 mg 01/05/21 11:00 01/06/21 12:51 Acetaminophen 325 Mg Tablet PO 650 mg Q6H PRN Administration Mild Pain (1-3) or Fever Dextrose 12.5 gm 01/05/21 11:01 Dextrose 50% 25 Gm/50 Ml Syringe IV PUSH PRN PRN Hypoglycemia Protocol Enoxaparin Sodium 40 mg 01/06/21 09:00 01/06/21 08:18 Enoxaparin 40 Mg/0.4 Ml Syringe SUB-Q 40 mg DAILY MANASA Administration Famotidine 10 mg 01/05/21 21:00
[2021-01-06 17:35] LABS: Glucose Point of Care 260 mg/dl (65-105)
[2021-01-06] MEDS: oxyCODONE/ACETAMINOPHEN (*CRX) 5-325 MG TABLET 1 TABLET PO (20:33)
[2021-01-06 20:53] VITALS: BP 114/51; PULSE 91; RESP 20; TEMP 36.6; O2SAT 94
[2021-01-06 23:52] LABS: Glucose Point of Care 213 mg/dl (65-105)
[2021-01-07] VITALS (8 sets, daily range): BP systolic 107–137; BP diastolic 59–74; PULSE 57–89; RESP 16–20; TEMP 35.6–39.2; O2SAT 94–98
[2021-01-07] MEDS: ERTAPENEM 1 GM/NS 50 ML 1 GM/50 ML BAG IVPB (05:06)
[2021-01-07] MEDS: oxyCODONE/ACETAMINOPHEN (*CRX) 5-325 MG TABLET 1 TABLET PO (05:13)
[2021-01-07 05:48] LABS: Basophils Percent Auto 0.3 % (0.2-1.2); Eosinophils Percent Auto 0.3 % (0-4.4); Hematocrit 35.2 % (37.0-47.0); Hemoglobin 11.9 g/dL (12.0-15.0); Immature Granulocyte Absolute 0.03 K/mm3 (0.00-0.031); Immature Granulocyte Percent A 0.4 % (0-0.5); Lymphocytes Percent Auto 14.2 % (18.3-44.2); Mean Corpuscular HGB Conc 33.8 g/dl (32-36); Mean Corpuscular Hemoglobin 29.2 pg (26-34); Mean Corpuscular Volume 86.3 fl (80-100); Mean Platelet Volume 9.6 fl (7.4-10.4); Monocytes Absolute Auto 0.7 K/mm3 (0.1-0.6); Monocytes Percent Auto 8.6 % (2.6-8.5); Neutrophils Absolute Auto 5.9 K/mm3 (1.3-6.7); Neutrophils Percent Auto 76.2 % (45.5-73.1); Platelet Count Result 248 k/mm3 (150-375); Red Blood Count 4.08 M/mm3 (4.2-5.4); Red Cell Distribution Width 12.3 % (11.5-14.5); White Blood Count 7.8 K/mm3 (4.5-10.0)
[2021-01-07] MEDS: IBUPROFEN 600 MG TABLET PO (06:06)
[2021-01-07 06:14] LABS: Alanine Aminotransferase 28 U/L (4-35); Albumin Level 3.7 g/dL (3.5-5.1); Alkaline Phosphatase 82 U/L (38-126); Anion Gap 10 mmol/L (8-16); Aspartate Amino Transferase 22 U/L (14-36); Bilirubin,Total 0.6 mg/dL (0.2-1.3); Blood Urea Nitrogen 9 mg/dL (7-17); Calcium 8.4 mg/dL (8.4-10.2); Carbon Dioxide 25 mmol/L (22-30); Chloride 100 mmol/L (98-107); Estimated CRCL calculation 82 ml/min; Estimated Glomerular Filt Rate > 60; Glucose 220 mg/dL (65-110); Magnesium 1.9 mg/dL (1.6-2.3); Potassium 3.6 mmol/L (3.4-5.0); Sodium 135 mmol/L (137-145)
[2021-01-07] MEDS: MORPHINE SULFATE (*CRX) 2 MG/ML INJ IV PUSH (08:24)
[2021-01-07] MEDS: ENOXAPARIN 40 MG/0.4 ML SYRINGE SUB-Q (08:24)
[2021-01-07] MEDS: SIMVASTATIN 20 MG TABLET PO (08:25)
[2021-01-07] MEDS: FAMOTIDINE 10 MG TABLET PO ×2 (08:25→20:47)
[2021-01-07] MEDS: INSULIN GLARGINE (*BKC) 100 UNITS/ML 10 UNITS SUB-Q ×2 (08:30→16:50)
[2021-01-07] MEDS: INSULIN ASPART (*BKC) 100 UNITS/ML SUB-Q ×3 (08:31→16:50)
[2021-01-07] MEDS: oxyCODONE/ACETAMINOPHEN (*CRX) 5-325 MG TABLET 2 TABLET PO ×2 (10:03→20:51)
--- NOTE | 2021-01-07 10:29 | PM.IMPN ---
Progress Note: A&P Assessment and Plan (1) Diabetes mellitus: Code(s): E11.9 - Type 2 diabetes mellitus without complications Status: Acute (2) Abscess, renal/perirenal: Code(s): N15.1 - Renal and perinephric abscess Status: Acute (3) Obesity: Code(s): E66.9 - Obesity, unspecified Status: Acute (4) Pyelonephritis: Code(s): N12 - Tubulo-interstitial nephritis, not specified as acute or chronic Status: Acute (5) Hyperlipidemia: Code(s): E78.5 - Hyperlipidemia, unspecified Status: Acute (6) Leukocytosis: Qualifiers: Leukocytosis type: unspecified Qualified Code(s): D72.829 - Elevated white blood cell count, unspecified Code(s): D72.829 - Elevated white blood cell count, unspecified Status: Acute Additional Plan Acute pyelonephritis Sepsis UTI secondary to ESBL E coli Hyperglycemia with history of diabetes Admit to inpatient Ertapenem 1 g q.day Tylenol and Advil p.r.n. for fever Cooling measures with ice packs to axilla and inguinal areas Zofran Clear liquid diet advance as tolerated to Diabetic diet Insulin sliding scale Lantus 10 units q.h.s. Normal saline Pain medication regimen p.r.n. PT OT consult Urology consult in the ER and recommends conservative measures with IV antibiotic therapy at this time. Hemoglobin A1c and lipid panel ordered to assess chronic diseases VTEP heparin SCDs Anticipated length of stay greater than 48 hours should be admitted as inpatient High risk for decompensation high suspicion for Gram-negative bacteremia 01/06/21 WBCs down trending with ertapenem Continues to have intermittent fevers Continue supportive care Blood glucose Near goal Patient 1.5 L fluid balance IV fluids slow to 75 cc/hour Urology following recommendations appreciated 01/07/21 Labs improving Patient continues to have intermittent fevers percocet tylenol and advil for fever /pain Discontinue IV fluid cont abx Subjective Date/time seen: 01/07/21 10:29 patient with an episode of fever this morning with shaking chills and ongoing left-sided flank pain. Plan of care reviewed with RN and initiation of Percocet for pain and fever control requested. Exam Narrative: GEN: NAD, AAOx3, cooperative, obese HEENT: NCAT, MMM, EOMI Neck: no JVD Heart: S1S2 RRR Lungs: CTA B/l Abd: soft, nontender to palpation, ND, bowel sounds normoactive Ext: moves all, no cyanosis, no clubbing, no edema Neuro: No focal neurological deficits, cranial nerves intact Psych: Mood and affect congruent, anxious that she is not getting better Objective Data Vital Signs Vital Signs: Vital Signs - 24 hr 01/06/21 20:53 01/07/21 01:05 01/07/21 05:52 Temperature 98 F 99 F 102.6 F H Pulse Rate 91 76 89 Respiratory Rate 20 16 17 Blood Pressure 114/51 L 127/62 137/61 Pulse Oximetry 94 97 94 01/07/21 06:06 01/07/21 10:05 01/07/21 11:48 Temperature 102.6 F H 97.9 F 97.9 F Pulse Rate Respiratory Rate Blood Pressure Pulse Oximetry 01/07/21 12:00 01/07/21 16:00 Temperature 97.9 F 96.0 F L Pulse Rate 70 57 L Respiratory Rate 20 20 Blood Pressure 107/59 L 116/64 Pulse Oximetry 98 98 Intake/Output Intake/Output: Intake & Output 01/04/21 01/05/21 01/06/21 01/07/21 23:59 23:59 23:59 23:59 Intake Total 4870 2400 1630 Output Total 800 2450 1250 Balance 4070 -50 380 Meds/Results Medications: Active Medications Generic Name Dose Route Start Last Admin Trade Name Freq PRN Reason Stop Dose Admin Acetaminophen 650 mg 01/05/21 11:00 01/06/21 12:51 Acetaminophen 325 Mg Tablet PO 650 mg Q6H PRN Administration Mild Pain (1-3) or Fever Dextrose 12.5 gm 01/05/21 11:01 Dextrose 50% 25 Gm/50 Ml Syringe IV PUSH PRN PRN Hypoglycemia Protocol Enoxaparin Sodium 40 mg 01/06/21 09:00 01/07/21 08:24 Enoxaparin 40 Mg/0.4 Ml Syringe SUB-Q 40 mg DAILY MANASA Administration Fam
[2021-01-07 11:48] LABS: Glucose Point of Care 233 mg/dl (65-105)
--- NOTE | 2021-01-07 14:45 | WPDUROPN2 ---
Progress Note: A&P Assessment and Plan (1) Pyelonephritis: Code(s): N12 - Tubulo-interstitial nephritis, not specified as acute or chronic Status: Acute Assessment and Plan: continue culture specific antbitiocs., wbc stable (2) Abscess, renal/perirenal: Code(s): N15.1 - Renal and perinephric abscess Status: Acute Assessment and Plan: non drainable at this time, continue IV abx, repeat imaging next week. Subjective Subjective Date/Time Seen: 01/07/21 14:45 pain improved, no N/V. urine clear. Review of Systems Constitutional: Constitutional: Reports no additional constitutional complaints, Denies fever(s), Denies snoring and Denies weakness Eyes: Eyes: Reports no additional eye complaints ENT: Reports system reviewed and no additional complaints, except as documented, Denies dysphagia, Denies dizziness, Denies dry mouth and Denies ear discharge Respiratory: Respiratory: Reports no additional respiratory complaints, Denies hemoptysis, Denies snoring and Denies wheezing Gastrointestinal: Gastrointestinal: Reports as per HPI, Reports no additional gastrointestinal complaints, Denies dysphagia, Denies loose stools and Denies nausea Genitourinary: Genitourinary: Reports no additional female genitourinary complaints and Reports as per HPI Musculoskeletal: Musculoskeletal: Reports no additional musculoskeletal complaints and Reports as per HPI Integumentary/Breasts: Skin/Breast: Reports system reviewed and no additional complaints, except as docu and Reports as per HPI Neurologic: Reports system reviewed and no additional complaints, except as documented, Reports as per HPI, Denies confusion, Denies dizziness, Denies memory loss and Denies weakness Psychiatric: Psychiatric: Reports no additional psychiatric complaints, Reports as per HPI, Denies confusion, Denies memory loss and Denies mood swings Endocrine: Endocrine: Reports no additional endocrine complaints Hematologic/Lymphatic: Hematologic/Lymphatic: Reports no additional hematologic/lymphatic complaints and Reports as per HPI Allergic/Immunologic: Allergic/Immunologic: Reports no additional allergic/immunologic complaints, Reports as per HPI and Denies wheezing Exam Const: General: cooperative, healthy appearing, comfortable and no acute distress Resp: Effort & Inspection: normal respiratory effort and no respiratory distress GI: Inspection: normal to inspection and non-distended GI Palp: No Tenderness to palpation present (GI) and No Guarding due to palpation present (GI) Back/Spine/Pelvis: Back: CVA tenderness (left) Neuro: General: oriented to person and oriented to place Extrem: General: normal to inspection Objective Data Vital Signs Vital Signs: Vital Signs - 24 hr 01/06/21 15:48 01/06/21 20:53 01/07/21 01:05 Temperature 37.1 C 36.6 C 37.2 C Pulse Rate 88 91 76 Respiratory Rate 16 20 16 Blood Pressure 110/48 L 114/51 L 127/62 Pulse Oximetry 95 94 97 01/07/21 05:52 01/07/21 06:06 01/07/21 10:05 Temperature 39.2 C H 39.2 C H 36.6 C Pulse Rate 89 Respiratory Rate 17 Blood Pressure 137/61 Pulse Oximetry 94 01/07/21 11:48 01/07/21 12:00 Temperature 36.6 C 36.6 C Pulse Rate 70 Respiratory Rate 20 Blood Pressure 107/59 L Pulse Oximetry 98 Intake/Output Intake/Output: Intake & Output 01/04/21 01/05/21 01/06/21 01/07/21 23:59 23:59 23:59 23:59 Intake Total 4870 2400 1080 Output Total 800 2450 850 Balance 4070 -50 230 Meds/Results Medications: Active Medications Generic Name Dose Route Start Last Admin Trade Name Freq PRN Reason Stop Dose Admin Acetaminophen 650 mg 01/05/21 11:00 01/06/21 12:51 Acetaminophen 325 Mg Tablet PO 650 mg Q6H PRN Administration Mild Pain (1-3) or Fever Dextrose 12.5 gm 01/05/21 11:01 Dextrose 50% 25 Gm/50 Ml Syringe IV PUSH PRN PRN Hypoglycemia Protocol Enoxaparin Sodium 40 mg 01/06/21 09:00 12/28
[2021-01-07 16:41] LABS: Glucose Point of Care 256 mg/dl (65-105)
[2021-01-07 22:25] LABS: Glucose Point of Care 225 mg/dl (65-105)
[2021-01-08] VITALS: BP 117/44; PULSE 82; RESP 16; TEMP 36.2; O2SAT 96
[2021-01-08] MEDS: oxyCODONE/ACETAMINOPHEN (*CRX) 5-325 MG TABLET 1 TABLET PO ×4 (00:57→16:54)
[2021-01-08 04:00] VITALS: BP 120/57; PULSE 70; RESP 18; TEMP 36.3; O2SAT 98
[2021-01-08] MEDS: ERTAPENEM 1 GM/NS 50 ML 1 GM/50 ML BAG IVPB (05:11)
[2021-01-08 06:25] LABS: Basophils Percent Auto 0.2 % (0.2-1.2); Eosinophils Absolute Auto 0.1 K/mm3 (0-0.3); Eosinophils Percent Auto 1.4 % (0-4.4); Hematocrit 33.6 % (37.0-47.0); Hemoglobin 11.2 g/dL (12.0-15.0); Immature Granulocyte Absolute 0.02 K/mm3 (0.00-0.031); Immature Granulocyte Percent A 0.4 % (0-0.5); Lymphocytes Absolute Auto 1.45 K/mm3 (0.9-3.2); Lymphocytes Percent Auto 28.7 % (18.3-44.2); Mean Corpuscular HGB Conc 33.3 g/dl (32-36); Mean Corpuscular Hemoglobin 28.9 pg (26-34); Mean Corpuscular Volume 86.8 fl (80-100); Mean Platelet Volume 9.8 fl (7.4-10.4); Monocytes Absolute Auto 0.6 K/mm3 (0.1-0.6); Monocytes Percent Auto 11.9 % (2.6-8.5); Neutrophils Absolute Auto 2.9 K/mm3 (1.3-6.7); Neutrophils Percent Auto 57.4 % (45.5-73.1); Platelet Count Result 259 k/mm3 (150-375); Red Blood Count 3.87 M/mm3 (4.2-5.4); Red Cell Distribution Width 12.2 % (11.5-14.5); White Blood Count 5.1 K/mm3 (4.5-10.0)
[2021-01-08 06:30] LABS: Anion Gap 7 mmol/L (8-16); Blood Urea Nitrogen 9 mg/dL (7-17); Calcium 8.5 mg/dL (8.4-10.2); Carbon Dioxide 28 mmol/L (22-30); Chloride 100 mmol/L (98-107); Estimated CRCL calculation 97 ml/min; Estimated Glomerular Filt Rate > 60; Glucose 158 mg/dL (65-110); Magnesium 1.9 mg/dL (1.6-2.3); Potassium 3.8 mmol/L (3.4-5.0); Sodium 135 mmol/L (137-145)
--- NOTE | 2021-01-08 07:57 | PM.IMPN ---
Progress Note: A&P Assessment and Plan (1) Diabetes mellitus: Code(s): E11.9 - Type 2 diabetes mellitus without complications Status: Acute (2) Abscess, renal/perirenal: Code(s): N15.1 - Renal and perinephric abscess Status: Acute (3) Obesity: Code(s): E66.9 - Obesity, unspecified Status: Acute (4) Pyelonephritis: Code(s): N12 - Tubulo-interstitial nephritis, not specified as acute or chronic Status: Acute (5) Hyperlipidemia: Code(s): E78.5 - Hyperlipidemia, unspecified Status: Acute (6) Leukocytosis: Qualifiers: Leukocytosis type: unspecified Qualified Code(s): D72.829 - Elevated white blood cell count, unspecified Code(s): D72.829 - Elevated white blood cell count, unspecified Status: Acute Additional Plan Acute pyelonephritis Sepsis UTI secondary to ESBL E coli Hyperglycemia with history of diabetes Admit to inpatient Ertapenem 1 g q.day Tylenol and Advil p.r.n. for fever Cooling measures with ice packs to axilla and inguinal areas Zofran Clear liquid diet advance as tolerated to Diabetic diet Insulin sliding scale Lantus 10 units q.h.s. Normal saline Pain medication regimen p.r.n. PT OT consult Urology consult in the ER and recommends conservative measures with IV antibiotic therapy at this time. Hemoglobin A1c and lipid panel ordered to assess chronic diseases VTEP heparin SCDs Anticipated length of stay greater than 48 hours should be admitted as inpatient High risk for decompensation high suspicion for Gram-negative bacteremia 01/06/21 WBCs down trending with ertapenem Continues to have intermittent fevers Continue supportive care Blood glucose Near goal Patient 1.5 L fluid balance IV fluids slow to 75 cc/hour Urology following recommendations appreciated 01/07/21 Labs improving Patient continues to have intermittent fevers percocet tylenol and advil for fever /pain Discontinue IV fluid cont abx 01/08/21 Uncontrolled diabetes mellitus hemoglobin A1c at 9.3 will need new diabetic regimen at discharge labs have normalized patient is afebrile for 24 hours continue current care will need repeat CT imaging to assess abscess perihilar region where there is a 2.2 x 1.9 cm prior to discharge urology following recommendations appreciated Subjective Date/time seen: 01/08/21 07:57 patient feeling better she is upset she states that overnight she was so thirsty in the night worker was not taking very adequate care of her and refused to let her have water. She did report this to the overnight tank house operator helper. She states that she felt bad doing it but this was the 2nd night that she had complaints and she needed to address that with someone. Overall, her left-sided flank pain is still present but controlled with 1 Percocet, and I have shared with her that her labs are normalizing. Exam Narrative: GEN: NAD, AAOx3, cooperative, obese HEENT: NCAT, MMM, EOMI Neck: no JVD Heart: S1S2 RRR Lungs: CTA B/l Abd: soft, nontender to palpation, ND, bowel sounds normoactive Ext: moves all, no cyanosis, no clubbing, no edema Neuro: No focal neurological deficits, cranial nerves intact Psych: Mood and affect congruent Objective Data Vital Signs Vital Signs: Vital Signs - 24 hr 01/07/21 10:05 01/07/21 11:48 01/07/21 12:00 Temperature 97.9 F 97.9 F 97.9 F Pulse Rate 70 Respiratory Rate 20 Blood Pressure 107/59 L Pulse Oximetry 98 01/07/21 16:00 01/07/21 20:00 01/08/21 00:00 Temperature 96.0 F L 96.6 F L 97.1 F L Pulse Rate 57 L 88 82 Respiratory Rate 20 16 16 Blood Pressure 116/64 130/74 117/44 L Pulse Oximetry 98 98 96 01/08/21 04:00 Temperature 97.3 F L Pulse Rate 70 Respiratory Rate 18 Blood Pressure 120/57 L Pulse Oximetry 98 Intake/Output Intake/Output: Intake & Output 01/05/21 01/06/21 01/07/21 01/08/21 23:59 23:59 23:59 23:59 Intake Total 4870 2400 1870 300 Output
[2021-01-08 08:00] VITALS: BP 124/60; PULSE 78; RESP 20; TEMP 36.7; O2SAT 96
[2021-01-08 08:04] LABS: Glucose Point of Care 141 mg/dl (65-105)
[2021-01-08] MEDS: SIMVASTATIN 20 MG TABLET PO (09:28)
[2021-01-08] MEDS: FAMOTIDINE 10 MG TABLET PO ×2 (09:28→20:07)
[2021-01-08] MEDS: ENOXAPARIN 40 MG/0.4 ML SYRINGE SUB-Q (09:28)
[2021-01-08] MEDS: INSULIN GLARGINE (*BKC) 100 UNITS/ML 10 UNITS SUB-Q ×2 (09:28→16:54)
[2021-01-08 12:00] VITALS: BP 131/59; PULSE 94; RESP 20; TEMP 36.9; O2SAT 94
[2021-01-08 12:13] LABS: Glucose Point of Care 198 mg/dl (65-105)
--- NOTE | 2021-01-08 12:26 | WPDUROPN2 ---
Progress Note: A&P Assessment and Plan (1) Pyelonephritis: Code(s): N12 - Tubulo-interstitial nephritis, not specified as acute or chronic Status: Acute Assessment and Plan: continue culture specific antbitiocs., wbc stable (2) Abscess, renal/perirenal: Code(s): N15.1 - Renal and perinephric abscess Status: Acute Assessment and Plan: non drainable at this time, continue IV abx, repeat imaging next week. Subjective Subjective Date/Time Seen: 01/08/21 12:26 No acute events, no complaints. no fevers or chills. Review of Systems Constitutional: Constitutional: Reports no additional constitutional complaints, Denies fever(s), Denies snoring and Denies weakness Eyes: Eyes: Reports no additional eye complaints ENT: Reports system reviewed and no additional complaints, except as documented, Denies dysphagia, Denies dizziness, Denies dry mouth and Denies ear discharge Cardiovascular: Cardiovascular: Denies chest pain Respiratory: Respiratory: Reports no additional respiratory complaints, Denies hemoptysis, Denies snoring and Denies wheezing Gastrointestinal: Gastrointestinal: Reports as per HPI, Reports no additional gastrointestinal complaints, Reports abdominal pain, Denies dysphagia, Denies loose stools, Denies nausea and Denies vomiting Genitourinary: Genitourinary: Reports no additional female genitourinary complaints, Reports as per HPI, Denies hematuria, Reports nocturia, Denies dysuria, Reports flank pain, Denies urinary incontinence and Reports urinary urgency Musculoskeletal: Musculoskeletal: Reports no additional musculoskeletal complaints and Reports as per HPI Integumentary/Breasts: Skin/Breast: Reports system reviewed and no additional complaints, except as docu and Reports as per HPI Neurologic: Reports system reviewed and no additional complaints, except as documented, Reports as per HPI, Denies confusion, Denies dizziness, Denies memory loss and Denies weakness Psychiatric: Psychiatric: Reports no additional psychiatric complaints, Reports as per HPI, Denies confusion, Denies memory loss and Denies mood swings Endocrine: Endocrine: Reports no additional endocrine complaints Hematologic/Lymphatic: Hematologic/Lymphatic: Reports no additional hematologic/lymphatic complaints and Reports as per HPI Allergic/Immunologic: Allergic/Immunologic: Reports no additional allergic/immunologic complaints, Reports as per HPI and Denies wheezing Exam Const: General: cooperative, healthy appearing, comfortable and no acute distress; No confusion Orientation/consciousness: oriented to person, oriented to place and No confusion Resp: Effort & Inspection: normal respiratory effort and no respiratory distress Cardio: Rate: regular rate and tachycardic GI: Inspection: normal to inspection and non-distended : General: Yes CVA tenderness (left) on the left Back/Spine/Pelvis: Back: CVA tenderness (left) Neuro: General: oriented to person, oriented to place and No confusion Extrem: General: normal to inspection and no edema Objective Data Vital Signs Vital Signs: Vital Signs - 24 hr 01/07/21 16:00 01/07/21 20:00 01/08/21 00:00 Temperature 35.6 C L 35.9 C L 36.2 C L Pulse Rate 57 L 88 82 Respiratory Rate 20 16 16 Blood Pressure 116/64 130/74 117/44 L Pulse Oximetry 98 98 96 01/08/21 04:00 01/08/21 08:00 01/08/21 12:00 Temperature 36.3 C L 36.7 C 36.9 C Pulse Rate 70 78 94 Respiratory Rate 18 20 20 Blood Pressure 120/57 L 124/60 131/59 L Pulse Oximetry 98 96 94 Intake/Output Intake/Output: Intake & Output 01/05/21 01/06/21 01/07/21 01/08/21 23:59 23:59 23:59 23:59 Intake Total 4870 2400 1870 420 Output Total 800 2450 1250 Balance 4070 -50 620 420 Meds/Results Medications: Active Medications Generic Name Dose Route Start Last Admin Trade Name Freq PRN Reason Stop Dose Admin Acetaminophen 650 mg 01/05/21 11:00 01/06/21 12:51 Acetaminophen 325
[2021-01-08 16:00] VITALS: BP 107/58; PULSE 74; RESP 20; TEMP 35.6; O2SAT 96
[2021-01-08 16:36] LABS: Glucose Point of Care 175 mg/dl (65-105)
[2021-01-08] MEDS: ONDANSETRON INJ 4 MG/2 ML VIAL IV PUSH (16:54)
[2021-01-08 20:00] VITALS: BP 102/57; PULSE 66; RESP 16; TEMP 36; O2SAT 95
[2021-01-08 20:16] LABS: Glucose Point of Care 219 mg/dl (65-105)
[2021-01-09] MEDS: oxyCODONE/ACETAMINOPHEN (*CRX) 5-325 MG TABLET 1 TABLET PO ×3 (05:24→21:04)
[2021-01-09 05:27] VITALS: BP 113/66; PULSE 86; RESP 16; TEMP 35.9; O2SAT 99
[2021-01-09] MEDS: ERTAPENEM 1 GM/NS 50 ML 1 GM/50 ML BAG IVPB (05:27)
[2021-01-09 08:18] LABS: Glucose Point of Care 158 mg/dl (65-105)
[2021-01-09] MEDS: INSULIN GLARGINE (*BKC) 100 UNITS/ML 10 UNITS SUB-Q ×2 (09:13→16:44)
[2021-01-09] MEDS: ENOXAPARIN 40 MG/0.4 ML SYRINGE SUB-Q (09:14)
[2021-01-09] MEDS: FAMOTIDINE 10 MG TABLET PO ×2 (09:14→21:05)
[2021-01-09] MEDS: SIMVASTATIN 20 MG TABLET PO (09:17)
[2021-01-09] MEDS: INSULIN ASPART (*BKC) 100 UNITS/ML SUB-Q ×2 (12:14→16:45)
[2021-01-09 12:22] LABS: Glucose Point of Care 215 mg/dl (65-105)
[2021-01-09 14:35] VITALS: BP 117/61; PULSE 63; RESP 16; TEMP 37.1; O2SAT 99
--- NOTE | 2021-01-09 16:39 | PM.IMPN ---
Progress Note: A&P Assessment and Plan (1) Abscess, renal/perirenal: Code(s): N15.1 - Renal and perinephric abscess Status: Acute Assessment and Plan: CT abdomen/pelvis showed left-sided pyelonephritis with perihilar renal abscess without significant drainable fluid component. Fevers resolved. Appreciate urology consultation Continue IV ertapenem; started on 01/05/21 She will need outpatient Urology follow-up for repeat imaging in 1 week Initial urine culture collected on 12/30 with ESBL. Subsequent urine culture negative. (2) Pyelonephritis: Code(s): N12 - Tubulo-interstitial nephritis, not specified as acute or chronic Status: Acute Assessment and Plan: Plan as above (3) Septicemia: Code(s): A41.9 - Sepsis, unspecified organism Status: Acute Assessment and Plan: Blood cultures collected 01/05/2021 with growth of ESBL in 2/2 bottles. Patient septic on admission with fever, tachycardia, tachypnea, and leukocytosis. Source of infection felt to be renal abscess/pyelonephritis. Sepsis has resolved. Continue with ertapenem. Consult to Infectious Disease for antibiotic recommendations. Consult is appreciated. (4) Diabetes mellitus: Code(s): E11.9 - Type 2 diabetes mellitus without complications Status: Acute Assessment and Plan: A1c is 9.3. Continue Accu-Cheks, sliding scale insulin, hypoglycemic protocol Continue Lantus 10 units daily while hospitalized Home glimepiride, sitagliptin, and metformin on hold (5) Hyperlipidemia: Code(s): E78.5 - Hyperlipidemia, unspecified Status: Acute Assessment and Plan: LFTs within normal limits. Continue simvastatin. Subjective Date/time seen: 01/09/21 16:39 Interval history: Date of service: 01/09/2021 Maylin Lau is a 55-year-old female with history of diabetes mellitus and hyperlipidemia who is seen in follow-up for renal abscess. She is doing okay today. She is complaining of left flank pain which she rates as 4/10. Pain improves with analgesics. She does note that analgesics are causing her to have a headache and she thinks she might be getting too much and would like to back this down. She endorses fevers and chills today. No nausea or vomiting. She has had poor appetite but has been finally starting to eat a little bit more today. She denies abdominal pain. Her last bowel movement was about 3 days ago. She feels constipated but denies abdominal cramping or bloating. No dysuria or hematuria. She has been able to ambulate to the restroom without difficulty and denies any urinary symptoms. No shortness breath, cough, chest pain, dizziness, lightheadedness. Patient speaks French only. Interview performed with assistance of per diem interpreter via video chat. Review of Systems Review of Systems: All systems reviewed & are unremarkable except as noted in HPI and below Exam Narrative: Ms. Lau is a well-nourished, well-appearing 55-year-old female who is lying semi recumbent in bed. She appears comfortable and is in NARD. Neuro: awake, alert and oriented x4, speech clear, no focal neuro deficits noted HEENMT: normocephalic, atraumatic, EOMI, sclerae anicteric Neck: supple, no lymphadenopathy Respiratory: clear to auscultation bilaterally, nonlabored breathing Cardio: regular rate, regular rhythm with S1-S2 Abdomen: nondistended, normoactive bowel sounds, soft, nontender to palpation : No CVA tenderness, left flank is tender to palpation Extremities: no edema, erythema, or tenderness to palpation, DP pulses 2+ bilaterally Skin: no rashes or lesions, warm and dry Psych: appropriate mood and affect, judgment and insight intact Objective Data Vital Signs Vital Signs: Vital Signs - 24 hr 01/08/21 20:00 01/09/21 05:27 01/09/21 14:35 Temperature 96.8 F L 96.7 F L 98.7 F Pulse Rate 66 86 63 Respiratory Rate 16 16 16 Blood Pressure 102/57 L
--- NOTE | 2021-01-09 16:52 | WPDUROPN2 ---
Progress Note: A&P Assessment and Plan (1) Abscess, renal/perirenal: Code(s): N15.1 - Renal and perinephric abscess Status: Acute Assessment and Plan: WBC is improved to baseline, creatiine is normal. Pain is also improved. Will repeat CT and re-assess her abscess. Blood and urine cultures growing E-Coli. Continue IV antibiotics. Subjective Subjective Date/Time Seen: 01/09/21 16:52 No acute events, no complaints. no fevers or chills. Review of Systems Cardiovascular: Cardiovascular: Denies chest pain Respiratory: Respiratory: Reports no additional respiratory complaints Gastrointestinal: Gastrointestinal: Reports abdominal pain, Denies nausea and Denies vomiting Genitourinary: Genitourinary: Denies hematuria, Denies dysuria, Reports flank pain, Denies urinary hesitancy and Reports urinary urgency Exam Resp: Effort & Inspection: normal respiratory effort Cardio: Rate: regular rate GI: GI Palp: Yes Soft to palpation and Yes Tenderness to palpation present (GI) (LLQ) : General: Yes CVA tenderness on the left Extrem: General: no edema Objective Data Vital Signs Vital Signs: Vital Signs - 24 hr 01/08/21 20:00 01/09/21 05:27 01/09/21 14:35 Temperature 96.8 F L 96.7 F L 98.7 F Pulse Rate 66 86 63 Respiratory Rate 16 16 16 Blood Pressure 102/57 L 113/66 117/61 Pulse Oximetry 95 99 99 Intake/Output Intake/Output: Intake & Output 01/06/21 01/07/21 01/08/21 01/09/21 23:59 23:59 23:59 23:59 Intake Total 2400 1870 1210 1030 Output Total 2450 1250 1100 Balance -50 620 1210 -70 Meds/Results Medications: Active Medications Generic Name Dose Route Start Last Admin Trade Name Freq PRN Reason Stop Dose Admin Acetaminophen 650 mg 01/05/21 11:00 01/06/21 12:51 Acetaminophen 325 Mg Tablet PO 650 mg Q6H PRN Administration Mild Pain (1-3) or Fever Dextrose 12.5 gm 01/05/21 11:01 Dextrose 50% 25 Gm/50 Ml Syringe IV PUSH PRN PRN Hypoglycemia Protocol Enoxaparin Sodium 40 mg 01/06/21 09:00 01/09/21 09:14 Enoxaparin 40 Mg/0.4 Ml Syringe SUB-Q 40 mg DAILY MANASA Administration Famotidine 10 mg 01/05/21 21:00 01/09/21 09:14 Famotidine 10 Mg Tablet PO 10 mg Q12HR MANASA Administration Glucagon 1 mg 01/05/21 11:01 Glucagon For Inj 1 Mg Vial IM PRN PRN Hypoglycemia Protocol Glucose 15 gm 01/05/21 11:01 Glucose Oral Gel 15 Gm Of Glucse In 37.5 Gm Tube PO PRN PRN Hypoglycemia Protocol Ertapenem 1 gm in 50 mls @ 100 mls/hr 01/06/21 06:00 01/09/21 05:57 Invanz 1 Gm/Ns 50 Ml IVPB Infused Q24H MANASA Infusion Dextrose 1,000 mls @ 100 mls/hr 01/05/21 11:01 Dextrose 5% 1,000 Ml IVPB PRN PRN Hypoglycemia Protocol Ibuprofen 600 mg 01/07/21 17:33 Ibuprofen 600 Mg Tablet PO Q6H PRN Fever Insulin Aspart 3 - 6 units 01/05/21 12:00 01/09/21 16:45 Insulin Aspart (*Bkc) 100 Units/Ml SUB-Q 3 units TIDWM MANASA Administration Protocol Insulin Glargine 10 units 01/06/21 09:00 01/09/21 16:44 Insulin Glargine (*Bkc) 100 Units/Ml 0.15 units/kg (10 units) 10 units SUB-Q Administration BID MANASA Morphine Sulfate 2 mg 01/07/21 17:33 Morphine Sulfate (*Crx) 2 Mg/Ml Inj IV PUSH Q4H PRN breakthrough after Percocet Ondansetron HCl 4 mg 01/05/21 11:00 01/08/21 16:54 Ondansetron Inj 4 Mg/2 Ml Vial IV PUSH 4 mg Q6H PRN Administration Nausea And Vomiting Oxycodone/Acetaminophen 2 tablet 01/05/21 10:58 01/07/21 20:51 Oxycodone/Acetaminophen (*Crx) 5-325 Mg Tablet PO 2 tablet Q4H PRN Administration Pain Rated 7-10 Oxycodone/Acetaminophen 1 tablet 01/05/21 10:59 01/09/21 14:13 Oxycodone/Acetaminophen (*Crx) 5-325 Mg Tablet PO 1 tablet Q4H PRN Administration Pain Rated 4-6 Simvastatin 20 mg 01/06/21 09:00 01/09/21 09:17 Simvastatin 20 Mg Tablet PO 20 mg DAILY MANASA Administ
[2021-01-09 16:54] LABS: Glucose Point of Care 226 mg/dl (65-105)
[2021-01-09 20:00] VITALS: PULSE 62; RESP 16; O2SAT 100
[2021-01-09 21:10] LABS: Glucose Point of Care 114 mg/dl (65-105)
[2021-01-09 21:53] VITALS: BP 126/61; PULSE 62; RESP 16; TEMP 37; O2SAT 100
[2021-01-10] MEDS: ERTAPENEM 1 GM/NS 50 ML 1 GM/50 ML BAG IVPB (05:09)
[2021-01-10 06:02] LABS: Hematocrit 39.5 % (37.0-47.0); Hemoglobin 13.4 g/dL (12.0-15.0); Mean Corpuscular HGB Conc 33.9 g/dl (32-36); Mean Corpuscular Hemoglobin 29.7 pg (26-34); Mean Corpuscular Volume 87.6 fl (80-100); Mean Platelet Volume 9.3 fl (7.4-10.4); Platelet Count Result 327 k/mm3 (150-375); Red Blood Count 4.51 M/mm3 (4.2-5.4); Red Cell Distribution Width 12.4 % (11.5-14.5); White Blood Count 4.2 K/mm3 (4.5-10.0)
[2021-01-10] MEDS: oxyCODONE/ACETAMINOPHEN (*CRX) 5-325 MG TABLET 1 TABLET PO (06:06)
[2021-01-10 06:18] LABS: Anion Gap 10 mmol/L (8-16); Blood Urea Nitrogen 10 mg/dL (7-17); CRP 6.9 mg/dL (<1.0); Calcium 9.1 mg/dL (8.4-10.2); Carbon Dioxide 27 mmol/L (22-30); Chloride 103 mmol/L (98-107); Estimated CRCL calculation 97 ml/min; Estimated Glomerular Filt Rate > 60; Glucose 159 mg/dL (65-110); Potassium 4.2 mmol/L (3.4-5.0); Sodium 140 mmol/L (137-145)
[2021-01-10 06:45] VITALS: BP 130/60; PULSE 64; RESP 18; TEMP 36.9; O2SAT 98
[2021-01-10 08:08] LABS: Glucose Point of Care 165 mg/dl (65-105)
[2021-01-10] MEDS: FAMOTIDINE 10 MG TABLET PO ×2 (10:03→20:51)
[2021-01-10] MEDS: ENOXAPARIN 40 MG/0.4 ML SYRINGE SUB-Q (10:04)
[2021-01-10] MEDS: SIMVASTATIN 20 MG TABLET PO (10:04)
[2021-01-10] MEDS: INSULIN GLARGINE (*BKC) 100 UNITS/ML 10 UNITS SUB-Q ×2 (10:06→17:33)
[2021-01-10] MEDS: INSULIN ASPART (*BKC) 100 UNITS/ML SUB-Q (11:50)
[2021-01-10 11:51] LABS: Glucose Point of Care 223 mg/dl (65-105)
--- NOTE | 2021-01-10 12:51 | WPDUROPN2 ---
Progress Note: A&P Assessment and Plan (1) Bacteremia: Code(s): R78.81 - Bacteremia Status: Acute (2) Abscess, renal/perirenal: Code(s): N15.1 - Renal and perinephric abscess Status: Acute Assessment and Plan: CT today shows improvement of renal abscess. Per discussion with Dr. Brandt, we will recommend she go home on 3 weeks of culture appropriate antibiotics She will then need a CT scan in one month to re-assess and f/u with Dr. Brandt. Subjective Subjective Date/Time Seen: 01/10/21 12:51 No acute events, no complaints. no fevers or chills. Patient sitting up in bed, eating lunch. Her pain level is well controlled. Review of Systems Respiratory: Respiratory: Reports no additional respiratory complaints Gastrointestinal: Gastrointestinal: Denies abdominal pain, Denies nausea and Denies vomiting Genitourinary: Genitourinary: Denies dysuria, Denies flank pain and Denies urinary urgency Exam Resp: Effort & Inspection: normal respiratory effort Cardio: Rate: regular rate GI: GI Palp: Yes Soft to palpation and No Tenderness to palpation present (GI) : General: Yes no CVA tenderness Extrem: General: normal to inspection Objective Data Vital Signs Vital Signs: Vital Signs - 24 hr 01/09/21 14:35 01/09/21 20:00 01/09/21 21:53 Temperature 98.7 F 98.6 F Pulse Rate 63 62 62 Respiratory Rate 16 16 16 Blood Pressure 117/61 126/61 Pulse Oximetry 99 100 100 01/10/21 06:45 Temperature 98.4 F Pulse Rate 64 Respiratory Rate 18 Blood Pressure 130/60 Pulse Oximetry 98 Intake/Output Intake/Output: Intake & Output 01/07/21 01/08/21 01/09/21 01/10/21 23:59 23:59 23:59 23:59 Intake Total 1870 1210 1920 450 Output Total 1250 1500 300 Balance 620 1210 420 150 Meds/Results Medications: Active Medications Generic Name Dose Route Start Last Admin Trade Name Freq PRN Reason Stop Dose Admin Acetaminophen 650 mg 01/09/21 17:01 Acetaminophen 325 Mg Tablet PO Q6H PRN Pain 1-5 Dextrose 12.5 gm 01/05/21 11:01 Dextrose 50% 25 Gm/50 Ml Syringe IV PUSH PRN PRN Hypoglycemia Protocol Enoxaparin Sodium 40 mg 01/06/21 09:00 01/10/21 10:04 Enoxaparin 40 Mg/0.4 Ml Syringe SUB-Q 40 mg DAILY MANASA Administration Famotidine 10 mg 01/05/21 21:00 01/10/21 10:03 Famotidine 10 Mg Tablet PO 10 mg Q12HR MANASA Administration Glucagon 1 mg 01/05/21 11:01 Glucagon For Inj 1 Mg Vial IM PRN PRN Hypoglycemia Protocol Glucose 15 gm 01/05/21 11:01 Glucose Oral Gel 15 Gm Of Glucse In 37.5 Gm Tube PO PRN PRN Hypoglycemia Protocol Ertapenem 1 gm in 50 mls @ 100 mls/hr 01/06/21 06:00 01/10/21 05:09 Invanz 1 Gm/Ns 50 Ml IVPB 100 mls/hr Q24H MANASA Administration Dextrose 1,000 mls @ 100 mls/hr 01/05/21 11:01 Dextrose 5% 1,000 Ml IVPB PRN PRN Hypoglycemia Protocol Ibuprofen 600 mg 01/07/21 17:33 Ibuprofen 600 Mg Tablet PO Q6H PRN Fever Insulin Aspart 3 - 6 units 01/05/21 12:00 01/10/21 11:50 Insulin Aspart (*Bkc) 100 Units/Ml SUB-Q 3 units TIDWM MANASA Administration Protocol Insulin Glargine 10 units 01/06/21 09:00 01/10/21 10:06 Insulin Glargine (*Bkc) 100 Units/Ml 0.15 units/kg (10 units) 10 units SUB-Q Administration BID [facility] Morphine Sulfate 2 mg 01/07/21 17:33 Morphine Sulfate (*Crx) 2 Mg/Ml Inj IV PUSH Q4H PRN breakthrough after Percocet Ondansetron HCl 4 mg 01/05/21 11:00 01/08/21 16:54 Ondansetron Inj 4 Mg/2 Ml Vial IV PUSH 4 mg Q6H PRN Administration Nausea And Vomiting Oxycodone/Acetaminophen 1 tablet 01/05/21 10:59 01/10/21 06:06 Oxycodone/Acetaminophen (*Crx) 5-325 Mg Tablet PO 1 tablet Q4H PRN Administration Pain Rated 4-6 Simvastatin 20 mg 01/06/21 09:00 01/10/21 10:04 Simvastatin 20 Mg Tablet PO 20 mg DAILY MANASA Administration Radio
--- NOTE | 2021-01-10 13:49 | WPDINFPN2 ---
Progress Note: A&P Assessment and Plan (1) Septicemia: Code(s): A41.9 - Sepsis, unspecified organism Status: Acute Assessment and Plan: E. coli bacteremia with infection, source. REC Ertapenem once daily through 01/26, ok discharge planning. Call if Qs Subjective Date/time seen: 01/10/21 13:49 Objective Data Vital Signs Vital Signs: Vital Signs - 24 hr 01/09/21 14:35 01/09/21 20:00 01/09/21 21:53 Temperature 37.1 C 37.0 C Pulse Rate 63 62 62 Respiratory Rate 16 16 16 Blood Pressure 117/61 126/61 Pulse Oximetry 99 100 100 01/10/21 06:45 Temperature 36.9 C Pulse Rate 64 Respiratory Rate 18 Blood Pressure 130/60 Pulse Oximetry 98 Intake/Output Intake/Output: Intake & Output 01/07/21 01/08/21 01/09/21 01/10/21 23:59 23:59 23:59 23:59 Intake Total 1870 1210 1920 450 Output Total 1250 1500 300 Balance 620 1210 420 150 Meds/Results Medications: Active Medications Generic Name Dose Route Start Last Admin Trade Name Freq PRN Reason Stop Dose Admin Acetaminophen 650 mg 01/09/21 17:01 Acetaminophen 325 Mg Tablet PO Q6H PRN Pain 1-5 Dextrose 12.5 gm 01/05/21 11:01 Dextrose 50% 25 Gm/50 Ml Syringe IV PUSH PRN PRN Hypoglycemia Protocol Enoxaparin Sodium 40 mg 01/06/21 09:00 01/10/21 10:04 Enoxaparin 40 Mg/0.4 Ml Syringe SUB-Q 40 mg DAILY MANASA Administration Famotidine 10 mg 01/05/21 21:00 01/10/21 10:03 Famotidine 10 Mg Tablet PO 10 mg Q12HR MANASA Administration Glucagon 1 mg 01/05/21 11:01 Glucagon For Inj 1 Mg Vial IM PRN PRN Hypoglycemia Protocol Glucose 15 gm 01/05/21 11:01 Glucose Oral Gel 15 Gm Of Glucse In 37.5 Gm Tube PO PRN PRN Hypoglycemia Protocol Ertapenem 1 gm in 50 mls @ 100 mls/hr 01/06/21 06:00 01/10/21 05:09 Invanz 1 Gm/Ns 50 Ml IVPB 01/26/21 06:01 100 mls/hr Q24H MANASA Administration Dextrose 1,000 mls @ 100 mls/hr 01/05/21 11:01 Dextrose 5% 1,000 Ml IVPB PRN PRN Hypoglycemia Protocol Ibuprofen 600 mg 01/07/21 17:33 Ibuprofen 600 Mg Tablet PO Q6H PRN Fever Insulin Aspart 3 - 6 units 01/05/21 12:00 01/10/21 11:50 Insulin Aspart (*Bkc) 100 Units/Ml SUB-Q 3 units TIDWM MANASA Administration Protocol Insulin Glargine 10 units 01/06/21 09:00 01/10/21 10:06 Insulin Glargine (*Bkc) 100 Units/Ml 0.15 units/kg (10 units) 10 units SUB-Q Administration BID [facility] Morphine Sulfate 2 mg 01/07/21 17:33 Morphine Sulfate (*Crx) 2 Mg/Ml Inj IV PUSH Q4H PRN breakthrough after Percocet Ondansetron HCl 4 mg 01/05/21 11:00 01/08/21 16:54 Ondansetron Inj 4 Mg/2 Ml Vial IV PUSH 4 mg Q6H PRN Administration Nausea And Vomiting Oxycodone/Acetaminophen 1 tablet 01/05/21 10:59 01/10/21 06:06 Oxycodone/Acetaminophen (*Crx) 5-325 Mg Tablet PO 1 tablet Q4H PRN Administration Pain Rated 4-6 Simvastatin 20 mg 01/06/21 09:00 01/10/21 10:04 Simvastatin 20 Mg Tablet PO 20 mg DAILY MANASA Administration Radiology Results: ITS Impressions Abdomen/Pelvis CT 01/10/21 09:38 IMPRESSION: 1. Left pyelonephritis and left kidney abscess both with slight interval improvement. Labs Labs: Laboratory Results - last 24 hr 01/09/21 01/09/21 01/10/21 16:41 21:04 05:18 WBC 4.2 L RBC 4.51 Hgb 13.4 Hct 39.5 MCV 87.6 MCH 29.7 MCHC 33.9 RDW 12.4 Plt Count 327 MPV 9.3 Sodium Potassium Chloride Carbon Dioxide Anion Gap BUN Creatinine Estim Creat Clear Calc Estimated GFR Glucose POC Capillary Glucose 226 H 114 H Calcium C-Reactive Protein 01/10/21 01/10/21 01/10/21 05:18 07:57 11:48 WBC RBC Hgb Hct MCV MCH MCHC RDW Plt Count MPV Sodium 140 Potassium 4.2 Chloride 103 Carbon Dioxide 27 Anion Gap 10 BUN 10 Creati
[2021-01-10 14:00] VITALS: BP 113/54; PULSE 60; RESP 18; TEMP 36.8; O2SAT 99
--- NOTE | 2021-01-10 14:58 | PM.IMPN ---
Progress Note: A&P Assessment and Plan (1) Abscess, renal/perirenal: Code(s): N15.1 - Renal and perinephric abscess Status: Acute Assessment and Plan: CT abdomen/pelvis showed left-sided pyelonephritis with perihilar renal abscess without significant drainable fluid component. Fevers resolved. Repeat CT scan today showed slight interval improvement Appreciate urology consultation Continue IV ertapenem; started on 01/05/21 Seen in consultation by Infectious Disease, input appreciated. Recommend continuing IV ertapenem through 01/26/2021. Care coordination following and PICC line with home infusions being arranged. She will need outpatient Urology follow-up for repeat imaging as an outpatient Initial urine culture collected on 12/30 with ESBL. Subsequent urine culture negative. (2) Pyelonephritis: Code(s): N12 - Tubulo-interstitial nephritis, not specified as acute or chronic Status: Acute Assessment and Plan: Plan as above (3) Septicemia: Code(s): A41.9 - Sepsis, unspecified organism Status: Acute Assessment and Plan: Blood cultures collected 01/05/2021 with growth of ESBL in 2/2 bottles. Patient septic on admission with fever, tachycardia, tachypnea, and leukocytosis. Source of infection felt to be renal abscess/pyelonephritis. Sepsis has resolved. Continue with ertapenem through 01/26/2021 as above Infectious disease consultation appreciated (4) Diabetes mellitus: Code(s): E11.9 - Type 2 diabetes mellitus without complications Status: Acute Assessment and Plan: A1c is 9.3. Continue Accu-Cheks, sliding scale insulin, hypoglycemic protocol Continue Lantus 10 units daily while hospitalized Home glimepiride, sitagliptin, and metformin on hold (5) Hyperlipidemia: Code(s): E78.5 - Hyperlipidemia, unspecified Status: Acute Assessment and Plan: LFTs within normal limits. Continue simvastatin. Subjective Date/time seen: 01/10/21 14:58 Interval history: Date of service: 01/10/2021 Maylin Lau is a 55-year-old female with history of diabetes mellitus and hyperlipidemia who is seen in follow-up for renal abscess. She is feeling better today. Her pain has improved and she is only having occasional left-sided pain which resolves with medications. No headache today. No nausea, vomiting, fever, chills. She denies any urinary symptoms. Her last bowel movement was several days ago. She has been eating and drinking well. She has no additional concerns at this time she is [place] discharge home. Patient speaks Guinean only. Interview performed with assistance of conference interpreter via video chat. At the patient's request, I spoke with her daughter via phone to provide updates answer questions. Review of Systems Review of Systems: All systems reviewed & are unremarkable except as noted in HPI and below Exam Narrative: Ms. Lau is a well-nourished, well-appearing 55-year-old female who is sitting up in bed. She appears comfortable and is in NARD. Neuro: awake, alert and oriented x4, speech clear, no focal neuro deficits noted HEENMT: normocephalic, atraumatic, EOMI, sclerae anicteric Neck: supple, no lymphadenopathy Respiratory: clear to auscultation bilaterally, nonlabored breathing Cardio: regular rate, regular rhythm with S1-S2 Abdomen: nondistended, normoactive bowel sounds, soft, nontender to palpation : No CVA tenderness, left flank mildly tender to palpation Extremities: no edema, erythema, or tenderness to palpation, DP pulses 2+ bilaterally Skin: no rashes or lesions, warm and dry Psych: appropriate mood and affect, judgment and insight intact Objective Data Vital Signs Vital Signs: Vital Signs - 24 hr 01/09/21 20:00 01/09/21 21:53 01/10/21 06:45 Temperature 98.6 F 98.4 F Pulse Rate 62 62 64 Respiratory Rate 16 16 18 Blood Pressure 126/61 130/60 Pulse Oximetry 100 100 98
[2021-01-10 16:55] LABS: Glucose Point of Care 173 mg/dl (65-105)
[2021-01-10 19:39] VITALS: BP 129/69; PULSE 61; RESP 18; TEMP 36.1; O2SAT 96
[2021-01-10 19:40] VITALS: O2SAT 97
[2021-01-10 20:00] VITALS: PULSE 61; RESP 18; O2SAT 96
[2021-01-10 21:02] LABS: Glucose Point of Care 233 mg/dl (65-105)
[2021-01-11] MEDS: ERTAPENEM 1 GM/NS 50 ML 1 GM/50 ML BAG IVPB (04:55)
[2021-01-11 04:59] VITALS: BP 122/62; PULSE 62; RESP 18; TEMP 36.8; O2SAT 98
[2021-01-11] MEDS: oxyCODONE/ACETAMINOPHEN (*CRX) 5-325 MG TABLET 1 TABLET PO ×2 (05:20→19:13)
[2021-01-11 08:10] LABS: Glucose Point of Care 149 mg/dl (65-105)
[2021-01-11] MEDS: INSULIN GLARGINE (*BKC) 100 UNITS/ML 10 UNITS SUB-Q ×2 (08:50→16:44)
[2021-01-11] MEDS: FAMOTIDINE 10 MG TABLET PO ×2 (08:51→20:01)
[2021-01-11] MEDS: ENOXAPARIN 40 MG/0.4 ML SYRINGE SUB-Q (08:51)
[2021-01-11] MEDS: SIMVASTATIN 20 MG TABLET PO (08:51)
[2021-01-11 12:19] LABS: Glucose Point of Care 223 mg/dl (65-105)
[2021-01-11] MEDS: INSULIN ASPART (*BKC) 100 UNITS/ML SUB-Q (12:37)
[2021-01-11 14:00] VITALS: BP 111/68; PULSE 63; RESP 18; TEMP 36.6; O2SAT 98
--- NOTE | 2021-01-11 16:50 | PM.IMPN ---
Progress Note: A&P Assessment and Plan (1) Abscess, renal/perirenal: Code(s): N15.1 - Renal and perinephric abscess Status: Acute Assessment and Plan: CT abdomen/pelvis showed left-sided pyelonephritis with perihilar renal abscess without significant drainable fluid component. Fevers resolved. Repeat CT scan on 01/10 showed slight interval improvement Appreciate urology consultation Continue IV ertapenem; started on 01/05/21 Seen in consultation by Infectious Disease, input appreciated. Recommend continuing IV ertapenem through 01/26/2021. Care coordination following, awaiting insurance authorization to proceed with home infusions. PICC line to be placed pending insurance auth She will need outpatient Urology follow-up for repeat imaging Initial urine culture collected on 12/30 with ESBL. Subsequent urine culture negative. (2) Pyelonephritis: Code(s): N12 - Tubulo-interstitial nephritis, not specified as acute or chronic Status: Acute Assessment and Plan: Plan as above (3) Septicemia: Code(s): A41.9 - Sepsis, unspecified organism Status: Acute Assessment and Plan: Blood cultures collected 01/05/2021 with growth of ESBL in 2/2 bottles. Patient septic on admission with fever, tachycardia, tachypnea, and leukocytosis. Source of infection felt to be renal abscess/pyelonephritis. Sepsis has resolved. Continue with ertapenem through 01/26/2021 as above Infectious disease consultation appreciated (4) Diabetes mellitus: Code(s): E11.9 - Type 2 diabetes mellitus without complications Status: Acute Assessment and Plan: A1c is 9.3. Blood sugars slightly elevated today up to 220 Continue Accu-Cheks, sliding scale insulin, hypoglycemic protocol Increased Lantus to 15 units daily while hospitalized Home glimepiride, sitagliptin, and metformin on hold (5) Hyperlipidemia: Code(s): E78.5 - Hyperlipidemia, unspecified Status: Acute Assessment and Plan: LFTs within normal limits. Continue simvastatin. Subjective Date/time seen: 01/11/21 16:50 Interval history: Date of service: 01/11/2021 Maylin Lau is a 55-year-old female with history of diabetes mellitus and hyperlipidemia who is seen in follow-up for renal abscess. She is doing well today. She has only minimal left flank pain. No urinary symptoms. No nausea, vomiting, fever, chills. Appetite has been good. No shortness of breath, cough, or chest pain. She did have a bowel movement today. She is very eager for discharge home. Patient speaks Estonian only. Interview performed with assistance of surface grinder tender via video chat. Review of Systems Review of Systems: All systems reviewed & are unremarkable except as noted in HPI and below Exam Narrative: Ms. Lau is a well-nourished, well-appearing 55-year-old female who is sitting up in bed. She appears comfortable and is in NARD. Neuro: awake, alert and oriented x4, speech clear, no focal neuro deficits noted HEENMT: normocephalic, atraumatic, EOMI, sclerae anicteric Neck: supple, no lymphadenopathy Respiratory: clear to auscultation bilaterally, nonlabored breathing Cardio: regular rate, regular rhythm with S1-S2 Abdomen: nondistended, normoactive bowel sounds, soft, nontender to palpation : No CVA tenderness, left flank mildly tender to palpation Extremities: no edema, erythema, or tenderness to palpation, DP pulses 2+ bilaterally Skin: no rashes or lesions, warm and dry Psych: appropriate mood and affect, judgment and insight intact Objective Data Vital Signs Vital Signs: Vital Signs - 24 hr 01/10/21 19:39 01/10/21 19:40 01/10/21 20:00 Temperature 97 F L Pulse Rate 61 61 Respiratory Rate 18 18 Blood Pressure 129/69 Pulse Oximetry 96 97 96 01/11/21 04:59 01/11/21 14:00 Temperature 98.2 F 97.8 F Pulse Rate 62 63 Respiratory Rate 18 18 Blood Pressure 122/62 111/68
[2021-01-11 17:13] LABS: Glucose Point of Care 186 mg/dl (65-105)
[2021-01-11 19:38] VITALS: BP 130/68; PULSE 64; RESP 18; TEMP 36.4; O2SAT 100
[2021-01-11 21:09] LABS: Glucose Point of Care 201 mg/dl (65-105)
[2021-01-12 05:11] VITALS: BP 117/67; PULSE 60; RESP 18; TEMP 36.4; O2SAT 97
[2021-01-12] MEDS: ERTAPENEM 1 GM/NS 50 ML 1 GM/50 ML BAG IVPB (05:12)
[2021-01-12 06:31] LABS: Anion Gap 13 mmol/L (8-16); Blood Urea Nitrogen 11 mg/dL (7-17); Calcium 9.4 mg/dL (8.4-10.2); Carbon Dioxide 23 mmol/L (22-30); Chloride 105 mmol/L (98-107); Estimated CRCL calculation 97 ml/min; Estimated Glomerular Filt Rate > 60; Glucose 157 mg/dL (65-110); Potassium 4.3 mmol/L (3.4-5.0); Sodium 141 mmol/L (137-145)
[2021-01-12 08:15] LABS: Glucose Point of Care 156 mg/dl (65-105)
[2021-01-12] MEDS: FAMOTIDINE 10 MG TABLET PO (08:26)
[2021-01-12] MEDS: INSULIN GLARGINE (*BKC) 100 UNITS/ML 15 UNITS SUB-Q (08:26)
[2021-01-12] MEDS: SIMVASTATIN 20 MG TABLET PO (08:26)
[2021-01-12] MEDS: ENOXAPARIN 40 MG/0.4 ML SYRINGE SUB-Q (08:26)
--- NOTE | 2021-01-12 09:26 | CONS_ITS ---
DATE OF CONSULTATION: 01/10/2021 REASON FOR CONSULTATION: Renal abscess and bacteremia. HISTORY OF PRESENT ILLNESS: A 55-year-old female who was originally admitted to the hospital on January 05, with left lower quadrant abdominal pain as well as fever. She has had a urine culture 6 days prior that grew an ESBL producing E. coli. She also had nausea, vomiting, flank pain, and chills. She had an abnormal CT and leukocytosis was admitted. She has been on ertapenem and consultation now requested. She is feeling better, though her abdominal pain is not yet gone. No nausea or vomiting while here. ALLERGIES: NONE KNOWN. HABITS: No tobacco. No alcohol. PRESENT MEDICATIONS: List reviewed. No immunosuppressants. PAST MEDICAL HISTORY: Diabetes and hyperlipidemia. No previous or operations. FAMILY HISTORY: Not pertinent to her present illness. SOCIAL HISTORY: The patient lives locally. Does not work outside the home. REVIEW OF SYSTEMS: , constitutional, skin, musculoskeletal, GI otherwise negative. PHYSICAL EXAMINATION: GENERAL: Middle-aged female appears her actual age. No acute distress. VITAL SIGNS: On arrival here at 39.5, up to 39.6 several hours later. She has been afebrile since a temperature is 39.2 three days ago, 64, 18, 130/60, 98% room air. SKIN: Warm and dry. EENT: The conjunctivae are normal. Petechiae are absent. Mucous membranes well hydrated. NECK: No meningismus. LUNGS: Clear to auscultation and percussion. BACK: Mild left CVAT. No spinal tenderness. CARDIAC: Regular rate and rhythm. No murmur, gallop. ABDOMEN: Mild tenderness in the left anterior flank area. No guarding. She has no organomegaly. No masses. EXTREMITIES: Well perfused. No clubbing, cyanosis, or edema. LABORATORY DATA: Urine culture from December 30 as above. Blood cultures at this time, no growth final. On return, blood cultures 2/2 sets, same organism. Urine culture, which was obtained the day after admission, final no growth. White blood cell count 4.2. Remainder a CBC is normal with 17.2 on admission. She has mild hyponatremia. BUN and creatinine normal to low. Accu-Cheks 100 to 200s. A1c 9.3%. Transaminases initially slightly high and a normal CRP 21. Urinalysis, multiple abnormalities, which are reviewed. RADIOLOGY: CT the abdomen and pelvis performed today shows left-sided pyelonephritis and kidney abscess with slight interval improvement. Other findings as noted. ASSESSMENT: 1. Extended-spectrum beta-lactamases producing Escherichia. coli, with a bloodstream infection due to urinary source. I suspect original episode of cystitis then ascending infection causing pyelonephritis and small renal abscess. She has not required any surgical intervention for the latter and is improving, but not resolved. 2. Diabetes mellitus, not well controlled as an outpatient. RECOMMENDATIONS: 1. Continue ertapenem through January 26. This will complete 21 days of treatment as suggested by Urology team. 2. Follow up with Urology regarding any additional measures. 3. Okay with me for discharge planning. Thank you for asking me to see her. Call if further questions. AYANA OTERO M.D. PORT[facility]IO MGR PORT[facility]IO MGR D I MT: Ralph
[2021-01-12] MEDS: LIDOCAINE HCL 1% LOCAL INJ 2 ML AMPUL 5 ML INFILTRATE (11:40)
[2021-01-12 12:25] LABS: Glucose Point of Care 179 mg/dl (65-105)
--- NOTE | 2021-01-12 13:36 | PM.DS ---
DS: Admitting Diagnosis Discharge Date 01/12/2021 Admitting Diagnosis Renal abscess, pyelonephritis DS: Discharge Diagnosis Discharge Diagnosis (1) Abscess, renal/perirenal: Code(s): N15.1 - Renal and perinephric abscess Status: Acute Assessment and Plan: CT abdomen/pelvis showed left-sided pyelonephritis with perihilar renal abscess without significant drainable fluid component. She was febrile with T-max 103.2?. Appreciate urology consultation Received IV ertapenem; started on 01/05/21 Seen in consultation by Infectious Disease, input appreciated. Recommend continuing IV ertapenem through 01/26/2021. Care coordination following and arrange home health for infusions. Midline catheter placed on 01/12/2021. Home health will begin fusions on 01/13/[address] scan on 01/10 showed slight interval improvement Supportive care provided. Fevers resolved. She will need outpatient Urology follow-up for repeat imaging Initial urine culture collected on 12/30 with ESBL. Subsequent urine culture negative. (2) Pyelonephritis: Code(s): N12 - Tubulo-interstitial nephritis, not specified as acute or chronic Status: Acute Assessment and Plan: Plan as above (3) Septicemia: Code(s): A41.9 - Sepsis, unspecified organism Status: Acute Assessment and Plan: Resolved. Blood cultures collected 01/05/2021 with growth of ESBL in 2/2 bottles. Patient septic on admission with fever, tachycardia, tachypnea, and leukocytosis. Source of infection felt to be renal abscess/pyelonephritis. Continue with ertapenem through 01/26/2021 as above Infectious disease a urology consultation appreciated (4) Diabetes mellitus: Code(s): E11.9 - Type 2 diabetes mellitus without complications Status: Acute Assessment and Plan: A1c is 9.3. Accu-Cheks, sliding scale insulin, hypoglycemic protocol implemented during hospitalization Received Lantus 15 units hospital stay Home regimen including glimepiride, Januvia, metformin, and Levemir continued on discharge (5) Hyperlipidemia: Code(s): E78.5 - Hyperlipidemia, unspecified Status: Acute Assessment and Plan: LFTs within normal limits. Continue simvastatin. DS: Summary Hospital Course Hospital Course: Date of admission: 01/05/2021 Date of discharge: 01/12/2021 Maylin Lau is a 55-year-old female with history of diabetes mellitus and hyperlipidemia who presented to the emergency department on 01/05/2021 with complaints of left flank pain and back pain after having been diagnosed with UTI 1 week prior. She had been on Bactrim but did not have improvement. On presentation to the emergency department, her vital signs are stable, she was afebrile, WBC 17.2, and CT abdomen/pelvis showed left-sided pyelonephritis with 8 mm perihilar renal abscess. She was admitted to the hospitalist service for further evaluation and management and seen in consultation by Urology and Infectious Disease. Please see above for further details. She was treated for renal abscess and septicemia with IV ertapenem which she will continue through 01/26/2021. Her symptoms improved significantly with only very mild lingering left flank pain. Given her overall improvement, she was determined to no longer require inpatient care and was felt to be stable for discharge. We discussed worrisome signs and symptoms for which to return and she was educated on her medications. Patient spoke only Turkish, therefore all conversations had with the assistance of a video wire frame dipper. At the patient's request, I spoke with her daughter, Alfreda, via phone to reiterate discharge information to her. She was discharged in hemodynamically stable condition on 01/12/2021. Status at Discharge Functional status at discharge: independent ambulation Overall status at discharge: patient is progressing back to baseline Time Spent with Patient T
[2021-01-12] MEDS: SALINE LOCK FLUSH 10 ML IV PUSH (13:47)
[2021-01-12 14:00] VITALS: BP 150/67; PULSE 68; RESP 16; TEMP 36.4; O2SAT 99
== END 2021-01-12 15:55 | disposition home health service (06) | DRG 720 ==
LOC: ANHED 08:01 → ANH3MED 08:38
PROVIDERS: Admitting Provider Hospitalist; Emergency Provider Emergency Medicine; PCP Physician Assistant; Visit Provider Physician Assistant
DX: A41.51 Sepsis due to Escherichia coli [E. coli] (principal); N15.1 Renal and perinephric abscess; N10 Acute pyelonephritis; E78.5 Hyperlipidemia, unspecified; E11.65 Type 2 diabetes mellitus with hyperglycemia; D72.829 Elevated white blood cell count, unspecified
CPT/HCPCS: 36415; 36569; 74177; 80048; 80053; 80061; 81001; 82948; 83036; 83605; 83690; 83735; 85025; 85027; 86140; 87040; 87077; 87086; 87186; 93971; 96361; 96365; 96372; 96375; 97161; 97165; 99285; A9270; C1751; G0378; G0379; J1170; J1335; J1650; J1815; J2270; J2405; J7030; Q9967

== ENCOUNTER 2021-02-02 12:50 | Outpatient (RCR) | payer OTHER, SELFPAY ==
[2021-01-16 12:38] LABS: Hematocrit 39.4 % (37.0-47.0); Hemoglobin 13.4 g/dL (12.0-15.0); Mean Corpuscular Hemoglobin 29.8 pg (26-34); Mean Corpuscular Volume 87.8 fl (80-100); Mean Platelet Volume 9.6 fl (7.4-10.4); Platelet Count Result 377 k/mm3 (150-375); Red Blood Count 4.49 M/mm3 (4.2-5.4); Red Cell Distribution Width 12.6 % (11.5-14.5); White Blood Count 5.2 K/mm3 (4.5-10.0)
[2021-01-16 12:55] LABS: Anion Gap 7 mmol/L (8-16); Blood Urea Nitrogen 9 mg/dL (7-17); CRP 0.9 mg/dL (<1.0); Calcium 9.2 mg/dL (8.4-10.2); Carbon Dioxide 26 mmol/L (22-30); Chloride 106 mmol/L (98-107); Estimated Glomerular Filt Rate > 60; Glucose 132 mg/dL (65-110); Potassium 4.2 mmol/L (3.4-5.0); Sodium 139 mmol/L (137-145)
[2021-01-19 13:45] LABS: Basophils Absolute Auto 0.1 K/mm3 (0.0-0.1); Basophils Percent Auto 0.9 % (0.2-1.2); Eosinophils Absolute Auto 0.1 K/mm3 (0-0.3); Eosinophils Percent Auto 2.4 % (0-4.4); Hematocrit 40.5 % (37.0-47.0); Hemoglobin 13.7 g/dL (12.0-15.0); Immature Granulocyte Absolute 0.01 K/mm3 (0.00-0.031); Immature Granulocyte Percent A 0.2 % (0-0.5); Lymphocytes Absolute Auto 2.24 K/mm3 (0.9-3.2); Lymphocytes Percent Auto 41.2 % (18.3-44.2); Mean Corpuscular HGB Conc 33.8 g/dl (32-36); Mean Corpuscular Hemoglobin 30.2 pg (26-34); Mean Corpuscular Volume 89.4 fl (80-100); Monocytes Absolute Auto 0.4 K/mm3 (0.1-0.6); Monocytes Percent Auto 7.5 % (2.6-8.5); Neutrophils Absolute Auto 2.6 K/mm3 (1.3-6.7); Neutrophils Percent Auto 47.8 % (45.5-73.1); Platelet Count Result 366 k/mm3 (150-375); Red Blood Count 4.53 M/mm3 (4.2-5.4); Red Cell Distribution Width 12.8 % (11.5-14.5); White Blood Count 5.4 K/mm3 (4.5-10.0)
[2021-01-19 13:52] LABS: Anion Gap 12 mmol/L (8-16); Blood Urea Nitrogen 11 mg/dL (7-17); Calcium 9.3 mg/dL (8.4-10.2); Carbon Dioxide 23 mmol/L (22-30); Chloride 103 mmol/L (98-107); Estimated Glomerular Filt Rate > 60; Glucose 284 mg/dL (65-110); Potassium 4.1 mmol/L (3.4-5.0); Sodium 138 mmol/L (137-145)
[2021-01-23 12:02] LABS: Basophils Absolute Auto 0.1 K/mm3 (0.0-0.1); Basophils Percent Auto 1.1 % (0.2-1.2); Eosinophils Absolute Auto 0.1 K/mm3 (0-0.3); Eosinophils Percent Auto 3.1 % (0-4.4); Hematocrit 39.2 % (37.0-47.0); Hemoglobin 13.3 g/dL (12.0-15.0); Immature Granulocyte Absolute 0.01 K/mm3 (0.00-0.031); Immature Granulocyte Percent A 0.2 % (0-0.5); Lymphocytes Absolute Auto 2.07 K/mm3 (0.9-3.2); Lymphocytes Percent Auto 45.4 % (18.3-44.2); Mean Corpuscular HGB Conc 33.9 g/dl (32-36); Mean Corpuscular Hemoglobin 29.3 pg (26-34); Mean Corpuscular Volume 86.3 fl (80-100); Mean Platelet Volume 10.4 fl (7.4-10.4); Monocytes Absolute Auto 0.4 K/mm3 (0.1-0.6); Monocytes Percent Auto 9.2 % (2.6-8.5); Neutrophils Absolute Auto 1.9 K/mm3 (1.3-6.7); Platelet Count Result 335 k/mm3 (150-375); Red Blood Count 4.54 M/mm3 (4.2-5.4); Red Cell Distribution Width 12.9 % (11.5-14.5); White Blood Count 4.6 K/mm3 (4.5-10.0)
[2021-01-23 12:21] LABS: Anion Gap 11 mmol/L (8-16); Blood Urea Nitrogen 12 mg/dL (7-17); CRP 0.9 mg/dL (<1.0); Calcium 9.6 mg/dL (8.4-10.2); Carbon Dioxide 26 mmol/L (22-30); Chloride 104 mmol/L (98-107); Estimated Glomerular Filt Rate > 60; Glucose 140 mg/dL (65-110); Sodium 141 mmol/L (137-145)
[2021-01-26 10:41] LABS: Basophils Percent Auto 0.8 % (0.2-1.2); Eosinophils Absolute Auto 0.2 K/mm3 (0-0.3); Eosinophils Percent Auto 3.2 % (0-4.4); Hematocrit 40.1 % (37.0-47.0); Hemoglobin 13.4 g/dL (12.0-15.0); Immature Granulocyte Absolute 0.02 K/mm3 (0.00-0.031); Immature Granulocyte Percent A 0.4 % (0-0.5); Lymphocytes Absolute Auto 2.33 K/mm3 (0.9-3.2); Mean Corpuscular HGB Conc 33.4 g/dl (32-36); Mean Corpuscular Hemoglobin 29.8 pg (26-34); Mean Corpuscular Volume 89.1 fl (80-100); Mean Platelet Volume 10.1 fl (7.4-10.4); Monocytes Absolute Auto 0.5 K/mm3 (0.1-0.6); Monocytes Percent Auto 9.1 % (2.6-8.5); Neutrophils Absolute Auto 2.1 K/mm3 (1.3-6.7); Neutrophils Percent Auto 40.5 % (45.5-73.1); Platelet Count Result 275 k/mm3 (150-375); Red Cell Distribution Width 12.8 % (11.5-14.5); White Blood Count 5.1 K/mm3 (4.5-10.0)
[2021-01-26 11:02] LABS: Anion Gap 10 mmol/L (8-16); Blood Urea Nitrogen 11 mg/dL (7-17); Calcium 9.4 mg/dL (8.4-10.2); Carbon Dioxide 24 mmol/L (22-30); Chloride 106 mmol/L (98-107); Estimated Glomerular Filt Rate > 60; Glucose 116 mg/dL (65-110); Sodium 140 mmol/L (137-145)
[2021-01-30 16:12] LABS: Basophils Percent Auto 0.5 % (0.2-1.2); Eosinophils Absolute Auto 0.2 K/mm3 (0-0.3); Eosinophils Percent Auto 2.9 % (0-4.4); Hematocrit 37.9 % (37.0-47.0); Lymphocytes Absolute Auto 2.12 K/mm3 (0.9-3.2); Lymphocytes Percent Auto 36.6 % (18.3-44.2); Mean Corpuscular HGB Conc 34.3 g/dl (32-36); Mean Corpuscular Volume 87.5 fl (80-100); Mean Platelet Volume 10.4 fl (7.4-10.4); Monocytes Absolute Auto 0.5 K/mm3 (0.1-0.6); Monocytes Percent Auto 8.6 % (2.6-8.5); Neutrophils Percent Auto 51.4 % (45.5-73.1); Platelet Count Result 229 k/mm3 (150-375); Red Blood Count 4.33 M/mm3 (4.2-5.4); Red Cell Distribution Width 12.9 % (11.5-14.5); White Blood Count 5.8 K/mm3 (4.5-10.0)
[2021-01-30 19:06] LABS: Anion Gap 8 mmol/L (8-16); Blood Urea Nitrogen 13 mg/dL (7-17); CRP < 0.5 mg/dL (<1.0); Calcium 9.1 mg/dL (8.4-10.2); Carbon Dioxide 28 mmol/L (22-30); Chloride 101 mmol/L (98-107); Estimated Glomerular Filt Rate > 60; Glucose 249 mg/dL (65-110); Potassium 3.8 mmol/L (3.4-5.0); Sodium 137 mmol/L (137-145)
[2021-02-02 17:53] LABS: Anion Gap 8 mmol/L (8-16); Blood Urea Nitrogen 10 mg/dL (7-17); Calcium 9.7 mg/dL (8.4-10.2); Carbon Dioxide 27 mmol/L (22-30); Chloride 102 mmol/L (98-107); Estimated Glomerular Filt Rate > 60; Glucose 178 mg/dL (65-110); Sodium 137 mmol/L (137-145)
[2021-02-03 08:32] LABS: Basophils Percent Auto 0.6 % (0.2-1.2); Eosinophils Absolute Auto 0.2 K/mm3 (0-0.3); Eosinophils Percent Auto 3.3 % (0-4.4); Hematocrit 41.1 % (37.0-47.0); Hemoglobin 13.7 g/dL (12.0-15.0); Immature Granulocyte Absolute 0.01 K/mm3 (0.00-0.031); Immature Granulocyte Percent A 0.2 % (0-0.5); Lymphocytes Absolute Auto 2.17 K/mm3 (0.9-3.2); Lymphocytes Percent Auto 34.4 % (18.3-44.2); Mean Corpuscular HGB Conc 33.3 g/dl (32-36); Mean Corpuscular Hemoglobin 30.1 pg (26-34); Mean Corpuscular Volume 90.3 fl (80-100); Mean Platelet Volume 10.9 fl (7.4-10.4); Monocytes Absolute Auto 0.5 K/mm3 (0.1-0.6); Monocytes Percent Auto 8.6 % (2.6-8.5); Neutrophils Absolute Auto 3.3 K/mm3 (1.3-6.7); Neutrophils Percent Auto 52.9 % (45.5-73.1); Platelet Count Result 219 k/mm3 (150-375); Red Blood Count 4.55 M/mm3 (4.2-5.4); Red Cell Distribution Width 13.3 % (11.5-14.5); White Blood Count 6.3 K/mm3 (4.5-10.0)
== END 2021-04-16 23:59 | disposition home or self-care (01) ==
LOC: HOME HLTH 12:50
PROVIDERS: PCP Physician Assistant; Visit Provider Internal Medicine Infectious Disease
DX: A41.9 Sepsis, unspecified organism (principal)
CPT/HCPCS: 80048; 85025; 85027; 86140

== ENCOUNTER 2021-02-20 16:35 | Emergency (ER) | payer OTHER, SELFPAY ==
[2021-02-20] VITALS (9 sets, daily range): BP systolic 109–149; BP diastolic 79–92; PULSE 79–88; RESP 16–18; TEMP 36.6; O2SAT 94–100
--- NOTE | ~2021-02-20 | CT_ITS ---
EXAMINATION: CT abdomen pelvis w con DATE: 02/20/2021 19:05 INDICATION: Low back pain TECHNIQUE: Computed tomography (CT) of the abdomen and pelvis was performed with 100 cc Omnipaque 350 intravenous contrast. The dose-length product was 599.11 mGy-cm. Automated exposure control and iter ative reconstruction technique were employed. COMPARISON: CT dated 02/20/2021. FINDINGS: Lung bases unremarkable. Heart size normal. No significant pleural or pericardial effusion. Fatty infiltration of the liver. The spleen, pancreas, adrenal glands and kidneys are unremarkable. Gallbladder is present. Normal appendix. Nonobstructive bowel gas pattern. No free air or free fluid. No acute osseous abnormality. IMPRESSION: 1. No acute abdominal abnormality. Reviewed, dictated and finalized at location A.
--- NOTE | ~2021-02-20 | CT_ITS ---
EXAMINATION: CT abdomen pelvis wo con DATE: 02/20/2021 17:49 INDICATION: Low back pain. Kidney infection. TECHNIQUE: Computed tomography (CT) of the abdomen and pelvis was performed without intravenous contr ast. The dose-length product was 649.17 mGy-cm. Automated exposure control and iterative reconstructi on technique were employed. COMPARISON: CT dated 01/10/2021. FINDINGS: Lung bases are unremarkable. No significant pleural or pericardial effusion. The liver, spl een, pancreas, adrenal glands and kidneys are unremarkable. No renal/ureteral stones are identified. No hydronephrosis. Bladder is unremarkable. Nonobstructive bowel gas pattern. Gallbladder is present. No free air or free fluid. No acute osseous abnormality. IMPRESSION: 1. No acute abdominal abnormality. Reviewed, dictated and finalized at location A.
[2021-02-20 17:46] LABS: Add Urine Microscopic? YES; Appearance Urine Clear (Clear); Bilirubin Urine Negative (Negative); Blood Urine Negative (Negative); Color Urine Colorless (Yellow); Glucose Urine UA 3+ mg/dL (Negative); Ketones Urine Negative (Negative); Leukocyte Esterase Ur Negative LEU/UL (Negative); Mucus Urine Rare /lpf; Nitrate Urine Negative (Negative); Protein Urine Negative (Negative); RBC Urine 0-2 /hpf (0-2); Specific Grav Ur 1.006 (1.001-1.035); Urobilinogen Urine Negative mg/dL (<2.0); WBC Urine 0-3 /hpf
--- NOTE | 2021-02-20 17:49 | ED.GENADULT ---
HPI - General Adult General Chief complaint: Urogenital-Female Stated complaint: ecoli in urine Time Seen by Provider: 02/20/21 17:36 Source: patient Mode of arrival: ambulatory Limitations: no limitations History of Present Illness HPI narrative: Patient is a 55-year-old female who was sent here by her doctor due to urine culture results showing E. coli. Urinalysis was done 2 days ago. Patient states that she was on IV antibiotics due to a kidney infection for 1 month, given through a PICC line. Patient states that her last dose of IV antibiotics was 3 weeks ago but continues to have a PICC line because her doctor wants her to get a CT scan of the kidneys to make sure everything is okay, the reason she has not gotten the scan is because of waiting for insurance approval. Patient has had a PICC line since December. Related Data Home Medications Medication Instructions Recorded Confirmed Januvia 100 mg PO DAILY 01/05/21 01/05/21 Levemir FlexTouch U-100 Insuln 15 unit SUBCUT HS 01/05/21 01/05/21 glimepiride 4 mg PO BID 01/05/21 01/05/21 metformin 1,000 mg PO BID 01/05/21 01/05/21 simvastatin 20 mg PO DAILY 01/05/21 01/05/21 Allergies Allergy/AdvReac Type Severity Reaction Status Date / Time No Known Allergies Allergy Verified 02/20/21 17:42 Review of Systems Review of Systems: All systems reviewed & are unremarkable except as noted in HPI and below Constitutional: Constitutional: Denies body ache(s), Denies chills, Denies excessive sweating, Denies fatigue, Denies fever(s), Denies headache(s), Denies lethargy, Denies malaise, Denies weakness and Denies weight loss Eyes: Eyes: Denies blurry vision, Denies change in vision and Denies loss of vision ENT: Denies dizziness, Denies ear discharge, Denies headache(s), Denies lip swelling, Denies epistaxis, Denies nasal congestion, Denies neck pain, Denies throat swelling and Denies tongue swelling Cardiovascular: Cardiovascular: Denies chest pain, Denies chest pain at rest, Denies chest pain with activity, Denies diaphoresis, Denies rapid heart rate, Denies edema, Denies irregular heart rhythm, Denies lightheadedness, Denies palpitations, Denies dyspnea and Denies dyspnea on exertion Respiratory: Respiratory: Denies chest congestion, Denies cough, Denies hemoptysis, Denies dyspnea and Denies dyspnea on exertion Gastrointestinal: Gastrointestinal: Denies abdominal pain, Denies melena, Denies hematochezia, Denies diarrhea, Denies nausea, Denies vomiting and Denies hematemesis Musculoskeletal: Musculoskeletal: Denies abnormal gait, Reports back pain, Denies deformity, Denies joint swelling, Denies limited range of motion, Denies neck pain and Denies numbness Neurologic: Denies Abnormal speech present, Denies abnormal gait, Denies confusion, Denies dizziness, Denies headache(s), Denies focal weakness, Denies loss of vision, Denies numbness, Denies Other visual disturbances, Denies Sensory deficit (Neuro) and Denies weakness Psychiatric: Psychiatric: Denies confusion, Denies depression, Denies auditory hallucinations, Denies homicidal ideation and Denies suicidal ideation Endocrine: Endocrine: Denies cold intolerance, Denies excessive sweating, Denies fatigue, Denies heat intolerance and Denies palpitations Hematologic/Lymphatic: Hematologic/Lymphatic: Denies easy bleeding and Denies easy bruising Allergic/Immunologic: Allergic/Immunologic: Denies lip swelling, Denies throat swelling and Denies tongue swelling PMFSH Past Medical History Medical History (Updated 02/20/21 @ 19:50 by Jacob Alvarenga MD) History of miscarriage Family History Family History (Updated 01/05/21 @ 19:59 by Columba Mireles MD) Other Cancer Social History Social History Smoking status: Never smoker Second hand tobacco smoke exposure: No Alcohol intake: never Substance use: never Spiritual care concerns: No Comments Past
[2021-02-20 18:33] LABS: Basophils Percent Auto 0.6 % (0.2-1.2); Eosinophils Absolute Auto 0.2 K/mm3 (0-0.3); Eosinophils Percent Auto 2.6 % (0-4.4); Hemoglobin 13.7 g/dL (12.0-15.0); Immature Granulocyte Absolute 0.01 K/mm3 (0.00-0.031); Immature Granulocyte Percent A 0.2 % (0-0.5); Lymphocytes Absolute Auto 2.72 K/mm3 (0.9-3.2); Lymphocytes Percent Auto 43.4 % (18.3-44.2); Mean Corpuscular HGB Conc 34.3 g/dl (32-36); Mean Corpuscular Hemoglobin 29.8 pg (26-34); Mean Corpuscular Volume 87.1 fl (80-100); Mean Platelet Volume 10.1 fl (7.4-10.4); Monocytes Absolute Auto 0.5 K/mm3 (0.1-0.6); Monocytes Percent Auto 8.5 % (2.6-8.5); Neutrophils Absolute Auto 2.8 K/mm3 (1.3-6.7); Neutrophils Percent Auto 44.7 % (45.5-73.1); Platelet Count Result 246 k/mm3 (150-375); Red Blood Count 4.59 M/mm3 (4.2-5.4); Red Cell Distribution Width 12.5 % (11.5-14.5); White Blood Count 6.3 K/mm3 (4.5-10.0)
[2021-02-20 18:37] LABS: Lactic Acid Reflex 1.5 mmol/L (0.7-2.1)
[2021-02-20 18:46] LABS: Anion Gap 9 mmol/L (8-16); Blood Urea Nitrogen 12 mg/dL (7-17); Calcium 9.7 mg/dL (8.4-10.2); Carbon Dioxide 25 mmol/L (22-30); Chloride 100 mmol/L (98-107); Estimated CRCL calculation 98 ml/min; Estimated Glomerular Filt Rate > 60; Glucose 267 mg/dL (65-110); Potassium 4.4 mmol/L (3.4-5.0); Sodium 134 mmol/L (137-145)
--- NOTE | 2021-02-20 19:37 | PC.NURSE ---
assumed care of patient no change in status
--- NOTE | 2021-02-20 21:21 | PC.NURSE ---
PICC line left ac Flushed with 10cc ns.
== END 2021-02-20 21:24 | disposition home or self-care (01) ==
PROVIDERS: Emergency Provider Emergency Medicine; PCP Physician Assistant
DX: R10.9 Unspecified abdominal pain (principal); Z79.4 Long term (current) use of insulin; Z79.84 Long term (current) use of oral hypoglycemic drugs
CPT/HCPCS: 36415; 74176; 74177; 74178; 80048; 81001; 83605; 85025; 96365; 99284; J0696; Q9967

== ENCOUNTER 2021-06-20 10:35 | Outpatient (CLI) | payer OTHER, SELFPAY ==
--- NOTE | ~2021-06-20 | XR_ITS ---
EXAMINATION: XR finger 4th RT min 2V INDICATION: Right fourth finger pain TECHNIQUE: Four views of the right fourth finger are obtained. COMPARISON: None available FINDINGS: There is no fracture, dislocation, or subluxation. Mild osteoarthritis is noted in the inte rphalangeal joints. Soft tissues are normal. IMPRESSION: 1. No acute osseous abnormality. Reviewed, dictated and finalized at location F. SKILLS EDUCATOR
--- NOTE | ~2021-06-20 | XR_ITS ---
EXAMINATION: XR hand RT min 3V INDICATION: Right hand pain TECHNIQUE: Three views of the right hand are obtained. COMPARISON: None available FINDINGS: There is no fracture, dislocation, or subluxation. There is mild polyarticular osteoarthrit is of the interphalangeal joints. The soft tissues are unremarkable. IMPRESSION: 1. Polyarticular osteoarthritis without acute osseous abnormality. Reviewed, dictated and finalized at location F. SPRINKLER FITTER
== END 2021-06-20 10:36 | disposition home or self-care (01) ==
PROVIDERS: PCP Physician Assistant; Visit Provider Physician Assistant
DX: M79.641 Pain in right hand (principal); M19.041 Primary osteoarthritis, right hand
CPT/HCPCS: 73130; 73140

== ENCOUNTER 2021-12-26 14:31 | Emergency (ER) | payer OTHER, SELFPAY ==
--- NOTE | ~2021-12-26 | XR_ITS ---
XR shoulder RT min 2V DATE: 12/26/2021 16:44 INDICATION: Shoulder injury, pain TECHNIQUE: 4 views COMPARISON: None FINDINGS: No fracture or dislocation, periosteal reaction or bone destruction or abnormal soft tissue calcification. IMPRESSION: No significant abnormality Reviewed, dictated and finalized at location B. IMPRESSION: No significant abnormality
--- NOTE | ~2021-12-26 | XR_ITS ---
XR lumbar spine 2-3V DATE: 12/26/2021 16:44 INDICATION: Fall. Back injury, pain TECHNIQUE: AP, lateral, coned lateral lumbosacral views COMPARISON: None FINDINGS: There is osteopenia. Mild thoracolumbar levoscoliosis. No fracture or bone destruction is evident. The included lower thoracic and lumbar pedicles are intac t. Lumbar and lumbosacral interspaces are well preserved. There is minimal degenerative spurring of t he lumbar spine. The sacroiliac joints appear normal. There is a prominent amount of fecal material in the colon. IMPRESSION: Osteopenia; no lumbar spine fracture Mild degenerative change Reviewed, dictated and finalized at location B.
--- NOTE | ~2021-12-26 | XR_ITS ---
EXAM: XR elbow RT min 3V DATE: 12/26/2021 16:44 HISTORY: elbow pain s/p fall injury . COMPARISON: None available. FINDINGS: Normal mineralization. No fracture or dislocation. No lytic or blastic lesion. Mild degene rative change of the elbow joint. Medial epicondylar enthesopathy. No erosion or periosteal change. S oft tissues within normal limits. IMPRESSION: No acute osseous finding in the right elbow. Reviewed, dictated and finalized at location K.
[2021-12-26 15:11] VITALS: BP 131/71; PULSE 71; RESP 16; TEMP 36.9; O2SAT 100
--- NOTE | 2021-12-26 16:23 | ED.FALL ---
HPI - Fall General Chief Complaint: Fall Stated Complaint: sick Time Seen by Provider: 12/26/21 15:46 History of Present Illness HPI Narrative: 56-year-old [place]udian-speaking female presents to the emergency room with multiple injuries status post a fall on Saturday. Patient states that she was mopping the floor when she slipped and fell, landing on her lower back, right shoulder, and right elbow. Patient denies taking any medications to alleviate her pain. Patient states the back pain is worse when attempting to bend forward. Shoulder and elbow pain are worse when attempting to move. Related Data Allergies Allergy/AdvReac Type Severity Reaction Status Date / Time No Known Allergies Allergy Verified 12/26/21 15:18 Review of Systems Review of Systems: CONSTITUTIONAL: Denies fever, chills, or sweats. EYES: Denies visual changes, redness, or discharge. ENT: Denies rhinorrhea, congestion, sore throat, or otalgia. CARDIOVASCULAR: Denies chest pain, palpitations, or edema. RESPIRATORY: Denies cough or dyspnea. GASTROINTESTINAL: Denies abdominal pain, nausea, vomiting, or diarrhea. GENITOURINARY: Denies dysuria or hematuria. SKIN: Denies rash or itching. MUSCULOSKELETAL: Reports lower back, right shoulder and right elbow pain NEUROLOGIC: Denies headache, numbness, dizziness, or weakness. PSYCHIATRIC: Denies anxiety or depression. Exam Narrative: GENERAL: Well-appearing, well-nourished, no physical limitations, and in no acute distress. HEAD: Normocephalic, atraumatic. EYES: Conjunctivae normal, PERRLA and EOMI. CHEST: Clear to auscultation. No respiratory distress. No wheezes rales or rhonchi. No tenderness. HEART: Regular rate and rhythm. No murmur heard. Normal peripheral pulses. BACK: Midline lumbar tenderness, no bony abnormality, full range of motion, pain elicited with flexion. No step-offs. Tenderness extends over the right thoracolumbar fascia EXTREMITIES: Right shoulder: Tenderness to the anterior and superior surfaces, full range of motion, no soft tissue swelling or acute bony abnormality. Neurovascular is intact distally. Right elbow: Tenderness over the olecranon process, full range of motion, no bony abnormality. Pain is elicited with extension, pronation, supination. SKIN: Warm, dry, no rash. No noted wounds NEURO: No focal deficits. Alert and oriented x3. MAEW. CN's II-XI intact bilaterally, normal gait PSYCH: Cooperative. Normal mood and affect. Course Vital Signs Vital signs: Vital Signs Temperature 36.9 C 12/26/21 15:11 Pulse Rate 71 12/26/21 15:11 Respiratory Rate 16 12/26/21 15:11 Blood Pressure 131/71 12/26/21 15:11 Pulse Oximetry 100 12/26/21 15:11 Oxygen Delivery Room Air 12/26/21 15:11 Temperature 36.9 C 12/26/21 15:11 Pulse Rate 71 12/26/21 15:11 Respiratory Rate 16 12/26/21 15:11 Blood Pressure 131/71 12/26/21 15:11 Pulse Oximetry 100 12/26/21 15:11 Oxygen Delivery Room Air 12/26/21 15:11 Discharge Plan Discharge Clinical Impression: Acute lumbar myofascial strain, Contusion of right shoulder, Contusion of elbow, right Patient Disposition: Home, Self-Care Condition: Stable Instructions: Antibiotic Form, Low Back Strain (ED), Contusion in Adults (ED) Prescriptions: New naproxen 500 mg tablet 500 mg PO BID Qty: 14 0RF methocarbamol 500 mg tablet 500 mg PO TID Qty: 21 0RF Follow-up/Referrals: Makayla,HEATHER Ferguson [Primary Care Provider] - Time of Disposition: 17:53
[2021-12-26 18:07] VITALS: BP 127/75; PULSE 67; RESP 18; O2SAT 97
== END 2021-12-26 18:09 | disposition home or self-care (01) ==
PROVIDERS: Emergency Provider Nurse Practitioner Family; PCP Physician Assistant
DX: S39.012A Strain of muscle, fascia and tendon of lower back, initial encounter (principal); S40.011A Contusion of right shoulder, initial encounter; S50.01XA Contusion of right elbow, initial encounter; W01.0XXA Fall on same level from slipping, tripping and stumbling without subsequent striking against object, initial encounter
CPT/HCPCS: 72100; 73030; 73080; 99284

== ENCOUNTER 2023-03-12 10:29 | Outpatient (CLI) | payer OTHER, SELFPAY ==
--- NOTE | ~2023-03-12 | XR_ITS ---
XR shoulder RT min 2V DATE: 03/12/2023 11:01 INDICATION: Anterior right shoulder pain TECHNIQUE: 4 views COMPARISON: 12/26/2021 right shoulder FINDINGS: There is mild spurring of the inferior glenoid rim consistent with mild glenohumeral osteoa rthritis. Normal alignment at the acromioclavicular and glenohumeral joints. No fracture or dislocation, periosteal reaction or bone destruction or abnormal soft tissue calcifica tion of the right shoulder. IMPRESSION: Mild glenohumeral osteoarthritis Reviewed, dictated and finalized at location L. 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
== END 2023-03-12 10:30 | disposition home or self-care (01) ==
PROVIDERS: PCP Physician Assistant; Visit Provider Physician Assistant
DX: M19.011 Primary osteoarthritis, right shoulder (principal)
CPT/HCPCS: 73030

== ENCOUNTER 2023-04-23 09:45 | Outpatient (RCR) | payer OTHER, SELFPAY ==
[2023-03-28 08:15] VITALS: BP_SYST 90
--- NOTE | 2023-03-28 09:02 | OPREHPOC ---
Outpatient Therapy Plan of Care This is a Multidisciplinary Plan of Care that may contain components documented by all disciplines (PT, OT, and ST.) PT Problem 1 PT Problem #1 Knowledge Deficit PT Goal 1 Goal 1* indep with HEP 2* use correct posture and body mechanics during sessions PT Problem 2 PT Problem #2 Pain PT Goal 1 Goal 1* pt report pain at worst rating of 4/10 2* pt report with sleeping, awaken 2x/night due to pain PT Problem 3 PT Problem #3 Impaired Flexibility PT Goal 1 Goal increase ROM of R shoulder to improve use of R arm with home tasks: active ROM in standin* flexion 130' 2* abduction 130' 3* IR- reach behind back, palm to waist PT Problem 4 PT Problem #4 Impaired Strength PT Goal 1 Goal increase strength of R shoulder, to improve use of R arm with home tasks: in standing active motion x 5 reps 1* flexion to 90' with 2# hand wt 2* abduction to 90' 3* pt report able to use R arm with light meal prep
--- NOTE | 2023-03-28 09:02 | PTOPEVAL1 ---
Assessment and note entered by Britt Putnam, PT Evaluation Information Assessment Status Evaluation Diagnosis R shoulder pain Onset August 2022 Subjective Information no injury to shoulder, started about 6 months ago; xray: mild spur of inferior glenoid ACTIVITY: not working outside of home, for past few years because of R hand numb; at home- daughter helps her do things- gum cook and stand up from chair; Reported Pain Level Pain Score Self Report Additional Pain Score Comments pain anterior shoulder and lateral humerus, to elbow; R upper traps pain range in the past week 2-8/10 increase with raising arm up, sleeping problems decrease pain: tylenol, rest is not using heat or ice--instruct on PRN use 10- 15 min for pain Assessment PT Clinical Summary Maylin has the diagnosis of R shoulder pain. She reports gradual increase in pain over the past 6 months, with decreased sleeping and activity level Her daughter has to assist her. She speaks Persian and [employer]omi Interpretation service was used during session. She does understand a little [place]. With the evaluation, she has decreased active ROM and strength of R shoulder, with cervical pain and radicular pain to elbow. Tenderness over anterior shoulder and upper traps areas. Skilled PT services are indicated for modalities to decrease pain and spasms, therapeutic exercises to increase ROM and strength with education for HEP and posture. Plan of Care Interventions Electrical Stimulation,Hot Pack/Cold Pack,Manual Therapy,Patient/Caregiver Education,Therapeutic Activities,Therapeutic Exercise,Ultrasound,Other Other Interventions taping, IASTM PT Services Indicated Yes Treatment Frequency and 2x/wk for 4 weeks Duration These treatments will address the objective and functional deficits as defined above. The patient will be advanced safely and appropriately in order for the patient to progress towards his/her prior level of function. Additional exercises will be introduced and as well as a comprehensive home exercise program upon discharge
--- NOTE | 2023-03-28 09:03 | PCPTNOTE ---
pt was 15 min late for eval appt; used certified medical asst Claude for [place].
--- NOTE | 2023-04-18 10:17 | PCPTNOTE ---
Patient no show for today's appointment.
--- NOTE | 2023-04-25 10:05 | PCPTNOTE ---
pt did not show for today's reeval appt; called her and she had the wrong date. Has dr amado May 22- wants to stop therapy until see
--- NOTE | 2023-06-05 10:57 | PTOPDC ---
Assessment and note entered by Britt Putnam, PT Discharge Information Assessment Status Discharge - Pt Not Present Diagnosis R shoulder pain Onset August 2022 Assessment PT Clinical Summary Maylin has had 7 PT sessions, from Mar 28 to Apr 23. She did not show for 2 appointments. Discharge PT due to pt stopped attending. The goals were not addressed. Plan of Care PT Services Indicated No
== END 2023-06-05 11:40 | disposition home or self-care (01) ==
LOC: ANHPT 09:45
PROVIDERS: PCP Physician Assistant; Visit Provider Physician Assistant
DX: M25.511 Pain in right shoulder (principal)
CPT/HCPCS: 97014; 97032; 97110; 97140; 97161; 97530; 97750; 99199; G0283

== ENCOUNTER 2023-06-23 09:49 | Emergency (ER) | payer OTHER, SELFPAY ==
--- NOTE | ~2023-06-23 | XR_ITS ---
XR shoulder RT min 2V 06/23/2023 11:50 Indication: Right shoulder pain Procedure: 4 views right shoulder Comparison: 03/12/2023 Findings: No fracture, subluxation or dislocation. No significant soft tissue abnormality. No foreign bodies. Impression: 1: No acute bone or joint abnormality. Reviewed, dictated and finalized at location A. ENGINEER Impression: 1: No acute bone or joint abnormality.
--- NOTE | ~2023-06-23 | XR_ITS ---
XR shoulder LT min 2V 06/23/2023 11:50 INDICATION: Left shoulder pain PROCEDURE: 4 views left shoulder COMPARISON: No prior studies for comparison. FINDINGS: Fracture, dislocation or subluxation is not identified. Mild polyarticular osteoarthritis. The soft tissues appear within normal limits. No foreign bodies are identified. IMPRESSION: 1: NO ACUTE BONE OR JOINT ABNORMALITY IDENTIFIED. Reviewed, dictated and finalized at location A. ERADISH MAKER
[2023-06-23 09:53] VITALS: BP 125/85; PULSE 80; RESP 16; TEMP 36.3; O2SAT 100
[2023-06-23 10:00] LABS: Glucose Point of Care 298 mg/dl (65-105)
[2023-06-23 11:32] LABS: Basophils Percent Auto 0.6 % (0.2-1.2); Eosinophils Absolute Auto 0.2 K/mm3 (0-0.3); Eosinophils Percent Auto 3.9 % (0-4.4); Hematocrit 42.3 % (37.0-47.0); Hemoglobin 14.6 g/dL (12.0-15.0); Immature Granulocyte Absolute 0.01 K/mm3 (0.00-0.031); Immature Granulocyte Percent A 0.2 % (0-0.5); Lymphocytes Absolute Auto 1.89 K/mm3 (0.9-3.2); Lymphocytes Percent Auto 36.8 % (18.3-44.2); Mean Corpuscular HGB Conc 34.5 g/dl (32-36); Mean Corpuscular Hemoglobin 29.8 pg (26-34); Mean Corpuscular Volume 86.3 fl (80-100); Mean Platelet Volume 10.7 fl (7.4-10.4); Monocytes Absolute Auto 0.4 K/mm3 (0.1-0.6); Monocytes Percent Auto 7.4 % (2.6-8.5); Neutrophils Absolute Auto 2.6 K/mm3 (1.3-6.7); Neutrophils Percent Auto 51.1 % (45.5-73.1); Platelet Count Result 231 k/mm3 (150-375); Red Cell Distribution Width 12.4 % (11.5-14.5); White Blood Count 5.1 K/mm3 (4.5-10.0)
[2023-06-23 11:56] LABS: Alanine Aminotransferase 31 U/L (6-35); Albumin Level 4.6 g/dL (3.5-5.1); Alkaline Phosphatase 79 U/L (38-126); Anion Gap 9 mmol/L (8-16); Aspartate Amino Transferase 32 U/L (14-36); Bilirubin,Total 0.8 mg/dL (0.2-1.3); Blood Urea Nitrogen 9 mg/dL (7-17); Calcium 9.6 mg/dL (8.4-10.2); Carbon Dioxide 23 mmol/L (22-30); Chloride 102 mmol/L (98-107); Estimated CRCL calculation 115 ml/min; Estimated Glomerular Filt Rate > 60; Glucose 282 mg/dL (65-110); Magnesium 1.8 mg/dL (1.6-2.3); Phosphorus 3.7 mg/dL (2.5-4.5); Potassium 4.1 mmol/L (3.4-5.0); Sodium 134 mmol/L (137-145)
[2023-06-23 12:08] VITALS: PULSE 70
--- NOTE | 2023-06-23 12:13 | ED.GENADULT ---
HPI - General Adult General Chief complaint: Unspecified Stated complaint: unspecified Time Seen by Provider: 06/23/23 11:19 Source: patient Mode of arrival: ambulatory Limitations: language barrier (Using stratus certified court interpreter) History of Present Illness HPI narrative: This is a 57-year-old female that presents to the emergency department for bilateral shoulder pain. Ongoing over the last several months. She was seen at another ER recently for same. No recent injuries or trauma. Pain is worse with movement and relieved with rest. She has been taking Tylenol at home for pain. Denies decreased range of motion or numbness. Related Data Home Medications Medication Instructions Recorded Confirmed empagliflozin 25 mg tablet 25 mg PO QAM 09/24/19 08/26/20 (Jardiance) metformin 1,000 mg tablet 1,000 mg PO BID 09/24/19 08/26/20 simvastatin 10 mg tablet 10 mg PO DAILY 09/24/19 08/26/20 sitagliptin phosphate 100 mg 100 mg PO DAILY 09/24/19 08/26/20 tablet (Januvia) albuterol sulfate 90 mcg/actuation 2 puff inhalation PRN PRN Wheezing 08/23/20 08/26/20 aerosol inhaler multivitamin 1 tablet PO DAILY 08/23/20 08/26/20 phenazopyridine 200 mg tablet See Rx Instructions .Route .COMPLEX 08/23/20 08/26/20 (Pyridium) glimepiride 4 mg tablet 4 mg PO BID 01/05/21 01/05/21 insulin detemir U-100 100 unit/mL 15 unit subcut HS 01/05/21 01/05/21 (3 mL) subcutaneous pen (Levemir FlexTouch U-100 Insulin) metformin 1,000 mg tablet 1,000 mg PO BID 01/05/21 01/05/21 simvastatin 20 mg tablet 20 mg PO DAILY 01/05/21 01/05/21 sitagliptin phosphate 100 mg 100 mg PO DAILY 01/05/21 01/05/21 tablet (Januvia) Allergies Allergy/AdvReac Type Severity Reaction Status Date / Time No Known Allergies Allergy Verified 06/23/23 09:59 Review of Systems Review of Systems: CONSTITUTIONAL: Denies fever SKIN: Denies rash MUSCULOSKELETAL: Reports joint pain, and myalgia. NEUROLOGIC: Denies numbness, or weakness. All systems reviewed & are unremarkable except as noted in HPI and below PMFSH Past Medical History Medical History (Updated 06/23/23 @ 14:29 by Bindu Nino PA-C) Asthma Cervical cancer cin3 EVAN III with severe dysplasia Diabetes Fibromyalgia KARLY (generalized anxiety disorder) History of female sterilization History of miscarriage Hyperlipidemia Menopausal disorder Surgical History Surgical History (Updated 09/07/22 @ 07:36 by Martin Khoury) Delivery by section H/O dilation and curettage Tubal ligation status Family History Family History (System 09/07/22 @ 07:36 by Martin Khoury) Mother Cancer Social History Social History (System 09/07/22 @ 07:36 by Martin Khoury) Smoking status: Never smoker Second hand tobacco smoke exposure: No Alcohol intake: never Substance use: never Substance use type: does not use Living arrangements: alone Occupation/Education: unemployed Gender identity (if verbalized by the patient): Female Sexual Orientation (if Verbalized by the Patient): Straight or Heterosexual Spiritual care concerns: No Agree to blood products: Yes Exam Narrative: GENERAL: Well-appearing, well-nourished, and in no acute distress. HEAD: Normocephalic, atraumatic. EYES: EOMI. NECK: Supple. No adenopathy or masses CHEST: Clear to auscultation. No respiratory distress. No wheezes rales or rhonchi HEART: Regular rate and rhythm. No murmur heard. Normal peripheral pulses. EXTREMITIES: Normal range of motion. No edema. Pain with active ROM in the bilateral shoulders above 90 degrees. Normal radial pulses. Normal sensation SKIN: Warm, dry, no rash. NEURO: No focal deficits. Alert and oriented x3. PSYCH: Normal mood and affect Course Course Emergency Course: Patient updated on her workup and agrees with plan of care Vital Signs Vital signs: Vital Signs Temperature 97.4 F L 06/23/23 09:53 Pulse Rate 80 06/23/23 09:53 Respiratory Rate 16
[2023-06-23] MEDS: KETOROLAC 15 MG/ML VIAL (*BKC) IV PUSH (12:20)
[2023-06-23] MEDS: CYCLOBENZAPRINE HCL 10 MG TABLET PO (12:20)
[2023-06-23 14:02] LABS: Beta-Hydroxybutyrate/Acetoacetate 0.15 mmol/L (0.02-0.27)
[2023-06-23 14:39] VITALS: BP 130/79; PULSE 72; RESP 18
== END 2023-06-23 14:41 | disposition home or self-care (01) ==
PROVIDERS: Emergency Provider Physician Assistant; PCP Physician Assistant
DX: M25.512 Pain in left shoulder (principal); M25.511 Pain in right shoulder; G89.29 Other chronic pain; E11.65 Type 2 diabetes mellitus with hyperglycemia; J45.909 Unspecified asthma, uncomplicated; E78.5 Hyperlipidemia, unspecified; M79.7 Fibromyalgia; Z85.41 Personal history of malignant neoplasm of cervix uteri; Z79.4 Long term (current) use of insulin; Z79.84 Long term (current) use of oral hypoglycemic drugs
CPT/HCPCS: 36415; 73030; 80053; 82010; 82948; 83036; 83735; 84100; 85025; 96374; 99284; A9270; J1885

== ENCOUNTER 2024-11-05 04:52 | Emergency (ER) | payer OTHER, SELFPAY ==
--- NOTE | ~2024-11-05 | CT_ITS ---
Noncontrast CT scan of the cervical spine Technique: Multiple contiguous axial [address] images of the cervical spine were obtained and rec onstructed in 2D sagittal and coronal planes on the acquisition scanner. Dose reduction technique was used on this scan by utilizing automated exposure control, adjustment of the mA and/or kV according to patient size. The dose-length product (DLP) was 434.37 mGy-cm. Clinical History: Pain Findings: No fractures or dislocations. There are minimal degenerative changes scattered in the cerv ical spine.. The intervertebral disc spaces are preserved. No prevertebral soft tissue swelling. Impression: No fracture or subluxation of the cervical spine. Reviewed, dictated and finalized at location . Impression: No fracture or subluxation of the cervical spine.
--- NOTE | ~2024-11-05 | CT_ITS ---
Non-contrast Head CT History: Head injury Technique: Axial non-contrast imaging of the brain was performed. Dose reduction technique was used on this scan by utilizing automated exposure control and iterative reconstruction technique. The dose -length product (DLP) was 605.33 mGy-cm. Findings: There is no evidence of intracranial hemorrhage, mass lesion, or acute infarct. Brain par enchyma appears normal. The ventricles and subarachnoid spaces are normal in size. The calvarium ap pears normal. The visualized paranasal sinuses and mastoid air cells are clear. Impression: No significant abnormality seen. Reviewed, dictated and finalized at location . Impression: No significant abnormality seen.
[2024-11-05 04:55] VITALS: PULSE 78; RESP 18; TEMP 36.1; O2SAT 98
--- OUTSIDE RECORDS SUMMARY | 2024-11-05 04:55 | XMS_ITS | Data Portability ---
[facility] Address [address] [place] [address] Care Team Providers Care Machine Hoop Maker Name Role Phone MAYLIN ABDALLA Primary Care Provider WILLIE HERNANDEZ Manager Database Administration Assessment Encounter Date Assessment Date Assessment LastModified by Organization Details LastModified Time 04/11/2023 04/11/2023 stop glimepiride Not available 04/11/2023 14:31:45 05/22/2023 05/22/2023 stop glimepiride Not available 05/22/2023 10:05:15 06/24/2023 06/24/2023 medicate pharmacy tramadol stop januvia since picked up [email or web address] Not available 06/24/2023 11:00:13 01/28/2024 01/28/2024 Patient has been in for a few months and that is why she has not followed up. She states she has been needing refills of medications. She leaves for again tomorrow to be with father for an unknown amount of time. I let her know her DM has been uncontrolled for months and she is danger of stroke, renal damage, HF, [place], etc. advised ER visit if cp, sob, weakness on one side, worst headache of her life. Not available 01/28/2024 11:17:43 Plan of Treatment Reminders Order Date Submit Date Provider Last Modified By Organization Details Last Modified Time Details Appointments ANY 15 2024 08:00A M HEATHER DOSHI Not available Not available Not available Lab CMP, serum or plasma 2024 025 [facility], [address], [place], [address], 10/14/2024 00:07:57 lipid panel, serum 2024 025 [facility], [address], [place], [address], 10/14/2024 00:07:55 albumin/c reatinine , mass ratio, urine 2024 025 [facility], [address], [place], [address], 10/14/2024 09:14:06 culture, urine 2024 025 [facility], [address], [place], [address], 10/18/2024 09:09:49 urinalysi s, dipstick 2024 025 REX In-Office Order, Internal Use Only DO Not Attach Compendium DO Not Attach Compendium, Do Not Delete/merge, [id number] 10/13/2024 11:19:13 HbA1c (hemoglob in A1c), blood 2024 025 [email or web address], Internal Use Only DO Not Attach Compendium DO Not Attach Compendium, Do Not Delete/merge, [id number] 10/13/2024 11:11:21 CMP, serum or plasma 2023 024 [facility], [address], [place], [address], 01/28/2024 23:07:53 lipid panel, serum 2023 024 [facility], [address], [place], [address], 01/28/2024 23:07:52 albumin/c reatinine , mass ratio, urine 2023 024 [facility], [address], [place], [address], 01/29/2024 12:14:16 HbA1c (hemoglob in A1c), blood 2023 024 [facility], [address], [place], [address], 01/29/2024 12:14:16 urinalysi s, dipstick 2023 024 [facility] In-Office Order, Internal Use Only DO Not Attach Compendium DO Not Attach Compendium, Do Not Delete/merge, [id number] 01/28/2024 12:13:37 culture, urine 2023 024 [facility], [address], [place], [address], 02/18/2024 07:59:09 cytology report, thin prep, smear or scraping, cervical or vaginal 2023 024 [facility], [address], [place], [address], 02/02/2024 12:08:08 CMP, serum or plasma 2023 024 [facility], [address], [place], [address], 05/23/2023 18:09:27 lipid panel, serum 2023 024 [facility], [address], [address], [place], [address], 05/23/2023 18:09:26 albumin/c reatinine , mass ratio, urine 2023 024 [facility], [address], [address], [place], [address], 05/23/2023 08:52:50 HbA1c (hemoglob in A1c), blood 2023 024 [facility], [address], [place], [address], 05/23/2023 08:52:51 glucose, fingersti ck, blood 2023 024 In-Office Order, Internal Use Only DO Not Attach Compendium DO Not Attach Compendium, Do Not Delete/merge, [id number] 05/22/2023 10:11:58 HbA1c (hemoglob in A1c), blood 2022 023 In-Office Order, Internal Use Only DO Not Attach Compendium DO Not Attach Compendium, Do Not Delete/merge, [id number] 04/11/2023 14:31:28 Referral cardiolog ist referral 2024 025 Aretha Becker MD, [address], [address], [place], [address], 11/03/2024 08:16:38 endocrino logy referral 2023 024 karo Calderon MD, [address], [place], [address], 07/29/2023 15:34:52 orthopedi c surgeon referral 2023 024 karo Renteria MD, [address] [facility] , [address], [place], [address], 05/24/2023 09:51:40 orthopedi c surgeon referral 2022 023 [email or web address] [facility], [address], [place], [address], 11/21/2023 08:05:17 Procedures nerve conductio n study/EMG , upper extremity (PROC) 2023 024 [facility] ([facility]), [address] [place], [address], 08/08/2023 10:50:11 Surgeries None recorded. Imaging MAMMO, screening , digital, bilateral 2023 024 [email or web address] [facility] ([facility]), [address] [place], [address], 01/28/2024 16:26:56 MRI, shoulder, w/o contrast 2023 024 [facility] ([facility]), [address] [place], [address], 07/05/2023 12:56:34 MRI, shoulder, w/o contrast 2022 023 [facility] ([facility]), [address] [place], [address], 06/07/2023 10:15:33 Medication Orders Miralax 17 gram/dose oral powder 2024 025 [facility], [address] [place] [address], [id number], 10/13/2024 16:27:51 aspirin 81 mg tablet,de layed release 2024 025 [facility], [address] [place] [address], [id number], 10/13/2024 16:27:51 nitrofura ntoin monohydra te/macroc rystals 100 mg capsule 2024 025 [facility], [address] [place] [address], [id number], 10/31/2024 05:02:00 Lantus Solostar U-100 Insulin 100 unit/mL (3 mL) subcutane ous pen 2024 025 [facility], [address] [place] [address], [id number], 10/13/2024 16:27:53 metformin 1,000 mg tablet 2024 025 [facility], [address] [place] [address], [id number], 10/13/2024 11:36:41 True Metrix Glucose Test Strip 2024 025 [facility], [address] [place] [address], [id number], 10/13/2024 16:27:53 Levemir FlexPen 100 unit/mL (3 mL) solution subcutane ous insulin pen [address], [address] [place] [address], [id number], 10/13/2024 11:12:14 Trulicity 1.5 mg/0.5 mL subcutane ous pen injector 2023 025 [facility], [address] [place], [address], 10/13/2024 11:04:21 glimepiri de 4 mg tablet 2023 024 [facility], [address] [place] [address], [id number], 10/13/2024 16:48:00 metformin 1,000 mg tablet 2023 024 [facility], [address] [place] [address], [id number], 10/13/2024 16:47:58 gabapenti n 300 mg capsule [address], [address] [place] [address], [id number], 10/13/2024 11:02:56 Trulicity 0.75 mg/0.5 mL subcutane ous pen injector 2023 024 REX [employer] [facility], [address] [place] [address], [id number], 01/28/2024 12:00:57 Trulicity 0.75 mg/0.5 mL subcutane ous pen injector 2023 024 [place] [address] [employer] [facility], [address] [place] [address], [id number], 01/28/2024 11:16:25 atorvasta tin 80 mg tablet 2023 024 [facility], [address] [place] [address], [id number], 01/28/2024 13:56:43 Levemir FlexTouch U-100 Insulin 100 unit/mL (3 mL) subcutane ous pen 2022 023 [place] [address] [employer] [facility], [address] [place] [address], [id number], 10/13/2024 11:12:14 Ozempic 0.25 mg or 0.5 mg (2 mg/1.5 mL) subcutane ous pen injector 2022 024 [facility], [address] [place] [address], [id number], 05/22/2023 11:22:29 Patient TargetsNo targets recorded. Patient Instructions Encounter Date Encounter Id Patient Instructions Last Modified By Organization Details Last Modified Time 01/28/2024 [id number] A healthy lifestyle: care instructions Not available 01/28/2024 11:18:28 10/13/2024 [id number] A healthy lifestyle: care instructions Not available 10/13/2024 11:11:18 Reason for Referral Orthopedic Surgeon Referral for Pain of right shoulder joint Referring Physician: Maylin Makayla, Rework Machine Operator, Encounter Date: 04/11/2023 Endocrinology Referral for T ype 2 diabetes mellitus Referring Physician: General Gayle Doshi, Encounter Date: 05/22/2023 Orthopedic Surgeon Referral for Pain of right shoulder joint Referring Physician: Maylin Abdalla Rework Machine Operator, Encounter Date: 05/22/2023 Administrative Project Coordinator Referral for Ch est pain Referring Physician: Maylin Abdalla Rework Machine Operator, Encounter Date: 10/13/2024 Results Created Date Observation Date Name Description Value Unit Range Abnormal Flag Note LastModifiedBy Organization Detail LastModifiedTime 04/11/2004/11/2023 HbA1c (hemo globi n A1c), blood HbA1c 12.0 Not Available In-Office Order Internal Use Only DO Not Attach Compendium DO Not Attach Compendium, Do Not Delete/merge, [id number] 04/11/2023 14:19:06 05/22/19 24 05/23/2023 ALBUM IN/CR EATIN INE RATIO ,URIN E creatinine, urine 31.2 mg/dL notest ab. Not Available [facility] ([facility]) [address] [place], [address], 05/23/2023 08:52:50 05/22/19 24 05/23/2023 ALBUM IN/CR EATIN INE RATIO ,URIN E albumin, urine 7.1 ug/mL notest ab. Not Available [facility] ([facility]) [address] [place], [address], 05/23/2023 08:52:50 05/22/1905/23/2023 ALBUM IN/CR EATIN INE RATIO ,URIN E alb/creat ratio 23 mg/g_ creat 0-29 Marysol l: 0 - 29 Moder ately incre ased: 30 - 300 Sever rashad incre ased: >300 Not Available [facility] ([facility]) [address] [place], [address], 05/23/2023 08:52:50 05/22/19 24 05/23/2023 HEMOG LOBIN A1C hemoglobin A1C 11.4 % 4.8-5. 6 above high normal Predi abete s: 5.7 - 6.4 Diabe sho: >6.4 Glyce lisa contr ol for adult s with diabe sho: <7.0 Not Available [facility] ([facility]) [address] [facility], [place], [address], 05/23/2023 08:52:51 05/22/19 24 05/23/2023 LIPID PANEL cholesterol, total 244 mg/dL 100-19 9 above high normal Not Available [facility] [address] [place] [address], [address], 05/23/2023 18:09:26 05/22/19 24 05/23/2023 LIPID PANEL triglyceride s 258 mg/dL 0-149 above high normal Not Available [facility] [address] [place] [address], [id number], 05/23/2023 18:09:26 05/22/19 24 05/23/2023 LIPID PANEL HDL cholesterol 50 mg/dL 40-999 Not Available [facility] [address] [place] [address], [id number], 05/23/2023 18:09:26 05/22/19 24 05/23/2023 LIPID PANEL VLDL cholesterol baldo 52 mg/dL 5-40 above high normal Not Available [facility] [address] [place] [address], [address], 05/23/2023 18:09:26 05/22/19 24 05/23/2023 LIPID PANEL LDL chol calc ([facility]) 178 mg/dL 0-99 above high normal Not Available [facility] [address] [place] [address], [id number], 05/23/2023 18:09:26 05/22/19 24 05/23/2023 COMP. METAB OLIC PANEL (14) glucose 278 mg/dL 70-99 above high normal Not Available [facility] [address] [place] [address], [address], 05/23/2023 18:09:27 05/22/19 24 05/23/2023 COMP. METAB OLIC PANEL (14) BUN 11 mg/dL 6-24 Not Available [facility] [address] [place] [address], [address], 05/23/2023 18:09:27 05/22/19 24 05/23/2023 COMP. METAB OLIC PANEL (14) creatinine 0.54 mg/dL 0.76-1 .27 below low normal Not Available [facility] [address] [place] [address], [address], 05/23/2023 18:09:27 05/22/19 24 05/23/2023 COMP. METAB OLIC PANEL (14) eGFR 108 >=60 Units for eGFR value s are mL/mi n/1.7 3 The eGFR Calcu latio n has not been valid ated for patie nts under the age of 18. If test resul ts are displ ayed for a patie nt under the age of 18, disre nga that value . Not Available [facility] [address] [place] [address], [address], 05/23/2023 18:09:27 05/22/19 24 05/23/2023 COMP. METAB OLIC PANEL (14) BUN/creatini ne ratio 21 9-23 Not Available [facility] Department [address] [place] [address], [id number], 05/23/2023 18:09:27 05/22/19 24 05/23/2023 COMP. METAB OLIC PANEL (14) sodium 137 mmol/ L 134-14 4 Not Available [facility] [address] [place] [address], [address], 05/23/2023 18:09:27 05/22/19 24 05/23/2023 COMP. METAB OLIC PANEL (14) potassium 4.3 mmol/ L 3.5-5. 2 Not Available [facility] Department [address] [place], [address], 05/23/2023 18:09:27 05/22/19 24 05/23/2023 COMP. METAB OLIC PANEL (14) chloride 101 mmol/ L 96-106 Not Available [facility] [address] [place], [address], 05/23/2023 18:09:27 05/22/19 24 05/23/2023 COMP. METAB OLIC PANEL (14) carbon dioxide, total 22 mmol/ L 20-29 Not Available [facility] [address] [place], [address], 05/23/2023 18:09:27 05/22/19 24 05/23/2023 COMP. METAB OLIC PANEL (14) calcium 9.8 mg/dL 8.7-10 .2 Not Available [facility] [address] [place], [address], 05/23/2023 18:09:27 05/22/19 24 05/23/2023 COMP. METAB OLIC PANEL (14) protein, total 7.8 g/dL 6.0-8. 5 Not Available [facility] [address] [place], [address], 05/23/2023 18:09:27 05/22/19 24 05/23/2023 COMP. METAB OLIC PANEL (14) albumin 4.6 g/dL 3.8-4. 9 Not Available [facility] [address] [place], [address], 05/23/2023 18:09:27 05/22/19 24 05/23/2023 COMP. METAB OLIC PANEL (14) globulin, total 3.2 g/dL 1.5-4. 5 Not Available [facility] [address] [place], [address], 05/23/2023 18:09:27 05/22/19 24 05/23/2023 COMP. METAB OLIC PANEL (14) A/G ratio 1.4 1.2-2. 2 Not Available [facility] [address] [place] [address], [address], 05/23/2023 18:09:27 05/22/19 24 05/23/2023 COMP. METAB OLIC PANEL (14) bilirubin, total 0.4 mg/dL 0.0-1. 2 Not Available [facility] [address] [place] [address], [address], 05/23/2023 18:09:27 05/22/19 24 05/23/2023 COMP. METAB OLIC PANEL (14) alkaline phosphatase 84 IU/L 44-121 Not Available [facility] [address] [place] [address], [address], 05/23/2023 18:09:27 05/22/19 24 05/23/2023 COMP. METAB OLIC PANEL (14) AST (SGOT) 24 IU/L 0-40 Not Available [facility] Department [address] [place], [address], 05/23/2023 18:09:27 05/22/19 24 05/23/2023 COMP. METAB OLIC PANEL (14) ALT (SGPT) 29 IU/L 0-32 Not Available [facility] [address] [place] [address], [address], 05/23/2023 18:09:27 05/22/19 24 05/22/2023 gluco se, finge rstic k, blood Blood Glucose: mg/dl 278 Not Available In-Off ice Order Internal Use Only DO Not Attach Compendium DO Not Attach Compendium, Do Not Delete/merge, [id number] 05/22/2023 10:11:42 01/28/20 24 01/28/2024 LIPID PANEL cholesterol, total 227 mg/dL 100-19 9 above high normal Not Available [facility] [address] [place] [address], [address], 01/28/2024 23:07:52 01/28/2001/28/2024 LIPID PANEL triglyceride s 399 mg/dL 0-149 above high normal Not Available [facility] [address] [place] [address], [address], 01/28/2024 23:07:52 01/28/2001/28/2024 LIPID PANEL HDL cholesterol 41 mg/dL 40-999 Not Available [facility] [address] [place], [address], 01/28/2024 23:07:52 01/28/2001/28/2024 LIPID PANEL VLDL cholesterol baldo 80 mg/dL 5-40 above high normal Not Available [facility] [address] [place] [address], [address], 01/28/2024 23:07:52 01/28/2001/28/2024 LIPID PANEL LDL chol calc ([facility]) 163 mg/dL 0-99 above high normal Not Available [facility] [address] [place], [address], 01/28/2024 23:07:52 01/28/2001/28/2024 COMP. METAB OLIC PANEL (14) glucose 348 mg/dL 70-99 above high normal Not Available [facility] [address] [place], [address], 01/28/2024 23:07:53 01/28/2001/28/2024 COMP. METAB OLIC PANEL (14) BUN 10 mg/dL 6-24 Not Available [facility] [address] [place] [address], [address], 01/28/2024 23:07:53 01/28/2001/28/2024 COMP. METAB OLIC PANEL (14) creatinine <=0.46 mg/dL 0.76-1 .27 below low normal Not Available [facility] [address] [place] [address], [address], 01/28/2024 23:07:53 01/28/20 24 01/28/2024 COMP. METAB OLIC PANEL (14) eGFR 112 >=60 Units for eGFR value s are mL/mi n/1.7 3 The eGFR Calcu latio n has not been valid ated for patie nts under the age of 18. If test resul ts are displ ayed for a patie nt under the age of 18, disre nga that value . Not Available [facility] [address] [place] [address], [address], 01/28/2024 23:07:53 01/28/20 24 01/28/2024 COMP. METAB OLIC PANEL (14) BUN/creatini ne ratio 23 9-23 Not Available [facility] Department [address] [place] [address], [address], 01/28/2024 23:07:53 01/28/20 24 01/28/2024 COMP. METAB OLIC PANEL (14) sodium 133 mmol/ L 134-14 4 below low normal Not Available [facility] [address] [place] [address], [address], 01/28/2024 23:07:53 01/28/20 24 01/28/2024 COMP. METAB OLIC PANEL (14) potassium 4.3 mmol/ L 3.5-5. 2 Not Available [facility] [address] [place] [address], [address], 01/28/2024 23:07:53 01/28/20 24 01/28/2024 COMP. METAB OLIC PANEL (14) chloride 97 mmol/ L 96-106 Not Available [facility] [address] [place] [address], [address], 01/28/2024 23:07:53 01/28/20 24 01/28/2024 COMP. METAB OLIC PANEL (14) carbon dioxide, total 27 mmol/ L 20-29 Not Available [facility] [address] [place], [address], 01/28/2024 23:07:53 01/28/2001/28/2024 COMP. METAB OLIC PANEL (14) calcium 9.7 mg/dL 8.7-10 .2 Not Available [facility] [address] [place], [address], 01/28/2024 23:07:53 01/28/20 24 01/28/2024 COMP. METAB OLIC PANEL (14) protein, total 7.6 g/dL 6.0-8. 5 Not Available [facility] [address] [place], [address], 01/28/2024 23:07:53 01/28/20 24 01/28/2024 COMP. METAB OLIC PANEL (14) albumin 4.5 g/dL 3.8-4. 9 Not Available [facility] [address] [place], [address], 01/28/2024 23:07:53 01/28/2001/28/2024 COMP. METAB OLIC PANEL (14) globulin, total 3.1 g/dL 1.5-4. 5 Not Available [facility] [address] [place], [address], 01/28/2024 23:07:53 01/28/20 24 01/28/2024 COMP. METAB OLIC PANEL (14) A/G ratio 2.0 1.2-2. 2 Not Available [facility] [address] [place], [address], 01/28/2024 23:07:53 01/28/20 24 01/28/2024 COMP. METAB OLIC PANEL (14) bilirubin, total 0.4 mg/dL 0.0-1. 2 Not Available [facility] [address] [place], [address], 01/28/2024 23:07:53 01/28/20 24 01/28/2024 COMP. METAB OLIC PANEL (14) alkaline phosphatase 108 IU/L 44-121 Not Available [facility] [address] [place] [address], [address], 01/28/2024 23:07:53 01/28/20 24 01/28/2024 COMP. METAB OLIC PANEL (14) AST (SGOT) 17 IU/L 0-40 Not Available [facility] [address] [place] [address], [address], 01/28/2024 23:07:53 01/28/20 24 01/28/2024 COMP. METAB OLIC PANEL (14) ALT (SGPT) 23 IU/L 0-32 Not Available [facility] [address] [place] [address], [address], 01/28/2024 23:07:53 01/28/20 24 01/29/2024 ALBUM IN/CR EATIN INE RATIO ,URIN E creatinine, urine 35.7 mg/dL notest ab. Not Available [facility] ([facility]) [address] [facility], [place], [address], 01/29/2024 12:14:16 01/28/20 24 01/29/2024 ALBUM IN/CR EATIN INE RATIO ,URIN E albumin, urine 6.4 ug/mL notest ab. Not Available [facility] ([facility]) [address] [place], [address], 01/29/2024 12:14:16 01/28/2001/29/2024 ALBUM IN/CR EATIN INE RATIO ,URIN E alb/creat ratio 18 mg/g_ creat 0-29 Marysol l: 0 - 29 Moder ately incre ased: 30 - 300 Sever rashad incre ased: >300 Not Available [facility] ([facility]) [address] [facility], [place], [address], 01/29/2024 12:14:16 01/28/20 24 01/29/2024 HEMOG LOBIN A1C hemoglobin A1C 14.3 % 4.8-5. 6 above high normal Predi abete s: 5.7 - 6.4 Diabe sho: >6.4 Glyce lisa contr ol for adult s with diabe sho: <7.0 Not Available [facility] ([facility]) [address] [facility], [place], [address], 01/29/2024 12:14:16 01/28/20 24 01/30/2024 IGP, APTIM A HPV, RFX 16/18 ,45 HPV aptima NEGATI VE negati ve This nucle ic acid ampli ficat ion test detec ts fourt een high- risk HPV types (16,1 8,31, 33,35 ,39,4 5,51, 52,56 ,58,5 9,66, 68) witho ut diffe renti ation . Not Available [facility] ([facility]) [address] [facility], [place], [address], 02/02/2024 12:08:08 01/28/2002/02/2024 IGP, APTIM A HPV, RFX 16/18 ,45 diagnosis: COMMEN T NEGAT TISH FOR INTRA EPITH ELIAL LESIO N OR CARLITO PERRY . CELLU LAR MCKINNEY ES ASSOC IATED WITH ATROP HY ARE PRESE NT. Not Available [facility] ([facility]) [address] [facility], [place], [address], 02/02/2024 12:08:08 01/28/2002/02/2024 IGP, APTIM A HPV, RFX 16/18 ,45 specimen adequacy: COMMEN T Satis facto ry for evalu ation . Endoc ervic al compo nent may not be disti nguis hed in cases of atrop hy. Not Available [facility] ([facility]) [address] [facility], [place], [address], 02/02/2024 12:08:08 01/28/20 24 02/02/2024 IGP, APTIM A HPV, RFX 16/18 ,45 clinician provided ICD10: WENDY Kinney Z01.4 19 E11.9 Not Available [facility] ([facility]) [address] [facility], [place], [address], 02/02/2024 12:08:08 01/28/20 24 02/02/2024 IGP, APTIM A HPV, RFX 16/18 ,45 performed by: WENDY pereyra, Cytogregoria kinney (ASCP ) Not Available [facility] ([facility]) [address] [facility], [place], [address], 02/02/2024 12:08:08 01/28/2002/02/2024 IGP, APTIM A HPV, RFX 16/18 ,45 . . Not Available [facility] ([facility]) [address] [facility], [place], [address], 02/02/2024 12:08:08 01/28/20 24 02/02/2024 IGP, APTIM A HPV, RFX 16/18 ,45 note: WENDY Kinney The Pap smear is a scree deepti test desig gale to aid in the detec tion of yanna ligna nt and malig nant condi tions of the uteri ne cervi x. It is not a diagn ostic proce dure and shoul d not be used as the sole means of detec ting cervi baldo cance r. Both false -posi tive and false -nega tive repor ts do occur . Not Available [facility] ([facility]) [address] [facility], [place], [address], 02/02/2024 12:08:08 01/28/20 24 02/02/2024 IGP, APTIM A HPV, RFX 16/18 ,45 test methodology: WENDY Kinney This liqui d based ThinP rep(R ) pap test was scree gale with the use of an image guide d systmarquis m. Not Available [facility] ([facility]) [address] [facility], [place], [address], 02/02/2024 12:08:08 01/28/2002/02/2024 IGP, APTIM A HPV, RFX 16/18 ,45 HPV genotype reflex COMMEN T Crite syeda not met, HPV Genot ype not perfo rmed. Not Available [facility] ([facility]) [address] [facility], [place], [address], 02/02/2024 12:08:08 01/29/20 24 01/29/2024 urina lysis , dipst ick Leukocytes Negati ve Not Available In-Office Order Internal Use Only DO Not Attach Compendium DO Not Attach Compendium, Do Not Delete/merge, 01/28/2024 11:04:57 01/29/2001/29/2024 urina lysis , dipst ick Nitrite positi ve Not Available In-Office Order Internal Use Only DO Not Attach Compendium DO Not Attach Compendium, Do Not Delete/merge, 01/28/2024 11:04:57 01/29/2001/29/2024 urina lysis , dipst ick Urobilinogen .2 Not Available In-Of fice Order Internal Use Only DO Not Attach Compendium DO Not Attach Compendium, Do Not Delete/merge, 01/28/2024 11:04:57 01/29/2001/29/2024 urina lysis , dipst ick Protein Negati ve Not Available In-Office Order Internal Use Only DO Not Attach Compendium DO Not Attach Compendium, Do Not Delete/merge, 01/28/2024 11:04:57 01/29/2001/29/2024 urina lysis , dipst ick pH 6.5 Not Available In-Office Order Internal Use Only DO Not Attach Compendium DO Not Attach Compendium, Do Not Delete/merge, 01/28/2024 11:04:57 01/29/20 24 01/29/2024 urina lysis , dipst ick Blood Negati ve Not Available In-Office Order Internal Use Only DO Not Attach Compendium DO Not Attach Compendium, Do Not Delete/merge, [id number] 01/28/2024 11:04:57 01/29/2001/29/2024 urina lysis , dipst ick Specific [place] 1.020 Not Available In-Off ice Order Internal Use Only DO Not Attach Compendium DO Not Attach Compendium, Do Not Delete/merge, [id number] 01/28/2024 11:04:57 01/29/2001/29/2024 urina lysis , dipst ick Ketone Large (160) Not Available In-Office Order Internal Use Only DO Not Attach Compendium DO Not Attach Compendium, Do Not Delete/merge, 01/28/2024 11:04:57 01/29/2001/29/2024 urina lysis , dipst ick Bilirubin Negati ve Not Available In-Office Order Internal Use Only DO Not Attach Compendium DO Not Attach Compendium, Do Not Delete/merge, [id number] 01/28/2024 11:04:57 01/29/2001/29/2024 urina lysis , dipst ick Glucose 2000+ Not Available In-Office Order Internal Use Only DO Not Attach Compendium DO Not Attach Compendium, Do Not Delete/merge, 01/28/2024 11:04:57 01/29/2001/29/2024 urina lysis , dipst ick Appearance Clear Not Available In-Offi ce Order Internal Use Only DO Not Attach Compendium DO Not Attach Compendium, Do Not Delete/merge, 01/28/2024 11:04:57 01/29/2001/29/2024 urina lysis , dipst ick Color Yellow Not Available In-Office Order Internal Use Only DO Not Attach Compendium DO Not Attach Compendium, Do Not Delete/merge, 01/28/2024 11:04:57 10/14/19 25 10/13/2024 LIPID PANEL cholesterol, total 242 mg/dL 100-19 9 above high normal Not Available [facility] Department [address], [place], [address], 10/14/2024 00:07:55 10/14/19 25 10/13/2024 LIPID PANEL triglyceride s 265 mg/dL 0-149 above high normal Not Available [facility] Department [address] [place] [address], [address], 10/14/2024 00:07:55 10/14/19 25 10/13/2024 LIPID PANEL HDL cholesterol 43 mg/dL 40-999 Not Available [facility] Department [address] [place] [address], [address], 10/14/2024 00:07:55 10/14/19 25 10/13/2024 LIPID PANEL VLDL cholesterol baldo 53 mg/dL 5-40 above high normal Not Available [facility] Department [address] [place] [address], [address], 10/14/2024 00:07:55 10/14/19 25 10/13/2024 LIPID PANEL LDL chol calc (nih) 182 mg/dL 0-99 above high normal Not Available [facility] Department [address] [place] [address], [address], 10/14/2024 00:07:55 10/14/19 25 10/13/2024 COMP. METAB OLIC PANEL (14) glucose 328 mg/dL 70-99 above high normal Not Available [facility] Department [address] [place] [address], [address], 10/14/2024 00:07:57 10/14/19 25 10/13/2024 COMP. METAB OLIC PANEL (14) BUN 16 mg/dL 6-24 Not Available [facility] Department [address] [place] [address], [address], 10/14/2024 00:07:57 10/14/19 25 10/13/2024 COMP. METAB OLIC PANEL (14) creatinine 0.52 mg/dL 0.76-1 .27 below low normal Not Available [facility] Department [address] [place] [address], [address], 10/14/2024 00:07:57 06/17/20 25 10/13/2024 COMP. METAB OLIC PANEL (14) eGFR 108 >=60 Units for eGFR value s are mL/mi n/1.7 3 The eGFR Calcu latio n has not been valid ated for patie nts under the age of 18. If test resul ts are displ ayed for a patie nt under the age of 18, disre nga that value . Not Available [facility] Department [address] [place] [address], [address], 10/14/2024 00:07:57 10/14/19 25 10/13/2024 COMP. METAB OLIC PANEL (14) BUN/creatini ne ratio 30 9-23 above high normal Not Available [facility] Department [address] [place] [address], [address], 10/14/2024 00:07:57 10/14/19 25 10/13/2024 COMP. METAB OLIC PANEL (14) sodium 133 mmol/ L 134-14 4 below low normal Not Available [facility] Department [address] [place] [address], [address], 10/14/2024 00:07:57 10/14/19 25 10/13/2024 COMP. METAB OLIC PANEL (14) potassium 4.5 mmol/ L 3.5-5. 2 Not Available [facility] Department [address] [place] [address], [address], 10/14/2024 00:07:57 10/14/19 25 10/13/2024 COMP. METAB OLIC PANEL (14) chloride 98 mmol/ L 96-106 Not Available [facility] Department [address] [place] [address], [address], 10/14/2024 00:07:57 10/14/19 25 10/13/2024 COMP. METAB OLIC PANEL (14) carbon dioxide, total 20 mmol/ L 20-29 Not Available [facility] Department [address] [place] [address], [address], 10/14/2024 00:07:57 10/14/19 25 10/13/2024 COMP. METAB OLIC PANEL (14) calcium 9.6 mg/dL 8.7-10 .2 Not Available [facility] Department [address] [place], [address], 10/14/2024 00:07:57 10/14/19 25 10/13/2024 COMP. METAB OLIC PANEL (14) protein, total 7.0 g/dL 6.0-8. 5 Not Available [facility] Department [address] [place], [address], 10/14/2024 00:07:57 10/14/19 25 10/13/2024 COMP. METAB OLIC PANEL (14) albumin 4.4 g/dL 3.8-4. 9 Not Available [facility] Department [address] [place], [address], 10/14/2024 00:07:57 10/14/19 25 10/13/2024 COMP. METAB OLIC PANEL (14) globulin, total 2.6 g/dL 1.5-4. 5 Not Available [facility] Department [address] [place], [address], 10/14/2024 00:07:57 10/14/19 25 10/13/2024 COMP. METAB OLIC PANEL (14) A/G ratio 2.0 1.2-2. 2 Not Available [facility] Department [address] [place], [address], 10/14/2024 00:07:57 10/14/19 25 10/13/2024 COMP. METAB OLIC PANEL (14) bilirubin, total 0.4 mg/dL 0.0-1. 2 Not Available [facility] Department [address] [place], [address], 10/14/2024 00:07:57 10/14/19 25 10/13/2024 COMP. METAB OLIC PANEL (14) alkaline phosphatase 107 IU/L 44-121 Not Available [facility] Department [address] [place], [address], 10/14/2024 00:07:57 10/14/19 25 10/13/2024 COMP. METAB OLIC PANEL (14) AST (SGOT) 18 U/L 0-40 Not Available [facility] Department [address] [place], [address], 10/14/2024 00:07:57 10/14/19 25 10/13/2024 COMP. METAB OLIC PANEL (14) ALT (SGPT) 18 IU/L 0-32 Not Available [facility] Department [address] [place], [address], 10/14/2024 00:07:57 10/14/19 25 10/14/2024 ALBUM IN/CR EATIN INE RATIO ,URIN E creatinine, urine 52.1 mg/dL notest ab. Not Available [facility] ([facility]) [address] [place], [address], 10/14/2024 09:14:06 10/14/19 25 10/14/2024 ALBUM IN/CR EATIN INE RATIO ,URIN E albumin, urine <3.0 ug/mL notest ab. Not Available [facility] ([facility]) [address] [place], [address], 10/14/2024 09:14:06 10/14/19 25 10/14/2024 ALBUM IN/CR EATIN INE RATIO ,URIN E alb/creat ratio <6 Marysol l: 0 - 29 Moder ately incre ased: 30 - 300 Sever rashad incre ased: >300 Not Available [facility] ([facility]) [address] [place], [address], 10/14/2024 09:14:06 10/14/19 25 10/18/2024 URINE CULTU RE, SHIN NE urine culture, routine FINAL REPORT abnormal Not Available [facility] ([facility]) [address] [facility], [place], [address], 10/18/2024 09:09:49 10/14/19 25 10/18/2024 URINE CULTU RE, ROUTI NE result 1 ESCHER ICHIA COLI abnormal Multi -Drug Resis tant Organ ism Cefaz girish with an LISA <=16 predi cts susce ptibi lity to the oral agent s cefac davon, cefdi chelly, cefpo doxim e, cefpr ozil, cefur oxime , cepha lexin , and lorac arbef when used for thera py of uncom plica maylin urina ry tract infec tions due to E. coli, Klebs iella pneum oniae , and Prote us mirab ilis. Great er than 100,0 00 colon y formi ng units per mL Not Available [facility] ([facility]) [address] [facility], [place], [address], 10/18/2024 09:09:49 10/14/19 25 10/18/2024 URINE CULTU RE, ROUTI NE antimicrobia l susceptibili ty COMMEN T S = Susce ptibl e; I = Inter media te; R = Resis tant P = Posit tish; N = Negat tish MICS are expre ssed in micro grams per mL Antib iotic RSLT# 1 RSLT# 2 RSLT# 3 RSLT# 4 Amoxi cilli n/Cla vulan ic Acid S Ampic illin I Cefaz girish S Cefep ros S Cefox itin S Cefpo doxim e S Ceftr iaxon e S Cipro floxa sancho S Ertap enem S Genta micin S Levof loxac in S Merop enem S Nitro furan toin S Piper acill in/Ta zobac mckeon S Tetra cycli ne R Tobra mycin S Trime thopr im/Ramos lfa R Not Available [facility] ([facility]) [address] [facility], [place], [address], 10/18/2024 09:09:49 10/14/19 25 10/13/2024 urina lysis , dipst ick Leukocytes Negati ve Not Available In-Office Order Internal Use Only DO Not Attach Compendium DO Not Attach Compendium, Do Not Delete/merge, [facility] 10/13/2024 10:53:54 10/14/19 25 10/13/2024 urina lysis , dipst ick Nitrite negati ve Not Available In-Office Order Internal Use Only DO Not Attach Compendium DO Not Attach Compendium, Do Not Delete/merge, [facility] 10/13/2024 10:53:54 10/14/19 25 10/13/2024 urina lysis , dipst ick Urobilinogen 1 Not Available In-Of fice Order Internal Use Only DO Not Attach Compendium DO Not Attach Compendium, Do Not Delete/merge, [facility] 10/13/2024 10:53:54 10/14/19 25 10/13/2024 urina lysis , dipst ick Protein Negati ve Not Available In-Office Order Internal Use Only DO Not Attach Compendium DO Not Attach Compendium, Do Not Delete/merge, [facility] 10/13/2024 10:53:54 10/14/19 25 10/13/2024 urina lysis , dipst ick pH 7.0 Not Available In-Office Order Internal Use Only DO Not Attach Compendium DO Not Attach Compendium, Do Not Delete/merge, [facility] 10/13/2024 10:53:54 10/14/19 25 10/13/2024 urina lysis , dipst ick Blood Negati ve Not Available In-Office Order Internal Use Only DO Not Attach Compendium DO Not Attach Compendium, Do Not Delete/merge, [facility] 10/13/2024 10:53:54 10/14/19 25 10/13/2024 urina lysis , dipst ick Specific [place] 1.015 Not Available In-Off ice Order Internal Use Only DO Not Attach Compendium DO Not Attach Compendium, Do Not Delete/merge, [facility] 10/13/2024 10:53:54 10/14/19 25 10/13/2024 urina lysis , dipst ick Ketone Negati ve Not Available In-Office Order Internal Use Only DO Not Attach Compendium DO Not Attach Compendium, Do Not Delete/merge, [facility] 10/13/2024 10:53:54 10/14/19 25 10/13/2024 urina lysis , dipst ick Bilirubin Negati ve Not Available In-Office Order Internal Use Only DO Not Attach Compendium DO Not Attach Compendium, Do Not Delete/merge, [facility] 10/13/2024 10:53:54 10/14/19 25 10/13/2024 urina lysis , dipst ick Glucose Negati ve Not Available In-Office Order Internal Use Only DO Not Attach Compendium DO Not Attach Compendium, Do Not Delete/merge, [facility] 10/13/2024 10:53:54 10/14/19 25 10/13/2024 urina lysis , dipst ick Appearance Clear Not Available In-Offi ce Order Internal Use Only DO Not Attach Compendium DO Not Attach Compendium, Do Not Delete/merge, [facility] 10/13/2024 10:53:54 10/14/1910/13/2024 urina lysis , dipst ick Color Yellow Not Available In-Office Order Internal Use Only DO Not Attach Compendium DO Not Attach Compendium, Do Not Delete/merge, [facility] 10/13/2024 10:53:54 10/14/1910/13/2024 HbA1c (hemo globi n A1c), blood HbA1C 14.3 % Not Available In-Office Order Internal Use Only DO Not Attach Compendium DO Not Attach Compendium, Do Not Delete/merge, [facility] 10/13/2024 10:53:54 03/12/20 23 03/12/2023 XR, shoul ana, 2 or more view No observ ation record ed. [email or web address] [place] [address] [address], [place], [address], 03/20/2023 08:19:38 03/13/20 23 03/12/2023 XR, shoul ana, 2 or more view No observ ation record ed. [email or web address], [place], [address], 03/13/2023 17:04:42 06/07/19 24 04/26/2023 MRI, shoul ana, w/o contr ast No observ ation record ed. [address], [place], [address], 06/24/2023 09:12:03 06/23/19 24 06/23/2023 XR, shoul ana, 2 or more view No observ ation record ed. [address], [place], [address], 06/25/2023 16:24:05 Result Notes None recorded. Problems Name Problem SNOMED Code Status Onset Date Resolution Date Notes Provider Name and Address Organization Details Recorded Time Upper respirato ry infection 30017902 Completed 201602/11/2020 HEATHER DOSHI Attn: Accounting ,[address] [place], [address] , [place] [facility] 0 13:51:04 Body mass index 30+ - obesity 332878021 Active 2017 Iona Turner PA-C Attn: Accounting ,[address] [place], [address] , [place] [facility] 8 14:12:25 Noncompli ance with treatment 1540450 Completed 201708/26/2020 Shade malcolm, [place] [facility] 1 07:26:42 Fibromyal obdulia 887625755 Active 2018 Taz Wagner PA-C Attn: Accounting ,[address] [place], [address] , [place] [facility] 9 10:31:35 Acute urinary tract infection 367887211 Active 2018 Taz Wagner PA-C Attn: Accounting ,[address] [place], [address] , [place] [facility] 9 10:31:43 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 728862743 Active 2020 Shade malcolm, [place] [facility] 1 07:27:57 Neuropath y 304092622 Active 2022 HEATHER DOSHI Attn: Accounting ,[address] [place], [address] , [place] [facility] 3 13:10:58 Pain of right shoulder joint 81218041635 961218 Active 2022 HEATHER DOSHI Attn: Accounting ,[address] [place], [address] , [place] [facility] 3 15:01:32 Type 2 diabetes mellitus 97854439 Active 2022 HEATHER DOSHI Attn: Accounting ,[address] [place], [address] , [place] [facility] 3 15:01:34 Full thickness rotator cuff tear 101889219 Active 2023 HEATHER DOSHI Attn: Accounting ,[address] [place], [address] , [place] [facility] 4 09:13:38 Uncontrol led type 2 diabetes mellitus 131776096 Active 2024 HEATHER DOSHI Attn: Accounting ,[address] [place], [address] , [place] [facility] 5 11:12:24 Diabetes mellitus 68638479 Active Katiana Mcguire LPN [place], [place] [facility] 6 11:44:35 Menopause symptoms present Active Katiana Mcgu[place] LPN [place] [facility] 6 11:44:35 Anxiety 86153883 Active Katiana Mcgu[place] LPN [place] [facility] 6 11:44:35 Pain in pelvis 40907123 Completed 08/26/2020 Shade [place] [facility] 1 07:26:54 Increased liver function 71562617 Completed 08/26/2020 Shade [place] [facility] 1 07:27:06 Cervicova ginal cytology: High grade squamous intraepit helial lesion or carcinoma 764220789 Active Katiana Mcgu[place] LPN [place] [facility] 6 11:44:35 Insomnia 784359124 Completed 08/26/2020 Sh[place] [facility] 1 07:27:01 High grade squamous intraepit helial lesion on cervical Papanicol aou smear 79279441449 107 Completed 08/26/2020 [place] [facility] 1 07:27:18 Cervical intraepit helial neoplasia grade 2 588575554 Completed 08/26/2020 [place] [facility] 1 07:27:27 Generaliz ed aches and pains 99931682 Completed 201608/26/2020 [place] [facility] 1 07:27:11 Screening for malignant neoplasm of breast Completed 201608/26/2020 [place] [facility] 1 07:26:49 Screening for malignant neoplasm of colon Completed 201602/11/2020 HEATHER DOSHI Attn: Accounting ,[address] [place], [address] , [facility] 0 13:51:07 Obesity 726430049 Completed 201607/15/2017 Iona Turner PA-C Attn: Accounting ,[address] [place], [address] , [place] [facility] 8 14:12:10 Hyperlipi demia 89384251 Active 2016 Iona Turner PA-C Attn: Accounting ,[address] [place], [address] , [facility] 7 17:18:34 Allergic dispositi on 459809990 Completed 201608/26/2020 Shade Golden[place], [place] [facility] 1 07:27:40 Problem Notes None recorded. Procedures Surgical History Date Name Laterality Status Provider Name and Address Organization Details Recorded Time 1 Colposcopy completed HEATHER REDDY Attn: Accounting,[address], [place], [address], [facility] 08/04/2020 14:55:01 1 Date of Last Pap Smear completed Mari aIsabel Cervantes MA [facility] 07/08/2020 14:54:45 6 Colposcopy completed Fernandez Chan [facility] 01/11/2016 18:30:59 3 Caesarean Section completed Lana Coughlin MA [facility] 01/11/2016 10:50:15 Imaging Results None recorded. Procedure Notes None recorded. Medical Equipment None Reported. Allergies No known drug allergies Medications Name Sig Start Date Stop Date Status Note LastModified by Organization Details LastModified Time compound blayneet 06/27 completed Not Available Not Available Not Available multivitami n tablet Take 1 tablet every day by oral route. 06/27 completed Not Available Not Available Not Available cyclobenzap rine 10 mg tablet TAKE 1 TABLET BY MOUTH THREE TIMES DAILY NEEDED FOR MUSCLE SPASM 01/27 completed Not Available Not Available Not Available atorvastati n 40 mg tablet Take 1 tablet every day by oral route in the evening. 04/16 completed Not Available Not Available Not Available methocarbam ol 500 mg tablet TAKE 1 TABLET BY MOUTH THREE TIMES DAILY 08/13 completed Not Available Not Available Not Available metformin 500 mg tablet Take 1 tablet twice a day by oral route. 09/28 completed Not Available Not Available Not Available atorvastati n 80 mg tablet TAKE ONE TABLET BY MOUTH EVERY EVENING FOR CHOLESTER OL active Not Available Not Available No t Available venlafaxine ER 37.5 mg capsule,ext ended release 24 hr Take 1 capsule every day by oral route for 90 days. 08/13 completed Not Available Not Available Not Available paroxetine 10 mg tablet Take 1 tablet every day by oral route. 12/25 completed Not Available Not Available Not Available trazodone 50 mg tablet Take 1 tablet every day by oral route. 08/18 completed Not Available Not Available Not Available phenazopyri dine 200 mg tablet Take 1 tablet 3 times a day by oral route for 2 days. 09/23 completed Not Available Not Available Not Available simvastatin 10 mg tablet Take 1 tablet every day by oral route for 30 days. 03/21 completed Not Available Not Available Not Available metronidazo le 500 mg tablet Take 1 tablet twice a day by oral route for 7 days. 09/23 completed Not Available Not Available Not Available hydroxyzine HCl 50 mg tablet Take 1 tablet twice a day by oral route as needed. 04/16 completed Not Available Not Available Not Available ciprofloxac in 500 mg tablet Take 1 tablet every 12 hours by oral route for 10 days. 07/09 completed Not Available Not Available Not Available sulfamethox azole 800 mg-trimetho prim 160 mg tablet Take 1 tablet every 12 hours by oral route for 10 days. 07/09 completed Not Available Not Available Not Available aspirin 81 mg tablet,grady yed release TAKE ONE TABLET BY MOUTH EVERY MORNING TO PREVENT STROKE active Not Available Not Available No t Available tramadol 50 mg tablet Take 1 tablet every 6 hours by oral route as needed. 02/10 completed Not Available Not Available Not Available simvastatin 40 mg tablet TAKE ONE TABLET BY MOUTH EVERY EVENING FOR CHOLESTER OL 05/28 completed Not Available Not Available Not Available glimepiride 2 mg tablet Take 2 tablets twice daily by oral route 10/15 completed Not Available Not Available Not Available glimepiride 1 mg tablet Take 1 tablet every day by oral route. 12/25 completed Not Available Not Available Not Available ciclopirox 8 % topical solution APPLY TO THE AFFECTED AREA(S) BY TOPICAL ROUTE ONCE DAILY PREFERABL Y AT BEDTIME OR 8 HOURS BEFORE WASHING 03/21 completed Not Available Not Available Not Available Nitrostat 0.4 mg sublingual tablet 09/06 completed Not Available Not Available Not Available temazepam 30 mg capsule 09/06 completed Not Available Not Available Not Available paroxetine 20 mg tablet Take 1 tablet every day by oral route. 07/09 completed Not Available Not Available Not Available simvastatin 20 mg tablet Take 1 tablet every day by oral route for 30 days. 08/18 completed Not Available Not Available Not Available erythromyci n 5 mg/gram (0.5 %) eye ointment 01/03 completed Not Available Not Available Not Available metformin 1,000 mg tablet TAKE ONE TABLET BY MOUTH TWICE DAILY EVERY MORNING AND AT BEDTIME. WITH MEALS FOR DIABETES active Not Available Not Available No t Available glimepiride 4 mg tablet TAKE ONE TABLET BY MOUTH TWICE DAILY EVERY MORNING AND AT BEDTIME. FOR DIABETES active Not Available Not Available No t Available ibuprofen 400 mg tablet Take 1 tablet every 6 hours by oral route as needed. 03/21 completed Not Available Not Available Not Available docusate sodium 100 mg capsule TAKE 1 CAPSULE BY MOUTH ONCE DAILY 11/06 completed Not Available Not Available Not Available gabapentin 300 mg capsule TAKE ONE CAPSULE BY MOUTH THREE TIMES DAILY 10/13 completed Not Available Not Available Not Available diclofenac sodium 75 mg tablet,grady yed release Take 1 tablet twice a day by oral route. 07/09 completed Not Available Not Available Not Available hydroxyzine HCl 25 mg tablet Take 1 tablet twice a day by oral route for 30 days. 11/06 completed Not Available Not Available Not Available alcohol swabs USE TO CLEAN INJECTION SITE PRIOR TO TESTING BLOOD SUGAR AND/OR INJECTING INSULIN active Not Available Not Available No t Available ibuprofen 600 mg tablet TAKE 1 TABLET BY MOUTH EVERY 6 HOURS NEEDED FOR PAIN 03/21 completed Not Available Not Available Not Available polyethylen e glycol 3350 17 gram/dose oral powder MIX 17 GRAMS (1 CAPFULL) IN 8 OUNCES OF LIQUID AND DRINK ONCE EVERY DAY FOR CONSTIPAT ION NEEDED active Not Available Not Available No t Available albuterol sulfate HFA 90 mcg/actuati on aerosol inhaler Inhale 2 puffs every 4 hours by inhalatio n route. 01/27 completed Not Available Not Available Not Available ketoconazol e 2 % topical cream APPLY TO THE AFFECTED AREA(S) BY TOPICAL ROUTE ONCE DAILY 01/27 completed Not Available Not Available Not Available clotrimazol e 1 % topical cream APPLY TO THE AFFECTED AND SURROUNDI NG AREAS OF SKIN BY TOPICAL ROUTE 2 TIMES PER DAY IN THE MORNING AND EVENING 01/27 completed Not Available Not Available Not Available loratadine 10 mg tablet Take 1 tablet every day by oral route. 04/16 completed Not Available Not Available Not Available naproxen 500 mg tablet TAKE 1 TABLET BY MOUTH TWICE DAILY 01/27 completed Not Available Not Available Not Available metoclopram kesha 10 mg tablet 07/09 completed Not Available Not Available Not Available tobramycin 0.3 %-dexametha sone 0.1 % eye drops,suspe nsion INSTILL 1 DROP INTO AFFECTED EYE(S) BY OPHTHALMI C ROUTE EVERY 6 HOURS 10/15 completed Not Available Not Available Not Available ertapenem 1 gram solution for injection 11/06 completed Not Available Not Available Not Available Alcohol, Rubbing 70 % solution 06/27 completed Not Available Not Available Not Available nitrofurant oin monohydrate /macrocryst als 100 mg capsule Take 1 capsule every 12 hours by oral route for 5 days. 10/31 completed Not Available Not Available Not Available Lyrica 50 mg capsule Take 1 capsule every day by oral route at bedtime for 7 days. 07/09 completed Not Available Not Available Not Available Lyrica 150 mg capsule Take 1 capsule twice a day by oral route for 30 days. 07/09 completed Not Available Not Available Not Available Levemir U-100 Insulin 100 unit/mL subcutaneou s solution Inject 15 units by subcutane ous route. 08/13 completed Not Available Not Available Not Available Levemir FlexPen 100 unit/mL (3 mL) solution subcutaneou s insulin pen INJECT 40 UNITS UNDER THE SKIN EVERY TWELVE HOURS 10/13 completed Not Available Not Available Not Available Januvia 100 mg tablet TAKE ONE TABLET BY MOUTH EVERY MORNING FOR DIABETES active Not Available Not Available No t Available calcium 600 mg (as carbonate)- vitamin D3 10 mcg (400 unit) tablet TAKE ONE TABLET BY MOUTH TWO TIMES A DAY. EVERY MORNING & EVERY EVENING FOR VITAMIN DEFICIENC Y active Not Available Not Available No t Available peg 3350 240 gram-electr olytes 22.72 gram-6.72 g-5.84 g powdr for soln 07/09 completed Not Available Not Available Not Available Lantus Solostar U-100 Insulin 100 unit/mL (3 mL) subcutaneou s pen INJECT 50 UNITS UNDER THE SKIN ONCE EVERY DAY DIRECTED FOR DIABETES active Not Available Not Available No t Available diclofenac 1 % topical gel APPLY 2 GRAM TO THE AFFECTED AREA(S) BY TOPICAL ROUTE 4 TIMES PER DAY 07/09 completed Not Available Not Available Not Available Suprep Bowel Prep Kit 17.5 gram-3.13 gram-1.6 gram oral solution Take 300 mL by oral route for 1 day. 07/09 completed Not Available Not Available Not Available Aerochamber Plus Flow-Vu USE DIRECTED 06/27 completed Not Available Not Available Not Available linagliptin 5 mg tablet Take 1 tablet every day by oral route for 30 days. 09/14 completed Not Available Not Available Not Available Accu-Chek FastClix Lancing Device 04/09 completed Not Available Not Available Not Available OneTouch Verio test strips USE DIRECTED THREE TIMES DAILY 2024 active Not Available Not Available Not Avai lable TRUEplus Lancets 28 gauge USE TO CHECK BLOOD SUGAR 2024 active Not Available Not Available Not Avai lable Victoza 3-Abhay 0.6 mg/0.1 mL (18 mg/3 mL) subcutaneou s pen injector Inject 1.2 mg every day by subcutane ous route. 01/27 completed Not Available Not Available Not Available Jardiance 25 mg tablet TAKE 1 TABLET BY MOUTH ONCE DAILY 12/21 completed Not Available Not Available Not Available Trulicity 1.5 mg/0.5 mL subcutaneou s pen injector Inject 1.5 mg every week by subcutane ous route. 10/13 completed Not Available Not Available Not Available Trulicity 0.75 mg/0.5 mL subcutaneou s pen injector Inject 0.75 mg every week by subcutane ous route. 01/27 completed Not Available Not Available Not Available TRUEplus Pen Needle 31 gauge x 5/16 USE DIRECTED DAILY active Not Available Not Available No t Available TRUEplus Pen Needle 31 gauge x 3/16 USE TO INJECT TWICE DAILY active Not Available Not Available No t Available TRUEplus Pen Needle 32 gauge x 5/32 USE TO INJECT TWO TIMES A DAY 2024 active Not Available Not Available Not Avai lable Ozempic 0.25 mg or 0.5 mg (2 mg/1.5 mL) subcutaneou s pen injector Inject 0.25 mg every week by subcutane ous route. 05/22 completed Not Available Not Available Not Available OneTouch Ultra Blue Test Strip Take 1 strip 3 times a day by miscell. route for 30 days. 06/27 completed Not Available Not Available Not Available Accu-Chek Fastclix Lancet Drum 07/09 completed Not Available Not Available Not Available OneTouch Ultra2 Meter USE TO USE TO TEST BLOOD SUGAR BLOOD SUGAR active Not Available Not Available No t Available OneTouch Delica Plus Lancet 33 gauge USE DIRECTED TO TEST BLOOD SUGAR THREE TIMES A DAY 06/27 completed Not Available Not Available Not Available Tab-A-Oxana 400 mcg tablet TAKE ONE TABLET BY MOUTH ONCE EVERY DAY AFTER EATING FOR VITAMIN DEFICIENC Y active Not Available Not Available No t Available Ozempic 0.25 mg or 0.5 mg (2 mg/3 mL) subcutaneou s pen injector Inject by subcutane ous route for 28 days. 05/22 completed Not Available Not Available Not Available OneTouch UltraSoft 2 Lancet 30 gauge USE TO CHECK BLOOD SUGAR DIRECTED active Not Available Not Available No t Available Vitals Date Recorded Body height Body mass index (BMI) Body weight Heart rate Oxygen saturation Oxygen saturation in Arterial blood by Pulse oximetry Systolic And Diastolic Provider Name and Address Organization Details Last Updated DateTime 4 156.85 cm 31 kg/m2 13430.2 7 g 78 /min 99 % 99 % 108/60 mm[Hg] Radha Ramos MA [facility] 4 09:48:29 Date Recorded Body height Body mass index (BMI) Body weight Heart rate Oxygen saturation Oxygen saturation in Arterial blood by Pulse oximetry Systolic And Diastolic Provider Name and Address Organization Details Last Updated DateTime 4 156.85 cm 30.6 kg/m2 45234.3 3 g 75 /min 98 % 98 % 128/76 mm[Hg] Radha Ramos MA [facility] SI 4 09:15:26 Date Recorded Body height Body mass index (BMI) Body weight Heart rate Oxygen saturation Oxygen saturation in Arterial blood by Pulse oximetry Systolic And Diastolic Provider Name and Address Organization Details Last Updated DateTime 5 156.85 cm 27.5 kg/m2 31124.2 6 g 70 /min 98 % 98 % 113/66 mm[Hg] Radha Ramos MA [facility] 5 10:50:48 Date Recorded Body height Body mass index (BMI) Body weight Heart rate Oxygen saturation Oxygen saturation in Arterial blood by Pulse oximetry Systolic And Diastolic Provider Name and Address Organization Details Last Updated DateTime 4 156.85 cm 28.8 kg/m2 44145.5 1 g 75 /min 98 % 98 % 123/75 mm[Hg] Radha Ramos MA [facility] 4 10:40:28 Date Recorded Body height Body mass index (BMI) Body weight Heart rate Oxygen saturation Oxygen saturation in Arterial blood by Pulse oximetry Systolic And Diastolic Provider Name and Address Organization Details Last Updated DateTime 3 156.85 cm 31.2 kg/m2 26272.1 1 g 89 /min 98 % 98 % 112/80 mm[Hg] Radha Ramos MA [facility] 3 14:15:53 Social History Question Answer Notes LastModified by Organizat ion Details LastModified Time Tobacco Smoking Status [facility] 14:41:37 Do You Have An Advance Directive? No Information not available 09/07/2015 Is Blood Transfusion Acceptable In An Emergency? Yes Information not available 01/11/2016 What Is Your Level Of Caffeine Consumption? Occasional Coffee. Information not available 06/03/2020 How Much Tobacco Do You Chew? None Information not available 09/07/2015 In The 14 Days Before Symptom Onset, Have You Had Close Contact With A Laboratory-confi rmed COVID-19 While That Case Was Ill? No Information not available 10/05/2020 In The 14 Days Before Symptom Onset, Have You Had Close Contact With A Person Who Is Under Investigation For COVID-19 While That Person Was Ill? No Information not available 10/05/2020 Have You Been To An Area Known To Be High Risk For COVID-19? No Information not available 10/05/2020 What Type Of Diet Are You Following? REGULAR Information not available 09/07/2015 Which Illicit Or Recreational Drugs Have You Used? None Information not available 01/11/2016 Are There Any Guns Present In Your Home? No Information not available 09/07/2015 Hard Of Hearing Or Deaf In One Or Both Ears? No Information not available 09/07/2015 Legally Blind In One Or Both Eyes? No Information not available 09/07/2015 Live Alone Or With Others? With Others And Children Information not available 09/07/2015 Marital Status Informatio n not available 09/07/2015 Do You Have A Medical Power Of Clock Repairer? No [email or web address] Information not available 11/21/2022 What Was The Date Of Your Most Recent Tobacco Screening? 10/13/2024 Information not available 10/13/2024 How Many Children Do You Have? 4 Information not available 09/07/2015 Performs Monthly Self-breast Exam? Yes Information not available 09/07/2015 Seat Belts Used Routinely Yes Information not available 09/07/2015 Are You Sexually Active? No Information not available 01/11/2016 Smoke Alarm In Home Yes Information not available 09/07/2015 Do You Have Smoke And Carbon Monoxide Detectors In Your Home? Yes Information not available 07/17/2021 Are You Passively Exposed To Smoke? No Information not available 07/17/2021 How Much Tobacco Do You Smoke? No Information not available 09/07/2015 General Stress Level Medium Information not available 07/10/2019 Do You Use Sunscreen Routinely? No Information not available 09/07/2015 Has Tobacco Cessation Counseling Been Provided? Yes Information not available 07/17/2021 On What Date Was Tobacco Cessation Counseling Provided? 10/13/2024 Information not available 10/13/2024 Sex: Female Functional Status Question Answer Note LastModified by Organizat ion Details LastModified Time What is your level of alcohol consumption? None Information not available 02/11/2020 Do you or have you ever used smokeless tobacco? Never used smokeless tobacco Information not available 07/10/2019 Are you currently employed? Yes Information not available 09/07/2015 Are you able to care for yourself? Yes Information not available 07/10/2019 Do you or have you ever used e-cigarettes or vape? Never used electronic cigarettes Information not available 07/10/2019 What is your exercise level? None Information not available 02/11/2020 Mental Status None recorded. Family History Relationship Description Onset Age of this Age Resolved Age Notes LastModified by Organization Details LastModified Time Mother Malignant neoplastic disease deceas ed 1991 [email or web address] Not available 01/25/2016 11:44:36 Medical History Condition Response Coronary Artery Disease N Other N High Blood Pressure N Atrial Fibrillation N Breast Cancer N Lung Disease N Depression N COPD N Blood Clots N Breast Problem N Anesthesia Complications N Headaches/Migraines N Anxiety Disorder N Muscle, Joint, or Bone Problems N Polyps N Infertility N Acid Reflux (GERD) N Cancer N Stroke N ADHD N Endometriosis N High Cholesterol N Liver Disease N Schizophrenia N Headaches N Thyroid Problems N Kidney or Bladder Problems N GI Problems N Acne N Skin Problems N Eating Disorder N Anemia N Heart Attack ([place]) N Ovarian Cancer N Diabetes Y Blood Transfusions N Seizures/Epilepsy N Abuse/Domestic Violence N Asthma N Allergies N Substance Abuse N Hepatitis N Heart Disease N Pre-Eclampsia N Osteoporosis N Heart Failure N Gynecological History Statement/Question Response Abnormal Pap Yes Flow Moderate Date of LMP 07/08/2020 On BCP's at Conception? N STIs/STDs N Duration of Flow (days) 4 Most Recent Mammogram Age at Menarche 16 Current Control Method Tubal Ligat ion Age at First Child 17 If Post Menopausal, Age at Menopause 51 Sexually Active? Y Menses Monthly N Date of Last Pap Smear 07/08/2020 Sexual Problems? Y LMP Definite Desired Control Method None Obstetrics History GPAL:G 5 P 5 0 0 4 Type Value Multiple Births 0 Full Term 5 Induced 0 Spontaneous 0 Premature 0 Living 4 Ectopics 0 Total 5 Immunizations Vaccine Type Date Status Note Provider Nam e and Address Organization Details Recorded Time COVID-19, mRNA, LNP-S, PF, 100 mcg/0.5mL dose or 50 mcg/0.25mL dose 1 completed Radha Ramos MA null, [place] - [facility] 10/05/2020 14:59:35 Tdap 6 completed Not Available [facility] 05/16/2019 02:31:10 COVID-19, mRNA, LNP-S, PF, 100 mcg/0.5mL dose or 50 mcg/0.25mL dose 1 completed Not Available [facility] 10/13/2024 10:46:12 Pneumococcal conjugate PCV20, polysaccharide [id number] conjugate, adjuvant, PF 3 completed HEATHER DOSHI Attn: Accounting[address] [place], [address], [place] - [facility] 11/06/2022 13:08:56 Past Encounters Encounter ID Performer Location Encounter Start Date Encounter Closed Date Diagnosis/Indication Diagnosis SNOMED-CT Code Diagnosis ICD10 Code Diagnosis Note [id number] MD Dilma Finney (Adult Med) [address] [place] [address] [id number] 0 09/07/2015 14:10:23 09/07/2015 15:28:09 Menopause symptoms present 611170426 N95.1 Diabetes mellitus 117534 09 E11.9 Anxiety 97945297 F41.9 Pain in pelvis 43913909 R10.2 Will order pelvic US Adult heal th examination 650197133 Z00.01 50YO female here to establish care. Her two complaints today are menopause sx's and suprapubic pain. [id number] MD Dilma Finney (Adult Med) [address] [place] [address] [phone] 0 09/30/2015 10:21:05 09/30/2015 11:13:08 Screening for malignant neoplasm of breast 236392597 Z12.31 Gynecologi c examination 84176888 Z01.411 Pain in pelvis 62024223 R10.2 Patient given number for pelvic US [id number] MD Dilma Finney (Adult Med) [address] [place] [address] [id number] 0 10/13/2015 09:00:55 10/13/2015 09:45:13 Increased liver function 54644683 R94.5 Will order liver US Cervicovag inal cytology: High grade squamous intraepithelial lesion or carcinoma 896324122 R87.613 HGSIL and HPV positive - will refer to OBGYN Discussed her labs results Patient to make appointmen t with OBGYN for colposcopy Diabetes mellitus 189613 09 E11.9 Menopause symptoms present 128684774 N95.1 Anxiety 78516493 F41.9 [id number] [facility] [address] [place] [address] [id number] 0 01/04/2016 16:32:40 01/04/2016 17:23:41 Diabetes mellitus 66365351 E11.9 a1c: 6.6 Discussed that if she has adverse reactions to medication she needs to RTC Advised patient that we will try a different medication Will recheck a1c today Active or passive immunization 851317076 Z23 Menopause symptoms present 340195093 N95.1 Continue with paroxetine Insomnia 224322609 G47.0 0 Advised to purchase melatonin OTC because it has worked with her in the past Anxiety 42583638 F41.9 Patient does not want to see a counselor at this time Screening for malignant neoplasm of breast 698305793 Z12.31 Will give new order - never completed Increased liver function 83658578 R94.5 [place] order liver US [id number] [facility] [address] [place] [address] [id number] 0 01/11/2016 10:01:25 01/12/2016 11:32:08 High grade squamous intraepithelial lesion on cervical Papanicolaou smear 3280364511 9107 R87.511 [id number] [facility]PER[facility] [address] [place] [address] [phone] 0 01/25/2016 10:33:08 01/26/2016 15:57:33 Cervical intraepithelial neoplasia grade 2 892684248 N87.1 Discussed biopsy results of cervix with guzman coleman present. Will schedule LEEP of cervix. [id number] MD Dilma Finney (Adult Med) [address] [place] [address] [phone] 0 04/10/2016 16:26:56 04/10/2016 17:08:06 Diabetes mellitus 65541674 E11.9 a1c: 6.6Will give lab orders and to repeat labs prior to next appointmen t in 3 months Will refer to podiatryWi ll refer to opthalmolo gy Paronychia of toe 450891 002 L03.039 Will tx with abxAdvised to not cut her own toenails d/t her diabetes - will refer to podiatry Insomnia 038638321 G47.0 0 Will re-start trazodone 50mgNo screen time within an hour of bedNo caffeine close to bed timeTalked about good sleep hygeine and going to bed at the same time every night and waking up at the same time every morningFin d calming activies to do at night like crafting, reading, meditation [id number] MD Dilma Dutta (JACK TAMP OPERATOR) [address] [place] [address] [phone] 0 04/24/2016 14:08:20 04/27/2016 15:45:07 High grade squamous intraepithelial lesion on cervical Papanicolaou smear 5851427030 9107 R87.613 Counseled about HGSIL and HPV. Counseled about LEEP. Counseled about risk of infection, bleeding, blood transfusio n and its risks, damage to internal organs, indicated procedures including hysterecto my, PTL, Miscarriag es. She verbalized understand ing. Get medical clearance from PCP before LEEP Screening mammography 24 027896 Z12.31 [id number] MD Dilma Finney (Adult Med) [address] [place] [address] [phone] 05/31/2016 09:41:44 05/31/2016 14:17:34 Generalized aches and pains 28971676 R52 Will initiate diclofenac BIDAdvised of risk of heart issues with medication and patient would like to proceed Anxiety 03592679 F41.9 Patient does not want to see a counselor at this time Menopause symptoms present 442505127 N95.1 Continue with paroxetine Insomnia 848206253 G47.0 0 c/w trazodone 50mg qPM No screen time within an hour of bedNo caffeine close to bed timeTalked about good sleep hygeine and going to bed at the same time every night and waking up at the same time every morningFin d calming activies to do at night like crafting, reading, meditation Diabetes mellitus 091124 09 E11.9 a1c: 6.6Given labs again - advised to complete them in 3 weeks Will give number to wilmar nicholson [id number] [facility] [address] [place] [address] [phone] 0 06/26/2016 15:54:50 06/26/2016 16:22:31 Diabetes mellitus 88054309 E11.9 a1c: 6.6 - will restart metforminG iven labs again - advised to complete them in 3 weeks Will give number to wilmar nicholson Generalize d aches and pains 91844093 R52 Will initiate diclofenac BIDAdvised of risk of heart issues with medication and patient would like to proceed Menopause symptoms present 152077888 N95.1 Continue with paroxetine Insomnia 367942336 G47.0 0 c/w trazodone 50mg qPM No screen time within an hour of bedNo caffeine close to bed timeTalked about good sleep hygeine and going to bed at the same time every night and waking up at the same time every morningFin d calming activies to do at night like crafting, reading, meditation Anxiety 96266930 F41.9 Patient does not want to see a counselor at this time [id number] Isis Wagner [facility] (Adult [facility]) [address] [place] [address] [phone] 0 09/18/2016 15:42:34 09/18/2016 18:06:00 Diabetes mellitus 67753887 E11.9 last a1c: 6.6 - metformin 500mg BIDWill give number to wilmar Echavarria repeat annual labs at this time Discussed not drinking her calories Advised 30 minutes of exercise 5 days/week Advised 3 balanced meals with lots of fruits and vegetables Insomnia 867135363 G47.0 0 c/w trazodone 50mg qPM - per patient, working very well No screen time within an hour of bedNo caffeine close to bed timeTalked about good sleep hygeine and going to bed at the same time every night and waking up at the same time every morningFin d calming activies to do at night like crafting, reading, meditation Obesity 379962849 E66.9 Advised 30 minutes of exercise 5 days/week Advised to not drink her calories Advised 3 balanced meals/day with plenty of fruits and vegtables Menopause symptoms present 188077775 N95.1 Continue with paroxetine Generalize d aches and pains 06537928 R52 c/w diclofenac BID as neededAdvi sed of risk of heart issues with medication and patient would like to proceed Anxiety 34528233 F41.9 Patient does not want to see a counselor at this time Allergic disposition 609 695723 Z91.09 Screening for malignant neoplasm of colon 888679350 Z12.11 Screening for malignant neoplasm of breast 537797670 Z12.31 Will give new order - never completed [id number] MD Dilma Finney (Peds) [address] [place] [address] [id number] 0 09/28/2016 08:56:38 09/28/2016 12:18:31 Diabetes mellitus 30803081 E11.9 last a1c: 9.8 - metformin 1000mg BID and add glimepirid e 1mg QD WIll f/u with patient in person She is going to [place] for 1 month in 2 days RTC when you return from [place] Hyperlipidemia 18204575 E78.5 [id number] MD Dilma Finney (Adult Med) [address] [place] [address] [phone] 0 12/25/2016 09:23:27 12/25/2016 17:50:44 Hyperlipidemia 75837170 E78.5 WIll increase atorvastat in to 80mg qPM at this time Diabetes mellitus 052339 09 E11.9 last a1c: 8.3 - slightly improved - metformin 1000mg BID and increase glimepirid e to 2mg QD Schedule eye doctor appointmen t Menopause symptoms present 205949030 N95.1 Continue with paroxetine but will increase to 20mg - per patient, working well Generalize d aches and pains 19546591 R52 c/w diclofenac BID as neededAdvi sed of risk of heart issues with medication and patient would like to proceed Insomnia 330678591 G47.0 0 c/w trazodone 50mg qPM - per patient, working very well No screen time within an hour of bedNo caffeine close to bed timeTalked about good sleep hygeine and going to bed at the same time every night and waking up at the same time every morningFin d calming activies to do at night like crafting, reading, meditation Anxiety 14160426 F41.9 Patient does not want to see a counselor at this time Allergic disposition 609 198579 Z91.09 [id number] Desire david MD [facility] (Adult Med) [address] [place] [address] [phone] 0 04/16/2017 14:00:17 04/16/2017 14:59:37 Diabetes mellitus 40554654 E13.9 a1c: 9.8Advised patient that if her sugars continue to run >300 she needs to RTC and we need to initiate insulinDis cussed that at this time, her body may not be responding to oral medication s anymore and she will need the supplement al insulin RTC in 3 month or sooner if sugars are running >300 Hyperlipidemia 22136271 E78.5 c/w atorvastat in to 80mg qPM Obesity 767710577 E66.09 Advised 30 minutes of exercise 5 days/week Advised to not drink her calories Advised 3 balanced meals/day with plenty of fruits and vegetables Generalize d aches and pains 32339665 R52 c/w diclofenac BID as neededAdvi sed of risk of heart issues with medication and patient would like to proceed Insomnia 324444772 G47.0 0 c/w trazodone 50mg qPM - per patient, working very well No screen time within an hour of bedNo caffeine close to bed timeTalked about good sleep hygeine and going to bed at the same time every night and waking up at the same time every morningFin d calming activies to do at night like crafting, reading, meditation Menopause symptoms present 842570339 N95.1 Upper resp iratory infection 16310915 J06.9 Advised to drink plenty of waterAlter tatyana ibuprofen and tylenol for painRest Advised at this time there is no need for abx and she just needs to focus on staying hydrated and sleepRTC for any further issues or go to the ER or Urgent CareAdvise d to really push the water MD Dilma Kim (Adult Med) [address] [place] [address] 07/15/2017 11:00:23 07/15/2017 12:05:14 Diabetes mellitus 41390789 E13.9 a1c: 8.6 - slight improvemen t - c/w metformin 1000mg BID, Januvia 00mg QD, glimepirid e 4mg BIDAdvised patient that if her sugars continue to run >300 she needs to RTC and we need to initiate insulinDis cussed that at this time, her body may not be responding to oral medication s anymore and she will need the supplement al insulin RTC in 3 month or sooner if sugars are running >300 She wants to increase her exercise at this time to try to get her sugars down and knows that this is the last 3 months and after this if they're not down, we are going to need to go to insulin Menopause symptoms present 424402446 N95.1 Insomnia 811068861 G47.0 0 c/w trazodone 50mg qPM - per patient, working very well No screen time within an hour of bedNo caffeine close to bed timeTalked about good sleep hygeine and going to bed at the same time every night and waking up at the same time every morningFin d calming activies to do at night like crafting, reading, meditation Generalize d aches and pains 70038081 R52 c/w diclofenac BID as neededAdvi sed of risk of heart issues with medication and patient would like to proceed Hyperlipidemia 24696268 E78.5 c/w atorvastat in to 80mg qPM Screening for malignant neoplasm of breast 750726375 Z12.31 Will give new order - never completed Chalazion 5127444 H00.15 Advised to use drops QID; warm compress on eyeRTC if no improvemen t Body mass index 30+ - obesity 045598047 Z68.32 Advised 30 minutes of exercise 5 days/week Advised to not drink her calories Advised 3 balanced meals/day with plenty of fruits and vegetables [id number] KARINE Lua (Adult Med) [address] [place] [address] 10/15/2017 09:32:24 10/16/2017 09:29:05 Diabetes mellitus 65081444 E13.9 a1c: 8.6 - 3 months ago but she has been without medication for 2 months because she didn't know she needed to go back to the pharmacy every month to get her medication s - will restart metformin 1000mg BID, Januvia 100mg QD, glimepirid e 4mg BID Advised patient that if her sugars continue to run >300 she needs to RTC and we need to initiate insulinDis cussed that at this time, her body may not be responding to oral medication s anymore and she will need the supplement al insulin RTC in 3 month or sooner if sugars are running >300 Discussed with patient that she needs to always have her medication . Advised that if she questions or issues to contact here or the pharmacy but that her insurance will not pay for more than one month at a time of medication Menopause symptoms present 901337625 N95.1 Insomnia 841231227 G47.0 0 c/w trazodone 50mg qPM - per patient, since being out medication her insomnia is worsening No screen time within an hour of bedNo caffeine close to bed timeTalked about good sleep hygeine and going to bed at the same time every night and waking up at the same time every morningFin d calming activies to do at night like crafting, reading, meditation Generalize d aches and pains [id number] R52 c/w diclofenac BID as neededAdvi sed of risk of heart issues with medication and patient would like to proceed Hyperlipidemia 37046322 E78.5 c/w atorvastat in to 80mg qPM Body mass index 30+ - obesity 471493921 Z68.32 Advised 30 minutes of exercise 5 days/week Advised to not drink her calories Advised 3 balanced meals/day with plenty of fruits and vegetables Noncomplia nce with treatment 3683259 Z91.19 Advised she always needs to have her medication Discussed that uncontroll ed DM can cause kidney, heart, eye damage, stroke, Advised that her insurance has always only paid for 1 month of meds at a time and she needs to go to the pharmacy to get her meds monthly Screening for malignant neoplasm of colon 400399948 Z12.11 [id number] MD Dilma Kim (Adult Med) [address] [place] [address] 04/09/2018 11:01:29 04/10/2018 09:58:55 Diabetes mellitus 16857847 E13.9 a1c: 9.2 - patient wants three more months with metformin 1000mg BID, Januvia 100mg QD, glimepirid e 4mg BID - advised if numbers do not improve in 3 months will need to go to insulin Advised patient that if her sugars continue to run >300 she needs to RTC and we need to initiate insulinDis cussed that at this time, her body may not be responding to oral medication s anymore and she will need the supplement al insulin RTC in 3 month or sooner if sugars are running >300 Discussed with patient that she needs to always have her medication . Advised that if she questions or issues to contact here or the pharmacy but that her insurance will not pay for more than one month at a time of medication Menopause symptoms present [id number] N95.1 Insomnia 787624307 G47.0 0 c/w trazodone 50mg qPM - per patient, since being out medication her insomnia is worsening No screen time within an hour of bedNo caffeine close to bed timeTalked about good sleep hygeine and going to bed at the same time every night and waking up at the same time every morningFin d calming activies to do at night like crafting, reading, meditation Generalize d aches and pains 68710647 R52 c/w diclofenac BID as neededAdvi sed of risk of heart issues with medication and patient would like to proceed Hyperlipidemia 42421136 E78.5 c/w atorvastat in to 80mg qPM Body mass index 30+ - obesity 504067953 Z68.32 Advised 30 minutes of exercise 5 days/week Advised to not drink her calories Advised 3 balanced meals/day with plenty of fruits and vegetables Screening for malignant neoplasm of colon 121639057 Z12.11 Screening for malignant neoplasm of breast 285540843 Z12.31 Will give new order - never completed [id number] MD Dilma Motley (Adult Med) [address] [place] [address] 08/04/2018 09:53:59 08/05/2018 10:17:59 Acute urinary tract infection 103544710 N39.0 Fibromyalgia 865486301 M 79.7 Diabetes mellitus 194467 09 E11.9 Body mass index 30+ - obesity 469543750 Z68.30 Insomnia 489261023 G47.0 0 Anxiety 65429712 F41.9 Hyperlipidemia 96508744 E78.5 [id number] Betsy Mustafa MD [facility] (Adult Med) [address] [place] [address] 10/31/2018 16:31:46 11/03/2018 09:22:11 Diabetes mellitus 60076137 E11.9 Type 2 racquel betes mellitus 00483992 E11.9 Acute urin asl tract infection 591015251 N39.0 Fibromyalgia 832344342 M 79.7 Insomnia 540628124 G47.0 0 Hyperlipidemia 44080777 E78.5 [id number] Aicha Magaña MD [facility] [address] [place] [address] 07/10/2019 15:14:59 07/13/2019 09:21:44 Carpal tunnel syndrome 06887058 G56.01 Uncontroll ed type 2 diabetes mellitus 343380577 E11.65 Depression screening 171 917048 Z13.31 mildly positive test; will monitor. [id number] HEATHER DOSHI [facility] [address] [place] [address] 08/11/2019 09:43:41 08/19/2019 14:27:25 Uncontrolled type 2 diabetes mellitus 905530175 E11.65 Patient presents for one month f/u for DM. Last MONTH A1C 8.5. Goal is 7. She was started on jardiance as last month as insurance would no longer cover her januvia. She is not happy with medication as she is hvaing increased urination frequency. She wants to know if there is another option. We will try tradjenta. Her fasting sugars are 180 and she does not check other sugars. - stop januvia and start tradjenta 5 mg qd. Continue metformin 1000 mg bid, and glimepirid e bid - starting statin today - check sugars daily; goal fasting <130 and 1-2 hours after meal <180. call office if sugars falling under 70. Patient aware of hypoglycem ia symptoms. - discussed diet: avoid sugars, pasta, tortillas, bread, rice, potatoes - Excercise 30 min 5x week - diabetic eye exam - foot exam at next visit [id number] HEATHER DOSHI [facility] [address] [place] [address] 09/15/2019 09:37:09 09/16/2019 21:18:17 Uncontrolled type 2 diabetes mellitus 679245238 E11.65 Patient presents for one month f/u for DM. Last MONTH A1C 8.5. Goal is 7. Patient does not like tradjenta and wants to pay for januvia as she felt better on it. - stop tradjenta 5 mg qd and start januvia 100mg qd. Continue metformin 1000 mg bid, and glimepirid e bid - check sugars daily; goal fasting <130 and 1-2 hours after meal <180. call office if sugars falling under 70. Patient aware of hypoglycem ia symptoms. - discussed diet: avoid sugars, pasta, tortillas, bread, rice, potatoes - Excercise 30 min 5x week - diabetic eye exam - foot exam at next visit [id number] HEATHER DOSHI [facility] [address] [place] [address] 09/29/2019 13:37:51 10/01/2019 12:25:54 Pancreatitis 60189882 K85.90 Patient presents with abdominal pain after being admitted - saturday at [facility] for pancreatit is. CT showed no acute process or inflammati on. Lipase was elevated in 1000's. She also had slightly elevated liver enzymes. She was given IV fluids and kept NPO. No medication s were d/c. On review of medication I have advised patient to stop taking Januvia as it can increase chances of pancreatit is. She recently restarted medication 2 weeks ago. Will get additional labs to make sure lipase continues to normalize. AIC in hospital 7.8. Patietn asked to monitor sugar and if starts elevating will try a different oral medication or may switch to insulin. discussed with patient signs and symptoms to return to ER. - labs- tramadol prn for pain- continue hydrating- normal diet as tolerated [id number] HEATHER DOSHI [facility] [address] [place] [address] 02/11/2020 13:34:12 02/15/2020 14:17:20 Type 2 diabetes mellitus 01340936 E11.9 Patient with uncontroll ed DM presents for F/U. fasting BG 180 and after meals 240 drug regiment: Metformin 1000mg bid, glimepirid e 4mg bid, simvastati n 10 mg - check sugars daily; goal fasting <130 and 1-2 hours after meal <180. call office if sugars falling under 70. Patient aware of hypoglycem ia symptoms. - discussed diet: avoid sugars, pasta, tortillas, bread, rice, potatoes - Excercise 30 min 5x week - diabetic eye exam - foot exam at next visit Screening mammography 24 697068 Z12.31 due for mammogram Pain in pelvis 67832581 R10.2 Patient with history of cervical intraepith elial neoplasia stage 2 and no f/u presents with left lower quadrant pain radiation to back. Tenderness on palpation, no masses palpated. denies diarrhea, constipati on - CT scan Thromboemb olism of vein 494539665 I82.401 patient with right arm swelling and pain. no known injury, arm is warm . -US Pain of le ft hip joint 7797995392 80792 M25.552 left hip pain when walking and on exam she had tenderness to palpation [id number] HEATHER DOSHI [facility] [address] [place] [address] 03/21/2020 15:38:58 03/23/2020 15:41:20 Uncontrolled type 2 diabetes mellitus 479516133 E11.65 see below Type 2 racquel betes mellitus 46964381 E11.9 Patient with uncontroll ed DM presents for F/U. fasting BG 140 and after meals 160-180 drug regiment: Metformin 1000mg bid, glimepirid e 4mg bid, simvastati n 10 mg, januvia 100mg qd - check sugars daily; goal fasting <130 and 1-2 hours after meal <180. call office if sugars falling under 70. Patient aware of hypoglycem ia symptoms. - discussed diet: avoid sugars, pasta, tortillas, bread, rice, potatoes - Excercise 30 min 5x week - diabetic eye exam - foot exam at next visit Diabetic p eripheral neuropathy 568979005 E11.40 patient c/o nerve pain in arms and legs. Will start gabapentin 300mg tid. F/u 2-4 weeks. Cough 20449986 R05 [id number] HEATHER DOSHI [facility] [address] [place] [address] 06/03/2020 08:07:41 06/04/2020 20:17:07 Type 2 diabetes mellitus 40341770 E11.9 Patient with uncontroll ed DM presents for F/U. fasting BG 180 and after meals 240 drug regiment: Metformin 1000mg bid, glimepirid e 4mg bid, simvastati n 10 mg - check sugars daily; goal fasting <130 and 1-2 hours after meal <180. call office if sugars falling under 70. Patient aware of hypoglycem ia symptoms. - discussed diet: avoid sugars, pasta, tortillas, bread, rice, potatoes - Excercise 30 min 5x week - diabetic eye exam - foot exam at next visit Screening mammography 24 169368 Z12.31 due for mammogram [id number] EHATHER DOSHI [facility] [address] [place] [address] 06/09/2020 09:38:46 06/11/2020 15:01:13 Diabetes mellitus 68290884 E11.9 [id number] HEATHER REDDY (JACK TAMP OPERATOR) [address] [place] [address] 07/08/2020 14:32:31 07/15/2020 12:05:47 Gynecologic examination 86784574 Z01.419 -clinical breast & pelvic examinatio ns completed today, unremarkab le -cervical cancer screening: last Pap 09/30/2015 HGIL, HPV positive. Repeated today. -referral for screening mammogram issued for routine breast cancer screening -routine nuswab completed, treat as needed -Educated osteoporos is prevention including calcium rich diet, weight bearing exercise. Will start supplement . -RTC in 1yr Venereal d isease screening 829754766 Z11.3 Acute urin sal tract infection 135520061 N39.0 Irritative voiding symptoms with suprapubic tenderness on exam. UA positive for nitrites and leuks. Will treat empiricall y. Advised to increase water intake. Take abx as prescribed . Azo OTC for pain relief. Avoid sugary drinks. Discussed proper wiping techniques . Screening for malignant neoplasm of breast 918481646 Z12.31 Last mammogram last year at [facility], date unknown. Will obtain records. [id number] HEATHER REDDY (J[employer]AMP OPERATOR) [address] [place] [address] 07/26/2020 12:26:03 07/28/2020 13:37:08 High grade squamous intraepithelial lesion on cervical Papanicolaou smear 9078958710 9107 R87.613 Pap 07/08/20 HSIL & HPV+. Colposcopy performed today, see procedure note for more details. Will follow up with results. 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 Safe sex practices discussed. [id number] HEATHER REDDY (J[employer] OPERATOR) [address] [place] [address] 08/05/2020 09:55:20 08/09/2020 07:43:01 Cervical intraepithelial neoplasia grade III with severe dysplasia 938110271 D06.9 Colposcopy results: A. CERVIX BIOPSY: HIGH-GRADE (SEVERE) SQUAMOUS DYSPLASIA (SANCHO III). ACUTE AND CHRONIC CERVICITIS . B. ENDOCERVIC AL BIOPSY: SMALL DETACHED FRAGMENTS OF HIGH-GRADE DYSPLASTIC SQUAMOUS MUCOSA. Discussed results with patient and need for LEEP. Will set up at [facility] with Dr. Garcia. Repeat Pap 6 months after LEEP. [id number] HEATHER REDDY (JACK TAMP OPERATOR) [address] [place] [address] 09/23/2020 09:29:20 09/26/2020 14:24:23 Cervical intraepithelial neoplasia grade III with severe dysplasia 869431684 D06.9 Colposcopy results: A. CERVIX BIOPSY: HIGH-GRADE (SEVERE) SQUAMOUS DYSPLASIA (SANCHO III). ACUTE AND CHRONIC CERVICITIS . B. ENDOCERVIC AL BIOPSY: SMALL DETACHED FRAGMENTS OF HIGH-GRADE DYSPLASTIC SQUAMOUS MUCOSA.S/p LEEP 08/26/20. History of loop electrosurgical excision procedure [id number] 9102 Z98.890 Pathology: Endo and ectocervix without evidence of pathologic abnormalit y. Patient recovering well from procedure. Advised spotting/d ischarge for 6-8 weeks after procedure. RTC if symptoms worsen. Urinary incontinence 165 284149 R32 Frequency with incontinen ce since procedure that is improving. UA without evidence of infection. Likely related to straight cath in hospital. RTC if symptoms persist. [id number] HEATHER DOSHI [facility] [address] [place] [address] 10/05/2020 14:52:59 10/05/2020 17:24:33 Type 2 diabetes mellitus 93660358 E11.9 Patient with uncontroll ed DM presents for F/U. fasting BG 180 and after meals 240. compliant with medication . diet: glass of milk in the am, beans and two small tortillas for lunch, dinner usually milk or fruit. Drinks mainly water. Will likely initiate insulin IF A1C>9 drug regiment: Metformin 1000mg bid, glimepirid e 4mg bid, simvastati n 10 mg - check sugars daily; goal fasting <130 and 1-2 hours after meal <180. call office if sugars falling under 70. Patient aware of hypoclycem ic symptoms. - discussed diet: avoid sugars, pasta, tortillas, bread, rice, potatoes - exercise 30 min 5x week - diabetic eye exam due - foot exam done today Onychomycosis 973858728 B35.1 b/l onychomyco sis. would like solution before adding another oral medication . Obesity 446260503 E66.9 [id number] HEATHER DOSHI [facility] [address] [place] [address] 01/16/2021 08:01:32 01/25/2021 03:46:44 Pyelonephritis 01110992 B37.49 hospitaliz ed 8 days for pyelonephr itis requiring IV medication and serial CT scans for abscess. Patietn feeling much better today. Has IV line in arm where nurse comes twice weekly for medication s. Daughter injects medication on other days. She is no longer having pain but does feel weak. [id number] HEATHER DOSHI [facility] [address] [place] [address] 03/15/2021 14:02:37 03/20/2021 10:12:42 Type 2 diabetes mellitus 40164874 E11.9 Patient with uncontroll ed DM presents for F/U. fasting BG 180 and after meals 240. compliant with medication . diet: glass of milk in the am, beans and two small tortillas for lunch, dinner usually milk or fruit. Drinks mainly water. will increase insulin today. will work on taking away glimepirid e. she will bring sugar log on Saturday. drug regiment: Levemir 15 units and will increase to 18 units, Metformin 1000mg bid, glimepirid e 4mg bid, Januvia 100mg, simvastati n 20 mg - check sugars daily; goal fasting <130 and 1-2 hours after meal <180. call office if sugars falling under 70. Patient aware of hypoclycem ic symptoms. - discussed diet: avoid sugars, pasta, tortillas, bread, rice, potatoes - exercise 30 min 5x week - diabetic eye exam due - foot exam done 09/2020 Constipation 18522883 K5 9.00 - drink plenty of water- increase veggies and fruits- miralax prn [id number] HEATHER DOSHI [facility] [address] [place] [address] 06/19/2021 12:02:16 06/23/2021 09:34:20 Type 2 diabetes mellitus 12366981 E11.9 Patient with uncontroll ed DM presents for F/U. fasting BG 180 and after meals 240. compliant with medication . diet: glass of milk in the am, beans and two small tortillas for lunch, dinner usually milk or fruit. Drinks mainly water. will increase insulin today. will work on taking away glimepirid e. she will bring sugar log on Saturday. drug regiment: Levemir 15 units and will increase to 18 units, Metformin 1000mg bid, glimepirid e 4mg bid, Januvia 100mg, simvastati n 20 mg - check sugars daily; goal fasting <130 and 1-2 hours after meal <180. call office if sugars falling under 70. Patient aware of hypoclycem ic symptoms. - discussed diet: avoid sugars, pasta, tortillas, bread, rice, potatoes - exercise 30 min 5x week - diabetic eye exam due - foot exam done 09/2020 Screening for malignant neoplasm of colon 209177864 Z12.11 patient states this has been done. need record Pain in right hand 46616 95642 43435 M79.641 - xray- rice- nsaid 10g monofi lament sensation R foot abnormal 248349229 R20.8 abnormal monofilame nt exam abnormal b/l feet, Insomnia 953267743 G47.0 0 denies depression but having trouble sleeping. can lay in bed for up to one hour adn wakes up through night. Obesity 079624569 E66.9 Depression screening 171 248792 Z13.31 negative [id number] HEATHER DOSHI [facility] [address] [place] [address] 06/23/2021 09:30:27 06/23/2021 09:50:04 [id number] HEATHER ELIAS (Adult Med) [address] [place] [address] 06/27/2021 09:15:26 06/29/2021 13:01:25 Gynecologic examination 86554580 Z01.419 Here today for repeat pap smear, history of abnormal pap smear55 year old HF with a history of SANCHO III s/p LEEP procedure 1Last mammogram ost -menopause , LMP around age 51. history of tubal ligationCo mplaining of intermitte nt left lower quadrant pain- pap smear completed, will call with results- urine dipstick showed + nitrites, will send urine culture- will check records from her hospital visit in regarding to LLQ pain Venereal d isease screening 562571331 Z11.3 - nuswab completed during exam exam Cervicovag inal cytology: High grade squamous intraepithelial lesion or carcinoma 455792912 R87.613 She has h/o abnormal Pap 2016 for which she had colpo.Repe at pap smear 07/17 showed HSIL and HPV, colposcopy showed evidence of SANCHO III s/p LEEP procedure 07/2020.- repeat pap smear completed today Screening mammography 24 340709 Z12.31 Last mammogram 07/20/2020 eclined breast exam today- new referral given to patient today, call to schedule appointmen t Urge incon tinence of urine 44124135 N39.41 Complainin g of intermitte nt left lower quadrant pain and urinary urgency since she was discharged from [facility] 6 months ago.Denies current vaginal bleeding, pain with intercours e, dysuria, urinary frequency, and vaginal discharge. - UA showed nitrites today, will send for culture- will review hospital records Left lower quadrant pain 649250915 R10.32 Complainin g of intermitte nt left lower quadrant pain since she was discharged from [facility] 6 months ago. Notes she was hospitaliz ed for pyelonephr itis and kidney abscess at the time.Since discharge, she always has a mild dull pain present in the left lower quadrant but then will have episodes of severe pain. Admits to urinary urgency.Re peat CT scan 01/2021 showed resolution of infection and abscess- UA showed nitrites today, will send for culture, will call tomorrow for results- will review hospital records- f/u with PCP [id number] HEATHER DOSHI [facility] [address] [place] [address] 07/11/2021 09:05:53 07/12/2021 15:31:46 Adult health examination 890162689 Z00.00 [id number] HEATHER DOSHI [facility] [address] [place] [address] 07/17/2021 10:46:54 07/18/2021 07:11:41 Type 2 diabetes mellitus 69190481 E11.9 A1C 11 06/2021, not wnl. fasting BG 180 and after meals 240. compliant with medication . diet: glass of milk in the am, beans and two small tortillas for lunch, dinner usually milk or fruit. Drinks mainly water. will increase insulin today. will work on taking away glimepirid e. she will bring sugar log on Saturday. drug regiment: increase Levemir 25 units, Metformin 1000mg bid, glimepirid e 4mg bid, Apruvia 100mg, simvastati n 20 mg (increasin g to 40mg today 07/17/21 as >100). patient complaint with medication s. - check sugars daily; goal fasting <130 and 1-2 hours after meal <180. call office if sugars falling under 70. Patient aware of hypoclycem ic symptoms. - discussed diet: avoid sugars, pasta, tortillas, bread, rice, potatoes - exercise 30 min 5x week - diabetic eye exam due - foot exam done 05/2021, abnormal. referral for podiatry sent Screening for malignant neoplasm of colon 905227202 Z12.11 patient states this has been done. need record Insomnia 086003380 G47.0 0 Discussed sleep hygiene. trazadone did not work. trailing hydroxyzin e prn as venlafaxin e start to work. - no tv, electronic s in room - go to bed at patty time every night - Avoid eating 1-2 hours before bed - Do no have any caffeine after 3 pm - if unable to sleep she is to leave room and read for 15 minutes. May repeat this multiple times. Goal is not to associate room with anxiety or work Obesity 982592427 E66.9 BMI 31.9, - advised daily exercise- advised watching diet Depression screening 171 746789 Z13.31 negative Anxiety 23342345 F41.9 decreased sleep, anxiety, overwhelme d. worry about multiple things. Will start venlafaxin e as also having some hot flashes. The could be due to DM.- advised counseling -Patient was educated on his prescribed medication s, rationale for medication s, dosing indication s, adverse reactions, black box warning, dosing indication s, SE (e.g., decreased libido, weight gain, gynecomast ia, and galactorrh ea) and the risks and benefits. -Call center with questions/ concerns. Go to ER or call 911 for crisis (e.g., suicidal behaviors, suicidal ideations, intent or plan emerge). Additional ly, patient has suicide hotline #. - f/u one month - call with questions Memory impairment [id number] 006 R41.3 patient c/o of memory impairment . She has uncontroll ed DM, anxiety, and is not sleeping. She has normal recall memory from last few weeks. Normal drawing of clock-face with numbers. Normal recall of pencil, earring, shoe. Likely due to other factors and lack of sleep. f/u one month [id number] HEATHER DOSHI [facility] [address] [place] [address] 08/18/2021 10:49:29 08/21/2021 13:14:42 Type 2 diabetes mellitus 60663991 E11.9 A1C 11 06/2021, not wnl. fasting BG 140's and after meals 180-190. compliant with medication . diet: glass of milk in the am, beans and two small tortillas for lunch, dinner usually milk or fruit. Drinks mainly water. will increase insulin today. drug regiment: increase Levemir from 24 to 26 units, Metformin 1000mg bid, Jardiance 25mg qd - check sugars daily; goal fasting <130 and 1-2 hours after meal <180. call office if sugars falling under 70. Patient aware of hypoclycem ic symptoms. - discussed diet: avoid sugars, pasta, tortillas, bread, rice, potatoes - exercise 30 min 5x week - diabetic eye exam due, states it is done, need record - foot exam done 05/2021, abnormal. referral for podiatry sent Screening for malignant neoplasm of colon 998038814 Z12.11 patient states this has been done. need record Insomnia 950975381 G47.0 0 Discussed sleep hygiene. trazadone did not work. trailing hydroxyzin e prn as venlafaxin e start to work. - no tv, electronic s in room - go to bed at patty time every night - Avoid eating 1-2 hours before bed - Do no have any caffeine after 3 pm - if unable to sleep she is to leave room and read for 15 minutes. May repeat this multiple times. Goal is not to associate room with anxiety or work Obesity 070338826 E66.9 BMI 31.9, - advised daily exercise- advised watching diet Depression screening 171 081218 Z13.31 negative Anxiety 89885645 F41.9 sx improved. sleeping 7 hours. Anxiety is improved. continue same dose. - advised counseling -Patient was educated on his prescribed medication s, rationale for medication s, dosing indication s, adverse reactions, black box warning, dosing indication s, SE (e.g., decreased libido, weight gain, gynecomast ia, and galactorrh ea) and the risks and benefits.- Call center with questions/ concerns. Go to ER or call 911 for crisis (e.g., suicidal behaviors, suicidal ideations, intent or plan emerge). Additional ly, patient has suicide hotline #.- f/u one month- call with questions Uncontroll ed type 2 diabetes mellitus 659615494 E11.65 see below. stop glimepirid e. adding 15 units insulin. increasing statin [id number] RUSTY SOARES DPM [facility] [address] [place] [address] 09/06/2021 15:30:30 10/06/2021 14:18:53 Onychomycosis 942158544 B35.1 Tinea pedis 8272129 B35. 3 Diabetic p eripheral neuropathy 349560099 E11.40 [id number] HEATHER DOSHI [facility] [address] [place] [address] 12/21/2021 11:27:30 12/22/2021 12:57:17 Type 2 diabetes mellitus 75729427 E11.9 A1C 9.1% (11/2021) 11% (06/2021), not wnl. fasting BG 140's and after meals 180-190. compliant with medication . diet: glass of milk in the am, beans and two small tortillas for lunch, dinner usually milk or fruit. Drinks mainly water. will increase insulin today. drug regiment: increase Levemir from 26 to 29 units, Metformin 1000mg bid, Januvia 25mg qd to jardiance (cannot tolerate jardiance) - check sugars daily; goal fasting <130 and 1-2 hours after meal <180. call office if sugars falling under 70. Patient aware of hypoclycem ic symptoms. - discussed diet: avoid sugars, pasta, tortillas, bread, rice, potatoes - exercise 30 min 5x week - diabetic eye exam due, states it is done, need record - foot exam done 05/2021, abnormal. referral for podiatry sent Obesity [id number] E66.9 BMI 31.9, - advised daily exercise- advised watching diet Anxiety 33918262 F41.9 sx improved. sleeping 7 hours. Anxiety is improved. continue same dose. - advised counseling -Patient was educated on his prescribed medication s, rationale for medication s, dosing indication s, adverse reactions, black box warning, dosing indication s, SE (e.g., decreased libido, weight gain, gynecomast ia, and galactorrh ea) and the risks and benefits.- Call center with questions/ concerns. Go to ER or call 911 for crisis (e.g., suicidal behaviors, suicidal ideations, intent or plan emerge). Additional ly, patient has suicide hotline #.- f/u one month- call with questions Uncontroll ed type 2 diabetes mellitus [id number] E11.65 see below. stop glimepirid e. adding 15 units insulin. increasing statin Pain of mu ltiple joints 75657497 M25.50 Low back pain 947342812 M54.50 Pain of ri ght shoulder joint [id number] 3989320 M25.511 right shoulder pain x months. normal strength. + impnegemnt syndrome. [id number] HEATHER DOSHI [facility] [address] [place] [address] 08/13/2022 12:16:22 08/13/2022 12:53:36 Type 2 diabetes mellitus 95189071 E11.9 A1C 12.1 (07/2022) 9.1% (11/2021) 11% (06/2021), not wnl. fasting BG 140's and after meals 180-190. compliant with medication . d will increase insulin today. discussed risk of stroke, heart attack, kidney damage, with uncontroll ed DM. drug regiment: increase Levemir from 26 to 29 units, Metformin 1000mg bid, Januvia 25mg qd to jardiance (cannot tolerate jardiance) - check sugars daily; goal fasting <130 and 1-2 hours after meal <180. call office if sugars falling under 70. Patient aware of hypoclycem ic symptoms. - discussed diet: avoid sugars, pasta, tortillas, bread, rice, potatoes - exercise 30 min 5x week - diabetic eye exam due, states it is done, need record - foot exam done 05/2021, abnormal. referral for podiatry sent Obesity 469367718 E66.9 BMI 31.9, - advised daily exercise- advised watching diet Anxiety 68563210 F41.9 sx improved. sleeping 7 hours. Anxiety is improved. continue same dose. - advised counseling -Patient was educated on his prescribed medication s, rationale for medication s, dosing indication s, adverse reactions, black box warning, dosing indication s, SE (e.g., decreased libido, weight gain, gynecomast ia, and galactorrh ea) and the risks and benefits.- Call center with questions/ concerns. Go to ER or call 911 for crisis (e.g., suicidal behaviors, suicidal ideations, intent or plan emerge). Additional ly, patient has suicide hotline #.- f/u one month- call with questions Uncontroll ed type 2 diabetes mellitus [id number] E11.65 29 units Pain of mu ltiple joints 00215161 M25.50 Low back pain 635278864 M54.50 Pain of ri ght shoulder joint 9777337138 9993198 M25.511 right shoulder pain x months. normal strength. + impnegemnt syndrome. Cough 74133297 R05.9 Left inguinal hernia 236 193206 K40.90 [id number] HEATHER DOSHI [facility] [address] [place] [address] 09/05/2022 10:08:22 09/05/2022 10:41:10 Uncontrolled type 2 diabetes mellitus 452579992 E11.65 increase insulin Type 2 racquel betes mellitus 94152974 E11.9 A1C 12.1 (07/2022) 9.1% (11/2021) 11% (06/2021), not wnl. fasting BG 140's and after meals 180-190. compliant with medication . d will increase insulin today. discussed risk of stroke, heart attack, kidney damage, with uncontroll ed DM. drug regiment: increase Levemir from 26 to 29 units, Metformin 1000mg bid, Januvia 25mg qd to jardiance (cannot tolerate jardiance) - check sugars daily; goal fasting <130 and 1-2 hours after meal <180. call office if sugars falling under 70. Patient aware of hypoclycem ic symptoms. - discussed diet: avoid sugars, pasta, tortillas, bread, rice, potatoes - exercise 30 min 5x week - diabetic eye exam due, states it is done, need record - foot exam done 05/2021, abnormal. referral for podiatry sent Pain of bi lateral hip joints [id number] 4280014 M25.551 having pain in hipsxray [id number] HEATHER DOSHI [facility] [address] [place] [address] 11/06/2022 09:17:38 11/06/2022 11:13:07 Type 2 diabetes mellitus 87398384 E11.9 A1C 9.9% (10/2022) 12.1 (07/2022) 9.1% (11/2021) 11% (06/2021), not wnl. fasting BG 140's and after meals 180-210. compliant with medication .will increase insulin today to 36 from 32. discussed risk of stroke, heart attack, kidney damage, with uncontroll ed DM. drug regiment: increase Levemir to 36 units, Metformin 1000mg bid, Januvia 100mg (cannot tolerate jardiance) Foot exam: abnormal, advised going back to podiatryEy e Exam: completed, normalAlb/ Cr: normalStat in: complaintp neumonia vaccine: 11/06/2022 Administra tion of pneumococcal vaccine 41886585 Z23 Onychomycosis 042588151 B35.1 f/u with podaitry Screening mammography 24 105058 Z12.31 due for mammogram Postmenopausal state 764 21838 Z78.0 refill Neuropathy 533749171 G62 .9 abnormal monofilame nt exam abnormal b/l feet on Obesity 664974077 E66.9 BMI 31.9, - advised daily exercise- advised watching diet [id number] RUSTY SOARES DPM [facility] [address] [place] [address] 11/21/2022 14:55:04 11/23/2022 10:42:57 Diabetes mellitus 19598936 E11.9 Onychomycosis 429332416 B35.1 Tinea pedis 0554819 B35. 3 Diabetic p eripheral neuropathy 363315482 E11.40 [id number] HEATHER DOSHI [facility] [address] [place] [address] 03/07/2023 16:00:49 03/07/2023 16:28:58 Type 2 diabetes mellitus 54587635 E11.9 A1C 12.1 % (02/2023) 9.9% (10/2022) 12.1 (07/2022) 9.1% (11/2021) 11% (06/2021), not wnl. fasting BG 140's and after meals 180-210. compliant with medication .will increase insulin today to 36 from 32. discussed risk of stroke, heart attack, kidney damage, with uncontroll ed DM.idrug regiment: increase Levemir to 36 units, Metformin 1000mg bid, Januvia 100mg (cannot tolerate jardiance) Foot exam: abnormal, advised going back to podiatryEy e Exam: completed, normalAlb/ Cr: normalStat in: complaintp neumonia vaccine: [id number] 11/06/2022 Neuropathy 710806112 G62 .9 abnormal monofilame nt exam abnormal b/l feet on Obesity 478805976 E66.9 BMI 31 - advised daily exercise- advised watching diet Pain of ri ght shoulder joint 8047326223 4865343 M25.511 right shoulder pain x months. normal strength. 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 fasting BG 104-140's and after meals 180-210. compliant with medication .will increase insulin today to 40 divided bid. discussed risk of stroke, heart attack, kidney damage, with uncontroll ed DM. add on glp and stop glimepirid e Patient denies fam hx of thyroid cancer, personal hx pancreatit is. Medication side effects were reviewed with patient and include DOMENICA, pancreatit is, nausea, vomiting, stomach upset. Patient was shown pen and was shown how to clean area, inject pen, and how often to administer . drug regiment: increase Levemir to 36 units, Metformin 1000mg bid, Januvia 100mg (cannot tolerate jardiance) Foot exam: abnormal, advised going back to podiatryEy e Exam: completed, normalAlb/ Cr: normalStat in: complaintp neumonia vaccine: [id number] 11/06/2022 Pain of ri ght shoulder joint [id number] 0346029 M25.511 right shoulder pain x months. normal strength. + impingemen t syndrome.l imited ROM to 90 degrees, normal hand gripxray shows OAPT not helping and unable to sleep from painorthoM RI [id number] HEATHER DOSHI [facility] [address] [place] [address] 05/22/2023 09:41:27 05/22/2023 10:13:55 Type 2 diabetes mellitus 09872390 E11.9 A1C 12.0 (04/11/23) 12.1 % (02/2023) 9.9% (10/2022) 12.1 (07/2022) 9.1% (11/2021) 11% (06/2021), not wnl. fasting BG 104-140's and after meals 180-210. compliant with medication .will increase insulin today to 40 divided bid. discussed risk of stroke, heart attack, kidney damage, with uncontroll ed DM. add on glp and stop glimepirid e Patient denies fam hx of thyroid cancer, personal hx pancreatit is. Medication side effects were reviewed with patient and include DOMENICA, pancreatit is, nausea, vomiting, stomach upset. Patient was shown pen and was shown how to clean area, inject pen, and how often to administer . drug regiment: increase Levemir to 40 units, Metformin 1000mg bid, Januvia 100mg (stop this since adding glp1)Foot exam: abnormal, advised going back to podiatryEy e Exam: completed, normalAlb/ Cr: normalStat in: complaintp neumonia vaccine: [id number] 11/06/2022 Pain of ri ght shoulder joint [id number] 9038445 M25.511 right shoulder pain x months. normal strength. + impingemen t syndrome.l imited ROM to 90 degrees, normal hand gripxray shows OAPT not helping and unable to sleep from painorthoM RI Hyperlipidemia 96350135 E78.5 [id number] HEATHER DOSHI [facility] [address] [place] [address] 06/24/2023 09:09:29 06/24/2023 09:44:38 Full thickness rotator cuff tear 629357640 M75.121 MRI R shoulder 03/2023: focal full-thick ness or near full-thick ness bursal surface tear of supraspina tus tendon at insertion Type 2 racquel betes mellitus 44528137 E11.9 A1C 12.0 (04/11/23) 12.1 % (02/2023) 9.9% (10/2022) 12.1 (07/2022) 9.1% (11/2021) 11% (06/2021), not wnl. fasting BG 104-140's and after meals 180-210. 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 She is given form tody with placed for BG for next week TID. she is to call if still >200. discussed risk of stroke, heart attack, kidney damage, with uncontroll ed DM. add on glp and stop glimepirid e Patient denies fam hx of thyroid cancer, personal hx pancreatit is. Medication side effects were reviewed with patient and include DOMENICA, pancreatit is, nausea, vomiting, stomach upset. Patient was shown pen and was shown how to clean area, inject pen, and how often to administer . drug regiment: increase Levemir to 40 units, Metformin 1000mg bid, Januvia 100mg (stop this since adding glp1)Foot exam: abnormal, advised going back to podiatryEy e Exam: completed, normalAlb/ Cr: normalStat in: complaintp neumonia vaccine: [id number] 11/06/2022 [id number] Stephen Lan MD [facility] [address] [place] [address] 01/28/2024 10:32:27 01/28/2024 16:26:55 Gynecologic examination 85741760 Z01.419 Here today for repeat pap smear, history of abnormal pap smear58 year old HF with a history of SANCHO III s/p LEEP procedure ast mammogram ost -menopause , LMP around age 51. history of tubal ligation - pap smear completed, will call with results- urine dipstick showed + nitrites, will send urine culture Screening mammography 24 297913 Z12.31 Last mammogram 2022 and 2020normal breast exam today- new referral given to patient today, call to schedule appointmen t Type 2 racquel betes mellitus 22780326 E11.9 A1C 12.0 (04/11/23) 12.1 % (02/2023) 9.9% (10/2022) 12.1 (07/2022) 9.1% (11/2021) 11% (06/2021), not wnl. fasting BG 104-140's and after meals 180-210. 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 She is given form tody with placed for BG for next week TID. she is to call if still >200. discussed risk of stroke, heart attack, kidney damage, with uncontroll ed DM. add on glp and stop glimepirid e drug regiment: increase Levemir to 40 units, Metformin 1000mg bid, Januvia 100mg (stop this since adding glp1)Foot exam: abnormal, advised going back to podiatryEy e Exam: completed, normalAlb/ Cr: normalStat in: complaintp neumonia vaccine: [id number] 11/06/2022 Overweight 089869772 E66 .3 [id number] Stephen Lan MD [facility] [address] [place] [address] 10/13/2024 10:43:52 10/13/2024 11:08:19 Overweight 922145666 E66.3 Uncontroll ed type 2 diabetes mellitus 931932685 E11.65 Patient has been in [place] for last few months and states she has been taking her insulin and metformin. She has not been checking her blood sugars often but when she does they are not controlled . States she did not go to the hospital while in [place]. A1C 14.3% )09/2024)c1 2.0 (04/11/23) 12.1 % (02/2023) 9.9% (10/2022) 12.1 (07/2022) 9.1% (11/2021) 11% (06/2021), not wnl. fasting BG 104-140's and after meals 180-210. 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 She is given form tody with placed for BG for next week TID. she is to call if still >200. discussed risk of stroke, heart attack, kidney damage, with uncontroll ed DM. add on glp and stop glimepirid e drug regiment: increase Levemir to 40 units, Metformin 1000mg bid,Foot exam: abnormal, advised going back to podiatryEy e Exam: completed, normalAlb/ Cr: normalStat in: complaintp neumonia vaccine: 11/06/2022 Chest pain 84151962 R07. 9 multiple episodes of chest pain with walking and lasts 3 minutes w/o sob. water helps her. Chronic constipation 236 717818 K59.09 - drink plenty of water- increase veggies and fruits- miralax prn Acute urin sal tract infection 366011499 N39.0 + culture Health Concerns Section Related Observation LastModified by Organization Detai ls LastModified Time None Recorded Concern Status LastModified by Organization Details LastModified Time None Recorded Advance Directives Directive N: Payers Insurance Date Sequence Insurance Name Policy Number Policy Correa Covered Member ID Correa Member ID Guarantor Name 10/13/2024 2 [employer] [place] (MEDICARE REPLACEMENT/ADVANT AGE) Maylin Lau [id number] Maylin Lau 10/13/2024 [place] Maylin Pritchard [id number] Maylin Lau 10/13/2024 1 [place] [facility] Maylin Pritchard [id number] Maylin Drivero 07/08/2020 SLIDING FEE SCHEDULE - DISCOUNT Maylin Drivero 09/22/2019 1 *SELF PAY* [place] 10/13/2024 1 [facility] PRIOR TO 10/27/2020 (MEDICAID REPLACEMENT - HMO) Maylin Macho [id number] Maylin Drivero 10/13/2024 1 [facility] PRIOR TO 10/27/2020 (MEDICAID REPLACEMENT - HMO) Maylin Mary onso [id number] Maylin Drivero 10/13/2024 1 [facility] ON OR AFTER 04/29/2020 - DUAL ELIGIBLE (MEDICARE REPLACEMENT/ADVANT AGE - HMO) Maylin Guillaumejennifer Lau [id number] Maylin Drivero 10/13/2024 1 [facility] (MEDICAID HMO) Maylin hoffmano [id number] Maylin Drivero 10/13/2024 1 [facility] (MEDICAID HMO) Maylin Macho [id number] Maylin Drivero 10/20/2024 1 [facility] ON OR AFTER 20 (MEDICAID REPLACEMENT - HMO) Maylin Guillaumeas Sid [id number] Maylin Drivero Notes Date Note Type Note Provider Name and Address Organization Details Recorded Time 04/11/2023 text/html 57 year HF with a history of SANCHO III s/p LEEP procedure 07/2020, DM2 (uncontrolled), obesity, hyperlipidemia presents for f/u one month f/u on DM BG still elevated at night 180 and >200. 104-130 in the morning. At this points will increase to 40 units divided bid and add on glp. no CI to GLP- pancreatitis, MEN or hx of thyroid cancer. She has one more week of PT but continues to have worsening pain. She would like ortho and and agrees to MRI. levemir: injecting 38 units HEATHER DOSHI Attn: Accounting[address] [facility], [place], [address], [place] [facility] 04/11/2023 15:02:16 05/22/2023 text/html 57 year HF with a history of SANCHO III s/p LEEP procedure 07/2020, DM2 (uncontrolled), obesity, hyperlipidemia presents for f/u on DM finished PT [facility] and missed appointment twice. for her shoulder. Feels PT made it much worse. 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 both shoulders are hurting now. today was only f/u on DM and will f/u on this next visit. BG still elevated at night 180 and >200. 104-130 in the morning. At this points will increase to 40 units divided bid and add on glp. no CI to GLP- pancreatitis, MEN or hx of thyroid cancer. She will stop DPPV if starts GLP-1. HEATHER DOSHI Attn: Accounting[address] [facility], [place], [address], [place] [facility] 05/28/2023 11:23:17 06/24/2023 text/html 57 year HF with a history of SANCHO III s/p LEEP procedure 07/2020, DM2 (uncontrolled), obesity, hyperlipidemia presents for f/u on DM finished PT [facility] and missed appointment twice. for her shoulder. Feels PT made it much worse. 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 both shoulders are hurting now. MRI shows full thickness tear. Has not seen ortho yet. She states pain is keeping her up at night. She is unable to work due to pain. SHe is unable to lift anything with right hand. C/O of left arm starting to hurt. BG still elevated at night 180 and >200. 104-130 in the morning. She never picked up trulicity. She does inject 40 units at night time. HEATHER DOSHI Attn: Accounting[address] [facility], [place], [address], [place] [facility] 06/24/2023 11:00:57 01/28/2024 text/html 58 year old HF here for pap and for refills I need refills before I go back to [place]. history of SANCHO III s/p LEEP procedure ast mammogram ost-menopause , LMP around age 51. history of tubal ligation c/o of increased urination. She has been in [place] with her dad who is sick for months. She leaves for tomorrow for some time again for an unknown period of time. She needs mediation refills. She states she has not had trulicity for months and ran out of insulin a few weeks ago. agrees to labs today. Has not been checking glucose. c/o of increased urination but denies cp, sob, weakness on one side, worst headache of her life. HEATHER DOSHI Attn: Accounting[address] [facility], [place], [address], [facility] 01/29/2024 13:27:52 10/13/2024 text/html 59 year HF with a history of SANCHO III s/p LEEP procedure 07/2020, DM2 (uncontrolled), obesity, hyperlipidemia presents for f/u on DM was in 7 months and returned 8 days ago. She states in [place] she was only taking her insulin 40 units at nighttime and also metformin. She stopped all her other medications. In [place] she did check her blood sugar and states the blood sugars were 252/300 every time she checked. She never followed up about this with her primary in [place]. She states she has been having episodes of chest pain and she has not had some in a few weeks. Chest pain is substernal without radiation. She states it happened a few times in [place] when she was walking and water helped with the pain. She states she never went to the ER and denies shortness of breath, palpitations. She does admit to being more fatigued than usual. On chart review she has lost much weight. HEATHER DOSHI Attn: Accounting[address] [facility], [place], [address], [facility] 10/19/2024 16:02:38 OBGyn Episode No OBEpisode recorded.
[2024-11-05 05:06] VITALS: BP 122/62
--- NOTE | 2024-11-05 05:08 | ED_ITS ---
HPI - General Adult General Chief complaint: Head Injury Stated complaint: fall x2 days ago, [facility] Time Seen by Provider: 11/05/24 04:56 History of Present Illness HPI narrative: Patient is a 59-year-old female who presents to the emergency department this evening complaining of a headache and neck pain. Patient is Ethiopian-speaking only and family member who is present at bedside is helping translate for the patient. He states the patient fell at work on Saturday, she was standing on a platform approximately 3-4 feet high and fell backwards. Patient did hit her head on the concrete floor. Patient did have a brief few seconds where she thinks she may have blacked out. She did go to [facility] for work comp after the injury but family member states that they did not do CT scans, only x-rays and did not find anything abnormal. Patient continues to have headaches and neck pain so she decided to come to the ER for further evaluation. She does complain of nausea but denies any vomiting episodes. No additional symptoms or concerns at this time. Related Data Home Medications ?Medication ?Instructions ?Recorded ?Confirmed ?Last Taken ?Type empagliflozin 25 mg tablet 25 mg PO QAM 09/24/19 08/26/20 08/25/20 History (Jardiance) metformin 1,000 mg tablet 1,000 mg PO BID 09/24/19 08/26/20 08/25/20 History simvastatin 10 mg tablet 10 mg PO DAILY 09/24/19 08/26/20 08/25/20 History sitagliptin phosphate 100 mg 100 mg PO DAILY 09/24/19 08/26/20 08/25/20 History tablet (Januvia) albuterol sulfate 90 mcg/actuation 2 puff inhalation PRN PRN Wheezing 08/23/20 08/26/20 08/22/20 History aerosol inhaler multivitamin 1 tablet PO DAILY 08/23/20 08/26/20 08/25/20 History phenazopyridine 200 mg tablet See Rx Instructions .Route .COMPLEX 08/23/20 08/26/20 Unknown History (Pyridium) glimepiride 4 mg tablet 4 mg PO BID 01/05/21 01/05/21 Unknown History insulin detemir U-100 100 unit/mL 15 unit subcut HS 01/05/21 01/05/21 Unknown History (3 mL) subcutaneous pen (Levemir FlexTouch U-100 Insulin) metformin 1,000 mg tablet 1,000 mg PO BID 01/05/21 01/05/21 Unknown History simvastatin 20 mg tablet 20 mg PO DAILY 01/05/21 01/05/21 Unknown History sitagliptin phosphate 100 mg 100 mg PO DAILY 01/05/21 01/05/21 Unknown History tablet (Januvia) Allergies Allergy/AdvReac Type Severity Reaction Status Date / Time No Known Allergies Allergy Verified 11/05/24 05:08 Review of Systems Review of Systems: All systems are reviewed and are negative unless stated otherwise in the HPI. [facility] Past Medical History Medical History History of miscarriage History of female sterilization Menopausal disorder Fibromyalgia KARLY (generalized anxiety disorder) EVAN III with severe dysplasia Cervical cancer cin3 Asthma Diabetes Hyperlipidemia Surgical History Surgical History Tubal ligation status Delivery by section H/O dilation and curettage Family History Family History Mother Cancer Social History Social History Smoking status: Never smoker Second hand tobacco smoke exposure: No Alcohol intake: never Substance use: never Substance use type: does not use Living arrangements: alone Occupation/Education: unemployed Gender identity (if verbalized by the patient): Female Sexual Orientation (if Verbalized by the Patient): Straight or Heterosexual Spiritual care concerns: No Agree to blood products: Yes Exam Narrative: General: Alert, awake, afebrile, in no acute distress. HEENT: PERRL, no rhinorrhea, no post nasal drip, oropharynx clear. Neck: Trachea midline, no JVD, no lymphadenopathy, tenderness to palpation over the cervical paraspinal region, no midline tenderness to palpation. Cardiovascular: Regular rate and rhythm, no murmurs, rubs or gallops, no peripheral edema. Respiratory: Clear to auscultation bilaterally, no tachypnea, no wheezing, no rhonchi, no rubs, no respiratory distress. Abdomen: Soft, nontender, nondistended, no rebound, no guarding, no peritoneal signs. Musculoskeletal: No joint swelling or deformity, normal muscle tone. Skin: No rashes or petechia, no signs of infection. Psychiatric: Alert and oriented, normal behavior and judgment for situation. Neurological: Alert and oriented to person, place, and time. Follows all commands. No focal deficits, speech is clear and fluent. Course Vital Signs Vital signs: Vital Signs Temperature 97.0 F L 11/05/24 04:55 Pulse Rate 78 11/05/24 04:55 Respiratory Rate 18 11/05/24 04:55 Pulse Oximetry 98 11/05/24 04:55 Oxygen Delivery Room Air 11/05/24 04:55 Temperature 98.5 F 11/05/24 06:21 Pulse Rate 73 11/05/24 06:21 Respiratory Rate 18 11/05/24 06:21 Blood Pressure 127/76 11/05/24 06:21 Pulse Oximetry 98 11/05/24 06:21 Oxygen Delivery Room Air 11/05/24 04:55 Medical Decision Making MDM Narrative Medical decision making narrative: The patient was evaluated by myself in the emergency department. History is obtained from patient who is an independent historian and physical exam was performed. External medical records were reviewed at this time. Patient was administered an oral Mcclellan 5-325 mg. Imaging studies obtained included CT brain and C-spine without IV contrast which was independently interpreted by me revealing no acute process, which is pending final radiology interpretation. Differential diagnosis considerations include intracranial hemorrhage, cervical fracture, concussion. Comorbidities impacting this visit include none. I have evaluated and discussed social determinants of health with the patient that could potentially impact subsequent diagnosis and treatment plans. On repeat assessment of the patient, reevaluation revealed that the patient is doing well and is in no acute distress. Patient symptoms have improved since she arrived to our emergency department. Repeat vital signs were all reviewed and noted to be stable. Differential diagnosis and treatment plan were discussed with the patient at bedside. Patient agrees with discussion and after shared medical decision making agrees with discharge. All questions were answered to the patient's satisfaction. Patient will follow up with PCP in 3-5 days. She was provided with a work note per her request. Patient was provided with strict return precautions and instructed to return to the emergency department if any new or worsening symptoms develop. The patient was discharged in stable condition. Vital Signs Vital Signs: Vital Signs Temperature 97.0 F L 11/05/24 04:55 Pulse Rate 78 0710/25 04:55 Respiratory Rate 18 11/05/24 04:55 Pulse Oximetry 98 11/05/24 04:55 Oxygen Delivery Room Air 11/05/24 04:55 Temperature 98.5 F 11/05/24 06:21 Pulse Rate 73 11/05/24 06:21 Respiratory Rate 18 11/05/24 06:21 Blood Pressure 127/76 11/05/24 06:21 Pulse Oximetry 98 11/05/24 06:21 Oxygen Delivery Room Air 11/05/24 04:55 Discharge Plan Discharge Clinical Impression: Fall from ground level, Head injury, Neck pain Patient Disposition: Home Condition: Improved Instructions: Antibiotic Form, Concussion (ED), Head Injury (ED) Additional Instructions: Please follow-up with your family doctor within the next 3-5 days. Return emergency department if any new or worsening symptoms develop. Patient Language: Ethiopian Prescriptions: No Action Jardiance 25 mg Tablet 25 mg PO QAM Januvia 100 mg tablet 100 mg PO DAILY metformin 1,000 mg Tablet 1,000 mg PO BID simvastatin 10 mg Tablet 10 mg PO DAILY multivitamin Tablet 1 tablet PO DAILY phenazopyridine [Pyridium] 200 mg Tablet See Rx Instructions .ROUTE .COMPLEX Rx Instructions: . albuterol sulfate 90 mcg/actuation HFA aerosol inhaler 2 puff INHALATION PRN PRN (Reason: Wheezing) ibuprofen [IBU] 600 mg tablet 600 mg PO Q6H PRN (Reason: pain) Qty: 30 0RF simvastatin 20 mg tablet 20 mg PO DAILY metformin 1,000 mg tablet 1,000 mg PO BID glimepiride 4 mg tablet 4 mg PO BID Levemir FlexTouch U100 Insulin 100 unit/mL (3 mL) insulin pen 15 unit SUBCUT HS Januvia 100 mg tablet 100 mg PO DAILY ertapenem 1 gram recon soln 1 g IV DAILY 14 Days Qty: 10 1RF Rx Instructions: No Labs Ordered. SASH Flush with NS 3-10ml and Heparin 10 unit/ml 3-5ml. DO NOT PULL PICC LINE UNTIL AFTER APPROVAL from CT RESULTS. polyethylene glycol 3350 [Miralax] 17 gram/dose powder 17 g PO DAILY Qty: 119 0RF docusate sodium [Colace] 100 mg capsule 100 mg PO DAILY Qty: 30 0RF Saccharomyces boulardii 250 mg capsule 250 mg PO BID Qty: 40 0RF naproxen 500 mg tablet 500 mg PO BID Qty: 14 0RF methocarbamol 500 mg tablet 500 mg PO TID Qty: 21 0RF cyclobenzaprine 10 mg tablet 10 mg PO TID PRN (Reason: muscle spasm) Qty: 20 0RF Follow-up/Referrals: Makayla,HEATHER Ferguson [Primary Care Provider] - 3 Days Stand Alone Forms: Work/School Release IP Time of Disposition: 06:23
[2024-11-05 06:21] VITALS: BP 127/76; PULSE 73; RESP 18; TEMP 36.9; O2SAT 98
[2024-11-05] MEDS: HYDROcodone/acetaminophen (*CRX) 5-325 MG TABLET 1 TAB PO (06:21)
== END 2024-11-05 06:36 | disposition home or self-care (01) ==
PROVIDERS: Emergency Provider Emergency Medicine; PCP Physician Assistant
DX: S09.90XA Unspecified injury of head, initial encounter (principal); M54.2 Cervicalgia; W17.89XA Other fall from one level to another, initial encounter; Y92.9 Unspecified place or not applicable; Y99.0 Civilian activity done for income or pay
CPT/HCPCS: 70450; 72125; 99284; A9270